=== PATIENT | male | born 1945 | race Two or more races ===

== ENCOUNTER 2017-09-23 10:15 | Inpatient (IN) | payer MEDICAID ==
[~2017-09-23] VITALS: Ht 162.6 cm; Wt 64.6 kg
[2017-09-23] VITALS (9 sets, daily range): BP systolic 147–176; BP diastolic 75–105
[~2017-09-23 10:15] MED LIST: ATORVASTATIN CA10 MG ORAL; JANUVIA25 MG ORAL
[2017-09-23] MEDS: Sodium Chloride 500ML 550 ML IV SCH ×3 (10:33→21:32)
[2017-09-23 10:37] LABS: BASOPHILS % (AUTO) 1.4 % (0.0-2.0); EOSINOPHILS % (AUTO) 1.2 % (0.0-3.0); HEMATOCRIT 50.4 % (42.0-52.0); HEMOGLOBIN 16.8 G/DL (14.2-18.0); LYMPHOCYTES % (AUTO) 43.7 % (20.0-45.0); MEAN CORPUSCULAR VOLUME 91 FL (80-99); MONOCYTES % (AUTO) 13.1 % (1.0-10.0); NEUTROPHILS % (AUTO) 40.5 % (45.0-75.0); PLATELET COUNT 272 K/UL (150-450); RED BLOOD COUNT 5.55 M/UL (4.70-6.10); RED CELL DISTRIBUTION WIDTH 11.5 % (11.6-14.8); WHITE BLOOD COUNT 4.8 K/UL (4.8-10.8)
[2017-09-23 10:42] LABS: APPEARANCE,URINE CLEAR; BILIRUBIN, URINE NEGATIVE (NEGATIVE); COLOR,URINE PALE YELLOW; GLUCOSE, URINE (UA) NEGATIVE (NEGATIVE); KETONES,URINE NEGATIVE (NEGATIVE); LEUKOCYTE ESTERASE ,URINE NEGATIVE (NEGATIVE); NITRITE,URINE NEGATIVE (NEGATIVE); PH,URINE 8 (4.5-8.0); PROTEIN,URINE NEGATIVE (NEGATIVE); UROBILINOGEN,URINE NORMAL MG/DL (0.0-1.0)
[2017-09-23 10:50] LABS: INR 1.1 (0.9-1.1)
[2017-09-23 10:53] LABS: ANION GAP 7 mmol/L (5-15); BLOOD UREA NITROGEN 10 mg/dL (7-18); CALCIUM 9.3 MG/DL (8.5-10.1); CARBON DIOXIDE 28 MMOL/L (21-32); CHLORIDE 103 MMOL/L (98-107); CREATININE 0.9 MG/DL (0.55-1.30); POTASSIUM 3.9 MMOL/L (3.5-5.1); SODIUM 138 MMOL/L (136-145)
--- NOTE | 2017-09-23 10:57 | Diagnostic Imaging Report ---
Indication: Dizziness and headache Technique: spiral acquisitions obtained through the brain. Angled axial and coronal 5 x 5 mm slices were reconstructed. No IV contrast utilized. Radiation dose was minimized using automated exposure control Total dose length product 1460.32 mGycm. CTDIvol(s) 70.38 mGy Comparison: none FINDINGS: There is a 6 mm focus of slightly increased attenuation in the central greta. No evidence of acute hemorrhage or edema otherwise. No mass effect or midline shift. There is age-related enlargement of the ventricles and extra axial CSF spaces. There is periventricular deep white matter ischemic change. Normal block-white differentiation. Visualized orbits are unremarkable. There is minimal ethmoid sinus disease. The mastoids are clear. Intact calvarium. IMPRESSION: 6 mm focus of slightly increased attenuation in the central greta, of uncertain significance. Could represent a small focus of subacute hemorrhage, small vascular malformation, small mass lesion, or could be artifactual. Contrast MRI is recommended for further evaluation No evidence of acute intracranial bleed or mass effect otherwise Chronic and age-related changes, as described Findings discussed by phone with Dr. Osei in the emergency room at the time of interpretation The CT scanner at [facility] is accredited by the [employer] and the scans are performed using protocols designed to limit radiation exposure to as low as reasonably achievable to attain images of sufficient resolution adequate for diagnostic evaluation
[2017-09-23] MEDS ORDERED: Gadavist 7.5mMol/7.5ml vial IV PRN (11:00)
[2017-09-23 11:05] LABS: ALANINE AMINOTRANSFERASE 36 U/L (12-78); ALBUMIN 3.8 G/DL (3.4-5.0); ALBUMIN/GLOBULIN RATIO 0.9 (1.0-2.7); ALKALINE PHOSPHATASE 73 U/L (46-116); ASPARTATE AMINO TRANSFERASE 29 U/L (15-37); BILIRUBIN,TOTAL 0.8 MG/DL (0.2-1.0); CREATINE KINASE 46 U/L (26-308)
--- NOTE | 2017-09-23 11:19 | Diagnostic Imaging Report ---
Indication: Chest pain Technique: One view of the chest Comparison: none Findings: Minimal scarring is seen in both lung apices. There is some central bronchial wall thickening. Lungs and pleural spaces are otherwise clear. Heart size is normal. Impression: No acute process
--- NOTE | 2017-09-23 11:44 | Emergency Room Report ---
History of Present Illness General Chief Complaint: Dizziness Source: Patient, EMS Present Illness HPI Patient was transported to the hospital by BLS. They claim that the patient complained of dizziness. The patient to me complains of headache that severe 10 /10 and blindness. He says that the blindness has worsened over the last week to 2 weeks. Used to have some vision in one of his eyes but that this is now gone completely. He says the headache is 10/10 pounding throughout the head. He denies any fevers or recent trauma. Apparently paramedics were called by this patient's social organization professor. Another woman involved in his care claims that the blindness has been present for over 2 months. He recently saw specialist but she's not sure what type is specialist. The social organization professor called EMS because the patient stated he was suicidal. He stated he has nothing to live for. He is homeless. His plan was to cut himself with a knife that he has. Person who watches over him was unable to find this knife. No chest pain, NVD, dysuria, extremity pain. Allergies: Coded Allergies: No Known Allergies (Unverified , 09/23/17) Patient History Past Medical History: see triage record Social History: Denies: alcohol use, drug use Social History Narrative homeless Reviewed Nursing Documentation: PMH: Agreed; PSxH: Agreed Nursing Documentation-PMH Past Medical History: No Stated History Hx Cardiac Problems: Yes Hx Hypertension: Yes Hx Pacemaker: No Hx Asthma: No Hx COPD: No Hx Diabetes: Yes Hx Cancer: No Hx Gastrointestinal Problems: No Hx Dialysis: No Hx Neurological Problems: No Hx Cerebrovascular Accident: No Hx Seizures: No Review of Systems All Other Systems: negative except mentioned in HPI Physical Exam Vital Signs Date Time Temp Pulse Resp B/P (MAP) Pulse Ox O2 Delivery O2 Flow Rate FiO2 09/23/17 09:53 97.9 60 18 169/100 98 Room Air 97.9 Sp02 EP Interpretation: reviewed, normal General Appearance: well appearing, no apparent distress, GCS 15 Head: normocephalic Eyes: bilateral eye other - Cannot see examiner - dense cataracts bilat ENT: moist mucus membranes Neck: supple Respiratory: lungs clear, normal breath sounds Cardiovascular #1: regular rate, rhythm Cardiovascular #2: 2+ radial (R) Gastrointestinal: normal inspection, normal bowel sounds, non tender, no mass, non-distended Musculoskeletal: back normal, gait/station normal, normal range of motion Neurologic: alert, oriented x3, motor strength/tone normal, DTRs symmetric, sensory intact, cerebellar normal, normal gait, other - Cannot follow finger with extraocular motions. There is some random eye movements. Psychiatric: depressed affect Suicide Risk Assessment: Suicidal Ideation: Yes Had intent to initiate attempt: Yes Pt's plan for suicide attempt: Yes Has means to complete attempt: Yes Skin: normal inspection, warm/dry Medical Decision Making Diagnostic Impression: Primary Impression: Blindness Additional Impressions: Headache Qualified Codes: R51 - Headache Suicidal ideation Cataracts, bilateral Qualified Codes: H26.9 - Unspecified cataract ER Course Patient presents with a blindness with worsening recently. Differential includes stroke, bleed, mass amongst others. With a headache this is quite disconcerting. Evaluation will be with CT the head, chest x-ray EKG and labs including sedimentation rate. Treatment will be with analgesia. Regarding the c/o suicidality this needs to be investigated also. We are attempting to contact our social workers. EKG without injury. CT with possible pontine lesion - recommended MRI. Labs with normal CBC, CMP. ESR slightly elevated, but doubt vasculitis (Temporal arteritis, etc). UA clear. Discussion with person who called paramedics - she claims he stated he wanted to take his life with knife. She looked for one and could not find one. She states seen by Opthalmologist who is trying to schedule cataract surgery. managed services sales consultant consult requested. Not available. Patient still states suicidal. Plan = cut self with knife. Admit med with sitter. Headache better. Admit Dr. Montgomery with consultation Dr. Marvin. Laboratory Tests Test 09/23/17 10:20 White Blood Count 4.8 K/UL (4.8-10.8) Red Blood Count 5.55 M/UL (4.70-6.10) Hemoglobin 16.8 G/DL (14.2-18.0) Hematocrit 50.4 % (42.0-52.0) Mean Corpuscular Volume 91 FL (80-99) Mean Corpuscular Hemoglobin 30.3 PG (27.0-31.0) Mean Corpuscular Hemoglobin Concent 33.4 G/DL (32.0-36.0) Red Cell Distribution Width 11.5 % (11.6-14.8) L Platelet Count 272 K/UL (150-450) Mean Platelet Volume 7.4 FL (6.5-10.1) Neutrophils (%) (Auto) 40.5 % (45.0-75.0) L Lymphocytes (%) (Auto) 43.7 % (20.0-45.0) Monocytes (%) (Auto) 13.1 % (1.0-10.0) H Eosinophils (%) (Auto) 1.2 % (0.0-3.0) Basophils (%) (Auto) 1.4 % (0.0-2.0) Erythrocyte Sedimentation Rate 35 MM/HR (0-20) H Prothrombin Time 11.5 SEC (9.30-11.50) Prothrombin Time INR 1.1 (0.9-1.1) PTT 30 SEC (23-33) Urine Color Pale yellow Urine Appearance Clear Urine pH 8 (4.5-8.0) Urine Specific [place] 1.010 (1.005-1.035) Urine Protein Negative (NEGATIVE) Urine Glucose (UA) Negative (NEGATIVE) Urine Ketones Negative (NEGATIVE) Urine Occult Blood Negative (NEGATIVE) Urine Nitrite Negative (NEGATIVE) Urine Bilirubin Negative (NEGATIVE) Urine Urobilinogen Normal MG/DL (0.0-1.0) Urine Leukocyte Esterase Negative (NEGATIVE) Sodium Level 138 MMOL/L (136-145) Potassium Level 3.9 MMOL/L (3.5-5.1) Chloride Level 103 MMOL/L (98-107) Carbon Dioxide Level 28 MMOL/L (21-32) Anion Gap 7 mmol/L (5-15) Blood Urea Nitrogen 10 mg/dL (7-18) Creatinine 0.9 MG/DL (0.55-1.30) Estimate Glomerular Filtration Rate mL/min (>60) Glucose Level 94 MG/DL (74-106) Calcium Level 9.3 MG/DL (8.5-10.1) Total Bilirubin 0.8 MG/DL (0.2-1.0) Aspartate Amino Transferase (AST) 29 U/L (15-37) Alanine Aminotransferase (ALT) 36 U/L (12-78) Alkaline Phosphatase 73 U/L (46-116) Total Creatine Kinase 46 U/L (26-308) Troponin I 0.000 ng/mL (0.000-0.056) Pro-B-Type Natriuretic Peptide 85 pg/mL (0-125) Total Protein 8.1 G/DL (6.4-8.2) Albumin 3.8 G/DL (3.4-5.0) Globulin 4.3 g/dL Albumin/Globulin Ratio 0.9 (1.0-2.7) L Thyroid Stimulating Hormone (TSH) 1.165 uiU/mL (0.358-3.740) EKG Diagnostic Results Rate: bradycardiac Rhythm: NSR ST Segments: no acute changes Rhythm Strip Diag. Results EP Interpretation: yes Rhythm: no PVC's, no ectopy, other - Bradycardia Chest X-Ray Diagnostic Results Chest X-Ray Diagnostic Results : Chest X-Ray Ordered: Yes # of Views/Limited/Complete: 1 View Indication: Other EP Interpretation: Yes Interpretation: no consolidation, no effusion, no pneumothorax, other - COPD Impression: Other Electronically Signed by: Electronically signed by Sean Osei MD CT/MRI/US Diagnostic Results CT/MRI/US Diagnostic Results #1: Imaging Test Ordered: CT head Impression 6 mm focus of slightly increased attenuation in the central greta. MRI recommended CT/MRI/US Diagnostic Results #2: Imaging Test Ordered: MRI with contrast brain Last Vital Signs Date Time Temp Pulse Resp B/P (MAP) Pulse Ox O2 Delivery O2 Flow Rate FiO2 09/23/17 19:40 97.8 60 15 150/97 99 Room Air 97.8 Status: improved Disposition: ADMITTED INPATIENT Condition: Serious Referrals: NON PHYSICIAN (PCP) Sean Osei M.D. Sep 23, 2017 11:44
--- NOTE | 2017-09-23 12:22 | Diagnostic Imaging Report ---
Indication: Blindness times one week. Headache. Evaluation of abnormality demonstrated on recent CT scan Technique: sagittal T1 fast spin echo, axial T1 and T2 FLAIR PROPELLER, axial T2 FS PROPELLER, T2* GRE, axial diffusion weighted images, post contrast axial and coronal T1 FLAIR PROPELLER images. ADC and exponential ADC maps generated Comparison: Brain CT performed one hour earlier Findings: Tiny lacunar infarcts are seen in the bilateral cerebral peduncles, but these do not correlate to the abnormality demonstrated on recent CT scan. A tiny hyperintense focus is seen to the right of the midline in the greta on the T2 FLAIR and T2-weighted images, but there is not seen on any other images, an is more lateral smaller than the CT abnormality. No abnormal areas of restricted diffusion to suggest acute infarction. No acute hemorrhage or edema. No mass effect nor midline shift. No abnormal contrast enhancement. There is age-related enlargement of the ventricles and extra axial CSF spaces. There is periventricular and deep white matter hyperintensity consistent with chronic ischemic change. The vascular flow voids are preserved. Visualized orbits and sinuses are unremarkable. . Impression: No findings are demonstrated that would correlate with the pontine abnormality reported on recent brain CT scan. That finding is therefore most likely artifactual Negative for acute intracranial bleed, mass effect, infarct, or contrast enhancing lesion Chronic and age-related changes, as described
[2017-09-23] MEDS ORDERED: NKM (12:31)
[2017-09-23] MEDS ORDERED: Albuterol/Ipratropium 3ml neb HHN PRN (18:00)
[2017-09-23] MEDS ORDERED: Morphine Sulfate 2mg/ml Inj(IV/IM USE ONLY) IVP PRN (18:00)
[2017-09-23] MEDS ORDERED: Miralax 17gm pkt ORAL PRN (18:00)
[2017-09-23] MEDS ORDERED: Nitroglycerin Subl 0.4mg tab SL PRN (18:00)
[2017-09-23] MEDS ORDERED: LORazepam Inj 2mg/ml 1ml IV PRN (18:00)
[2017-09-23] MEDS ORDERED: Mylanta II UD 30ml ORAL PRN (18:00)
[2017-09-23] MEDS: NovoLOG Insulin Flexpen SUBQ SCH (21:00)
--- NOTE | 2017-09-23 21:15 | History and Physical Report ---
DATE OF ADMISSION: 09/23/2017 CONSULTANTS: 1. Jesus Pichardo M.D. 2. Cynthia Marvin M.D. CHIEF COMPLIANT: Suicidal ideation, headache, blindness, and hypercholesterol. HISTORY: The patient is a 72-year-old male, who presents to [facility] with history of headache, has to kill himself. The patient in the ER, diagnosed with the above, being admitted to medical floor for further treatment. Currently, calm, lethargic in bed, O2 NC, refusing to answer questions. PAST MEDICAL HISTORY: As mentioned, headache, blindness, and hypercholesterol. PAST SURGICAL HISTORY: Unknown. MEDICATIONS: Gadavist and IV fluids. ALLERGIES: Denies. SOCIAL HISTORY: Unable to obtain secondary to the patient's condition. REVIEW OF SYSTEMS: Unavailable. PHYSICAL EXAMINATION: GENERAL: Lethargic in bed, refusing to answer questions. VITAL SIGNS: Temperature is 97 degrees, pulse 55, respirations 17, and blood pressure 173/87. CARDIOVASCULAR: No murmur. LUNGS: Distant and clear. ABDOMEN: Bowel sounds positive. Nontender. Nondistended. EXTREMITIES: No cyanosis, clubbing, or edema. NEUROLOGIC: The patient moves all extremities, does not want to follow commands. LABORATORY AND DIAGNOSTIC DATA: CBC is normal. BMP is normal. INR is 1.1 and PTT is 30. Urinalysis is negative. ASSESSMENT: 1. Headache. 2. Blindness. 3. Suicidal. 4. Hypercholesterol. 5. Hypertension. PLAN: 1. Continue previous medications. 2. Psychiatric treatment. 3. Dietary followup. 4. Check labs in the morning. 5. OT, PT, dietary evaluation. 6. CBC and BMP in the morning. 7. Dr. Pichardo, Dr. Marvin, and Dr. Yanez to evaluation. 8. We will continue to follow this patient. Juan Montgomery D.O. DR: JAIME JOB#: [id number] CC:
[2017-09-23] MEDS: Heparin 5000 units/ml inj SUBQ SCH (21:33)
--- NOTE | 2017-09-23 23:14 | Diagnostic Imaging Report ---
APPROVED REPORT CPT Code: 28074 Vascular Symptoms Comments: SYNCOPE. Doppler Spectral Velocity Analysis RightLeft BILATERAL: CCA/BULB - Imaging reveals irregular, minimal plaque in both carotid bulbs. arteries. The Doppler spectral flow analysis is within normal limits throughout the internal and external carotid arteries. VERTEBRALS - Imaging reveals both vertebral arteries to be patent, without evidence of stenosis or steal.
[2017-09-24] VITALS (7 sets, daily range): BP systolic 120–147; BP diastolic 57–93
[2017-09-24] MEDS: Sodium Chloride 500ML 550 ML IV SCH (04:49)
[2017-09-24] MEDS: NovoLOG Insulin Flexpen SUBQ SCH ×4 (06:14→21:00)
[2017-09-24 07:04] LABS: BASOPHILS % (AUTO) 1.4 % (0.0-2.0); EOSINOPHILS % (AUTO) 2.3 % (0.0-3.0); HEMATOCRIT 44.1 % (42.0-52.0); HEMOGLOBIN 15.5 G/DL (14.2-18.0); LYMPHOCYTES % (AUTO) 48.6 % (20.0-45.0); MEAN CORPUSCULAR VOLUME 90 FL (80-99); MONOCYTES % (AUTO) 14.6 % (1.0-10.0); PLATELET COUNT 222 K/UL (150-450); RED CELL DISTRIBUTION WIDTH 11.1 % (11.6-14.8); WHITE BLOOD COUNT 3.7 K/UL (4.8-10.8)
[2017-09-24 07:16] LABS: INR 1.1 (0.9-1.1)
[2017-09-24 07:39] LABS: ALANINE AMINOTRANSFERASE 30 U/L (12-78); ALBUMIN 3.2 G/DL (3.4-5.0); ALBUMIN/GLOBULIN RATIO 0.9 (1.0-2.7); ALKALINE PHOSPHATASE 63 U/L (46-116); ANION GAP 9 mmol/L (5-15); ASPARTATE AMINO TRANSFERASE 26 U/L (15-37); BILIRUBIN,TOTAL 0.9 MG/DL (0.2-1.0); BLOOD UREA NITROGEN 9 mg/dL (7-18); CARBON DIOXIDE 25 MMOL/L (21-32); CHLORIDE 105 MMOL/L (98-107); CHOLESTEROL 167 MG/DL (< 200); CREATININE 0.8 MG/DL (0.55-1.30); HDL CHOLESTEROL 49 MG/DL (40-60); POTASSIUM 3.8 MMOL/L (3.5-5.1); SODIUM 139 MMOL/L (136-145); TRIGLYCERIDES 69 MG/DL (30-150)
[2017-09-24] MEDS: sitaGLIPtin 25mg tab ORAL SCH (09:20)
[2017-09-24] MEDS: Heparin 5000 units/ml inj SUBQ SCH ×2 (09:22→22:14)
--- NOTE | 2017-09-24 12:05 | General Progress Note ---
Assessment/Plan Problem List: (1) Dizziness ICD Codes: R42 - Dizziness and giddiness SNOMED: 841857459, 548857569 (2) Suicidal ideation ICD Codes: R45.851 - Suicidal ideations SNOMED: 1029174 (3) Cataracts, bilateral ICD Codes: H26.9 - Unspecified cataract SNOMED: 43766664 Qualifiers: Qualified Codes: H26.9 - Unspecified cataract (4) Blindness ICD Codes: H54.7 - Unspecified visual loss SNOMED: 076959362 (5) Headache ICD Codes: R51 - Headache SNOMED: 01742519 Qualifiers: Qualified Codes: R51 - Headache Status: unchanged Assessment/Plan ot pt diet pain control neuro psyc f/u cbc bmp am dc plan Subjective Constitutional: Reports: weakness Allergies: Coded Allergies: No Known Allergies (Unverified , 09/23/17) All Systems: reviewed and negative except above Subjective calm in bed Objective Last 24 Hour Vital Signs Date Time Temp Pulse Resp B/P (MAP) Pulse Ox O2 Delivery O2 Flow Rate FiO2 09/24/17 09:00 Room Air 09/24/17 08:00 97.7 64 16 147/89 (108) 95 97.7 09/24/17 04:00 98.3 68 18 120/57 (78) 95 98.3 09/24/17 00:22 Room Air 09/24/17 00:00 97.9 66 20 146/93 (110) 98 97.9 09/23/17 20:00 97.7 60 20 147/89 (108) 100 97.7 09/23/17 19:40 97.8 60 15 150/97 99 Room Air 97.8 09/23/17 19:40 97.8 60 15 150/97 99 Room Air 208.0 09/23/17 17:30 97.8 55 19 169/93 99 Room Air 97.8 09/23/17 16:30 51 17 154/105 99 Room Air 09/23/17 15:30 57 16 155/84 99 Room Air 09/23/17 14:30 56 18 159/75 100 Room Air 09/23/17 13:30 97.8 55 17 173/87 100 Room Air 97.8 09/23/17 12:30 97.5 57 14 176/89 100 Room Air 97.5 Intake and Output 09/23/17 09/24/17 19:00 07:00 Intake Total 300 ml 550 ml Output Total 400 ml Balance 300 ml 150 ml Intake IV Total 300 ml 550 ml Output Urine Total 400 ml # Voids 1 3 Laboratory Tests 09/24/17 06:10: White Blood Count 3.7L, Red Blood Count 4.90, Hemoglobin 15.5, Hematocrit 44.1, Mean Corpuscular Volume 90, Mean Corpuscular Hemoglobin 31.6H, Mean Corpuscular Hemoglobin Concent 35.1, Red Cell Distribution Width 11.1L, Platelet Count 222, Mean Platelet Volume 8.1, Neutrophils (%) (Auto) 33.0L, Lymphocytes (%) (Auto) 48.6H, Monocytes (%) (Auto) 14.6H, Eosinophils (%) (Auto) 2.3, Basophils (%) ( Auto) 1.4, Prothrombin Time 11.2, Prothromb Time International Ratio 1.1, Activated Partial Thromboplast Time 29, Sodium Level 139, Potassium Level 3.8, Chloride Level 105, Carbon Dioxide Level 25, Anion Gap 9, Blood Urea Nitrogen 9 , Creatinine 0.8, Estimat Glomerular Filtration Rate , Glucose Level 84, Calcium Level 9.0, Total Bilirubin 0.9, Aspartate Amino Transf (AST/SGOT) 26, Alanine Aminotransferase (ALT/SGPT) 30, Alkaline Phosphatase 63, Total Protein 6.9, Albumin 3.2L, Globulin 3.7, Albumin/Globulin Ratio 0.9L, Triglycerides Level 69, Cholesterol Level 167, LDL Cholesterol 118H, HDL Cholesterol 49, Cholesterol/HDL Ratio 3.4, Thyroid Stimulating Hormone (TSH) 1.214 Height (Feet): 5 Height (Inches): 4.00 Weight (Pounds): 145 General Appearance: lethargic EENT: normal ENT inspection Neck: normal alignment Cardiovascular: normal peripheral pulses, normal rate, regular rhythm Respiratory/Chest: chest wall non-tender, lungs clear, normal breath sounds Abdomen: normal bowel sounds, non tender, soft Extremities: normal inspection Edema: no edema noted Arm (L), no edema noted Arm (R), no edema noted Leg (L), no edema noted Leg (R), no edema noted Pedal (L), no edema noted Pedal (R), no edema noted Generalized Neurologic: motor weakness Skin: normal pigmentation, warm/dry MontgomeryJuang DO Sep 24, 2017 12:05
--- NOTE | 2017-09-24 12:05 | Consultation ---
History of Present Illness General Date patient seen: Sep 24, 2017 Chief Complaint: Dizziness Present Illness HPI 72-year-old male, who presents to [facility] with history of headache the pt stated that he was suicidal in er. During my evaluation he stated that he is depressed about his eye and not suicidal. the pt denied depressive sxs no nj or psychosis Allergies: Coded Allergies: No Known Allergies (Unverified , 09/23/17) Medication History Scheduled Atorvastatin Calcium* (Lipitor*), 10 MG ORAL BEDTIME, (Reported) No Known Medications* (NKM - No Known Medications*), 0 ., (Reported) Sitagliptin* (Januvia*), 25 MG ORAL DAILY, (Reported) Patient History Limited by: medical condition History Provided By: Patient, Medical Record, PMD Healthcare decision maker Resuscitation status Full Code Advanced Directive on File No Past Medical/Surgical History Past Medical/Surgical History: (1) Suicidal ideation (2) Cataracts, bilateral (3) Dizziness (4) Blindness (5) Headache (6) Diabetes mellitus (7) unable to care for himself Review of Systems Psychiatric: Reports: prior hx, anxiety, depressed feelings, emotional problems Physical Exam General Appearance: no apparent distress, alert Neurologic: oriented x 3, responsive, depressed affect Last 24 Hour Vital Signs Date Time Temp Pulse Resp B/P (MAP) Pulse Ox O2 Delivery O2 Flow Rate FiO2 09/24/17 09:00 Room Air 09/24/17 08:00 97.7 64 16 147/89 (108) 95 97.7 09/24/17 04:00 98.3 68 18 120/57 (78) 95 98.3 09/24/17 00:22 Room Air 09/24/17 00:00 97.9 66 20 146/93 (110) 98 97.9 09/23/17 20:00 97.7 60 20 147/89 (108) 100 97.7 09/23/17 19:40 97.8 60 15 150/97 99 Room Air 97.8 09/23/17 19:40 97.8 60 15 150/97 99 Room Air 208.0 09/23/17 17:30 97.8 55 19 169/93 99 Room Air 97.8 09/23/17 16:30 51 17 154/105 99 Room Air 09/23/17 15:30 57 16 155/84 99 Room Air 09/23/17 14:30 56 18 159/75 100 Room Air 09/23/17 13:30 97.8 55 17 173/87 100 Room Air 97.8 09/23/17 12:30 97.5 57 14 176/89 100 Room Air 97.5 Intake and Output 09/23/17 09/24/17 19:00 07:00 Intake Total 300 ml 550 ml Output Total 400 ml Balance 300 ml 150 ml Intake IV Total 300 ml 550 ml Output Urine Total 400 ml # Voids 1 3 Laboratory Tests Test 09/24/17 06:10 White Blood Count 3.7 K/UL (4.8-10.8) L Red Blood Count 4.90 M/UL (4.70-6.10) Hemoglobin 15.5 G/DL (14.2-18.0) Hematocrit 44.1 % (42.0-52.0) Mean Corpuscular Volume 90 FL (80-99) Mean Corpuscular Hemoglobin 31.6 PG (27.0-31.0) H Mean Corpuscular Hemoglobin Concent 35.1 G/DL (32.0-36.0) Red Cell Distribution Width 11.1 % (11.6-14.8) L Platelet Count 222 K/UL (150-450) Mean Platelet Volume 8.1 FL (6.5-10.1) Neutrophils (%) (Auto) 33.0 % (45.0-75.0) L Lymphocytes (%) (Auto) 48.6 % (20.0-45.0) H Monocytes (%) (Auto) 14.6 % (1.0-10.0) H Eosinophils (%) (Auto) 2.3 % (0.0-3.0) Basophils (%) (Auto) 1.4 % (0.0-2.0) Prothrombin Time 11.2 SEC (9.30-11.50) Prothromb Time International Ratio 1.1 (0.9-1.1) Activated Partial Thromboplast Time 29 SEC (23-33) Sodium Level 139 MMOL/L (136-145) Potassium Level 3.8 MMOL/L (3.5-5.1) Chloride Level 105 MMOL/L (98-107) Carbon Dioxide Level 25 MMOL/L (21-32) Anion Gap 9 mmol/L (5-15) Blood Urea Nitrogen 9 mg/dL (7-18) Creatinine 0.8 MG/DL (0.55-1.30) Estimat Glomerular Filtration Rate mL/min (>60) Glucose Level 84 MG/DL (74-106) Calcium Level 9.0 MG/DL (8.5-10.1) Total Bilirubin 0.9 MG/DL (0.2-1.0) Aspartate Amino Transf (AST/SGOT) 26 U/L (15-37) Alanine Aminotransferase (ALT/SGPT) 30 U/L (12-78) Alkaline Phosphatase 63 U/L (46-116) Total Protein 6.9 G/DL (6.4-8.2) Albumin 3.2 G/DL (3.4-5.0) L Globulin 3.7 g/dL Albumin/Globulin Ratio 0.9 (1.0-2.7) L Triglycerides Level 69 MG/DL (30-150) Cholesterol Level 167 MG/DL (< 200) LDL Cholesterol 118 mg/dL (<100) H HDL Cholesterol 49 MG/DL (40-60) Cholesterol/HDL Ratio 3.4 (3.3-4.4) Thyroid Stimulating Hormone (TSH) 1.214 uiU/mL (0.358-3.740) Microbiology Date/Time Source Procedure Growth Status 09/23/17 20:55 Rectum Received Height (Feet): 5 Height (Inches): 4.00 Weight (Pounds): 145 Medications Current Medications Medications (Trade) Dose Ordered Sig/Cornelius Route PRN Reason Start Time Stop Time Status Last Admin Dose Admin Acetaminophen (Tylenol) 650 mg Q4H PRN ORAL fever (temp>100.5F) 09/23/17 18:00 10/23/17 17:59 Al Hydroxide/Mg Hydroxide (Mylanta II) 30 ml Q6H PRN ORAL dyspepsia 09/23/17 18:00 10/23/17 17:59 Albuterol/ Ipratropium (Albuterol/ Ipratropium) 3 ml Q4H PRN HHN Shortness of Breath 09/23/17 18:00 09/28/17 17:59 Atorvastatin Calcium (Lipitor) 10 mg BEDTIME ORAL 09/23/17 21:00 10/23/17 20:59 09/23/17 21:32 Clonidine HCl (Catapres Tab) 0.1 mg Q4H PRN ORAL For High Blood Pressure 09/23/17 18:00 10/23/17 17:59 Dextrose (Dextrose 50%) 25 ml STAT PRN IV Hypoglycemia 09/23/17 18:00 10/23/17 17:59 Dextrose (Dextrose 50%) 50 ml STAT PRN IV Hypoglycemia 09/23/17 18:00 10/23/17 17:59 Gadobutrol (Gadavist) 7.5 mmol NOW PRN IV Radiology Procedure 09/23/17 11:00 09/27/17 10:52 Heparin Sodium (Porcine) (Heparin 5000 units/ml) 5,000 units EVERY 12 HOURS SUBQ 09/23/17 21:00 10/23/17 20:59 09/24/17 09:22 Insulin Aspart (NovoLOG) BEFORE MEALS AND HS SUBQ 09/23/17 21:00 10/23/17 20:59 Lorazepam (Ativan 2mg/ml 1ml) 0.5 mg Q4H PRN IV For Anxiety 09/23/17 18:00 09/30/17 17:59 Morphine Sulfate (Morphine Sulfate) 1 mg Q4H PRN IVP For Pain 7-09/23/17 18:00 09/30/17 17:59 Nitroglycerin (Ntg) 0.4 mg Q5M X 3 DOSES PRN SL Prn Chest Pain 09/23/17 18:00 10/23/17 17:59 Ondansetron HCl (Zofran) 4 mg Q6H PRN IVP Nausea & Vomiting 09/23/17 18:00 10/23/17 17:59 Polyethylene Glycol (Miralax) 17 gm HSPRN PRN ORAL Constipation 09/23/17 18:00 10/23/17 17:59 Sitagliptin Phosphate (Januvia) 25 mg DAILY ORAL 09/24/17 09:00 10/24/17 08:59 09/24/17 09:20 Temazepam (Restoril) 15 mg HSPRN PRN ORAL Insomnia 09/23/17 18:00 09/30/17 17:59 Assessment/Plan Status: stable Assessment/Plan Adjustment Disorder Anxiety -ativan prn -the pt is not hold-able and not at imminent dts/dto Cynthia Marvin MD Sep 24, 2017 12:05
--- NOTE | 2017-09-24 12:31 | Consultation ---
History of Present Illness General Date patient seen: Sep 24, 2017 Chief Complaint: Dizziness Present Illness HPI 72 year old male with hx of DM, HtN, with recent blindness, Used to have some vision in one of his eyes but that this is now gone completely. Apparently paramedics were called by this patient's older adult social work specialist. Because he was not able to take care of himself. there was a concern that he might be suicidal. Allergies: Coded Allergies: No Known Allergies (Unverified , 09/23/17) Medication History Scheduled Atorvastatin Calcium* (Lipitor*), 10 MG ORAL BEDTIME, (Reported) No Known Medications* (NKM - No Known Medications*), 0 ., (Reported) Sitagliptin* (Januvia*), 25 MG ORAL DAILY, (Reported) Patient History Healthcare decision maker Resuscitation status Full Code Advanced Directive on File No Past Medical/Surgical History Past Medical/Surgical History: (1) Diabetes mellitus Review of Systems All Other Systems: negative except mentioned in HPI Physical Exam General Appearance: WD/WN Lines, tubes and drains: peripheral, central line HEENT: normocephalic, atraumatic Neck: non-tender, normal alignment Respiratory/Chest: chest wall non-tender, lungs clear Breasts: no masses Cardiovascular/Chest: normal peripheral pulses Abdomen: normal bowel sounds Genitourinary/Rectal: normal genital exam, normal prostate exam Extremities: normal range of motion Last 24 Hour Vital Signs Date Time Temp Pulse Resp B/P (MAP) Pulse Ox O2 Delivery O2 Flow Rate FiO2 09/24/17 12:00 96.3 63 16 141/80 (100) 98 96.3 09/24/17 09:00 Room Air 09/24/17 08:00 97.7 64 16 147/89 (108) 95 97.7 09/24/17 04:00 98.3 68 18 120/57 (78) 95 98.3 09/24/17 00:22 Room Air 09/24/17 00:00 97.9 66 20 146/93 (110) 98 97.9 09/23/17 20:00 97.7 60 20 147/89 (108) 100 97.7 09/23/17 19:40 97.8 60 15 150/97 99 Room Air 97.8 09/23/17 19:40 97.8 60 15 150/97 99 Room Air 208.0 09/23/17 17:30 97.8 55 19 169/93 99 Room Air 97.8 09/23/17 16:30 51 17 154/105 99 Room Air 09/23/17 15:30 57 16 155/84 99 Room Air 09/23/17 14:30 56 18 159/75 100 Room Air 09/23/17 13:30 97.8 55 17 173/87 100 Room Air 97.8 09/23/17 12:30 97.5 57 14 176/89 100 Room Air 97.5 Intake and Output 09/23/17 09/24/17 19:00 07:00 Intake Total 300 ml 550 ml Output Total 400 ml Balance 300 ml 150 ml Intake IV Total 300 ml 550 ml Output Urine Total 400 ml # Voids 1 3 Laboratory Tests Test 09/24/17 06:10 White Blood Count 3.7 K/UL (4.8-10.8) L Red Blood Count 4.90 M/UL (4.70-6.10) Hemoglobin 15.5 G/DL (14.2-18.0) Hematocrit 44.1 % (42.0-52.0) Mean Corpuscular Volume 90 FL (80-99) Mean Corpuscular Hemoglobin 31.6 PG (27.0-31.0) H Mean Corpuscular Hemoglobin Concent 35.1 G/DL (32.0-36.0) Red Cell Distribution Width 11.1 % (11.6-14.8) L Platelet Count 222 K/UL (150-450) Mean Platelet Volume 8.1 FL (6.5-10.1) Neutrophils (%) (Auto) 33.0 % (45.0-75.0) L Lymphocytes (%) (Auto) 48.6 % (20.0-45.0) H Monocytes (%) (Auto) 14.6 % (1.0-10.0) H Eosinophils (%) (Auto) 2.3 % (0.0-3.0) Basophils (%) (Auto) 1.4 % (0.0-2.0) Prothrombin Time 11.2 SEC (9.30-11.50) Prothromb Time International Ratio 1.1 (0.9-1.1) Activated Partial Thromboplast Time 29 SEC (23-33) Sodium Level 139 MMOL/L (136-145) Potassium Level 3.8 MMOL/L (3.5-5.1) Chloride Level 105 MMOL/L (98-107) Carbon Dioxide Level 25 MMOL/L (21-32) Anion Gap 9 mmol/L (5-15) Blood Urea Nitrogen 9 mg/dL (7-18) Creatinine 0.8 MG/DL (0.55-1.30) Estimat Glomerular Filtration Rate mL/min (>60) Glucose Level 84 MG/DL (74-106) Calcium Level 9.0 MG/DL (8.5-10.1) Total Bilirubin 0.9 MG/DL (0.2-1.0) Aspartate Amino Transf (AST/SGOT) 26 U/L (15-37) Alanine Aminotransferase (ALT/SGPT) 30 U/L (12-78) Alkaline Phosphatase 63 U/L (46-116) Total Protein 6.9 G/DL (6.4-8.2) Albumin 3.2 G/DL (3.4-5.0) L Globulin 3.7 g/dL Albumin/Globulin Ratio 0.9 (1.0-2.7) L Triglycerides Level 69 MG/DL (30-150) Cholesterol Level 167 MG/DL (< 200) LDL Cholesterol 118 mg/dL (<100) H HDL Cholesterol 49 MG/DL (40-60) Cholesterol/HDL Ratio 3.4 (3.3-4.4) Thyroid Stimulating Hormone (TSH) 1.214 uiU/mL (0.358-3.740) Microbiology Date/Time Source Procedure Growth Status 09/23/17 20:55 Rectum Received Height (Feet): 5 Height (Inches): 4.00 Weight (Pounds): 145 Medications Current Medications Medications (Trade) Dose Ordered Sig/Cornelius Route PRN Reason Start Time Stop Time Status Last Admin Dose Admin Acetaminophen (Tylenol) 650 mg Q4H PRN ORAL fever (temp>100.5F) 09/23/17 18:00 10/23/17 17:59 Al Hydroxide/Mg Hydroxide (Mylanta II) 30 ml Q6H PRN ORAL dyspepsia 09/23/17 18:00 10/23/17 17:59 Albuterol/ Ipratropium (Albuterol/ Ipratropium) 3 ml Q4H PRN HHN Shortness of Breath 09/23/17 18:00 09/28/17 17:59 Atorvastatin Calcium (Lipitor) 10 mg BEDTIME ORAL 09/23/17 21:00 10/23/17 20:59 09/23/17 21:32 Clonidine HCl (Catapres Tab) 0.1 mg Q4H PRN ORAL For High Blood Pressure 09/23/17 18:00 10/23/17 17:59 Dextrose (Dextrose 50%) 25 ml STAT PRN IV Hypoglycemia 09/23/17 18:00 10/23/17 17:59 Dextrose (Dextrose 50%) 50 ml STAT PRN IV Hypoglycemia 09/23/17 18:00 10/23/17 17:59 Gadobutrol (Gadavist) 7.5 mmol NOW PRN IV Radiology Procedure 09/23/17 11:00 09/27/17 10:52 Heparin Sodium (Porcine) (Heparin 5000 units/ml) 5,000 units EVERY 12 HOURS SUBQ 09/23/17 21:00 10/23/17 20:59 09/24/17 09:22 Insulin Aspart (NovoLOG) BEFORE MEALS AND HS SUBQ 09/23/17 21:00 10/23/17 20:59 Lorazepam (Ativan 2mg/ml 1ml) 0.5 mg Q4H PRN IV For Anxiety 09/23/17 18:00 09/30/17 17:59 Morphine Sulfate (Morphine Sulfate) 1 mg Q4H PRN IVP For Pain 7-09/23/17 18:00 09/30/17 17:59 Nitroglycerin (Ntg) 0.4 mg Q5M X 3 DOSES PRN SL Prn Chest Pain 09/23/17 18:00 10/23/17 17:59 Ondansetron HCl (Zofran) 4 mg Q6H PRN IVP Nausea & Vomiting 09/23/17 18:00 10/23/17 17:59 Polyethylene Glycol (Miralax) 17 gm HSPRN PRN ORAL Constipation 09/23/17 18:00 10/23/17 17:59 Sitagliptin Phosphate (Januvia) 25 mg DAILY ORAL 09/24/17 09:00 10/24/17 08:59 09/24/17 09:20 Temazepam (Restoril) 15 mg HSPRN PRN ORAL Insomnia 09/23/17 18:00 09/30/17 17:59 Assessment/Plan Problem List: (1) unable to care for himself (2) Cataracts, bilateral ICD Codes: H26.9 - Unspecified cataract SNOMED: 52962280 Qualifiers: Qualified Codes: H26.9 - Unspecified cataract (3) Diabetes mellitus ICD Codes: E11.9 - Type 2 diabetes mellitus without complications SNOMED: 71497219 Assessment/Plan social service sliding scale diabetic diet dc planning Jesus Pichardo MD Sep 24, 2017 12:31
--- NOTE | 2017-09-24 15:53 | Cardiology Report ---
APPROVED REPORT EXAM: Two-dimensional and M-mode echocardiogram with Doppler and color Doppler. INDICATION LV function M-Mode DIMENSIONS IVSd1.2 (0.7-1.1cm)Left Atrium (MM)3.8 (1.6-4.0cm) LVDd4.7 (3.5-5.6cm)Aortic Root3.5 (2.0-3.7cm) PWd1.0 (0.7-1.1cm)Aortic Cusp Exc.1.6 (1.5-2.0cm) LVDs3.5 (2.5-4.0cm) PWs1.0 cm Other Information Technically limited study due to pt's breathing. Normal left ventricular chamber size, systolic function and wall motion to extent visualized. Left ventricular ejection fraction estimated to be 60 %. Borderline mild left ventricular hypertrophy. No evidence of pericardial effusion. All other cardiac chamber sizes are within normal limits. Focal aortic valve sclerosis with adequate cusp excursion. Thickened mitral valve leaflets with normal excursion. Mitral annulus and aortic root calcification. Pulmonic valve not well visualized. Normal tricuspid valve structure. IVC at normal size with physiologic collapse. A color flow and spectral Doppler study was performed and revealed: Mild mitral regurgitation. Mitral diastolic velocities suggest reduced left ventricular relaxation c/w mild LV diastolic dysfunction (Grade I ). Trace tricuspid regurgitation. Tricuspid systolic velocities suggests peak right ventricular systolic pressure of 15 mmHg.
--- NOTE | 2017-09-24 16:57 | Cardiology Report ---
APPROVED REPORT EKG Measurement Heart [id number] Sinus bradycardia Otherwise normal ECG
[2017-09-24] MEDS ORDERED: NS 500ML ONE (17:14)
--- NOTE | 2017-09-24 19:56 | Cardiology Progress Note ---
Assessment/Plan Assessment/Plan The patient is seen and examined, full consult note will be dictated. Objective Last 24 Hour Vital Signs Date Time Temp Pulse Resp B/P (MAP) Pulse Ox O2 Delivery O2 Flow Rate FiO2 09/24/17 17:51 98.5 69 20 129/72 (91) 97 98.5 09/24/17 16:00 98.5 69 20 129/72 (91) 97 98.5 09/24/17 12:00 96.3 63 16 141/80 (100) 98 96.3 09/24/17 09:00 Room Air 09/24/17 08:00 97.7 64 16 147/89 (108) 95 97.7 09/24/17 04:00 98.3 68 18 120/57 (78) 95 98.3 09/24/17 00:22 Room Air 09/24/17 00:00 97.9 66 20 146/93 (110) 98 97.9 09/23/17 20:00 97.7 60 20 147/89 (108) 100 97.7 Intake and Output 09/23/17 09/24/17 19:00 07:00 Intake Total 300 ml 550 ml Output Total 400 ml Balance 300 ml 150 ml IV Total 300 ml 550 ml Output Urine Total 400 ml # Voids 1 3 Laboratory Tests Test 09/24/17 06:10 White Blood Count 3.7 K/UL (4.8-10.8) L Red Blood Count 4.90 M/UL (4.70-6.10) Hemoglobin 15.5 G/DL (14.2-18.0) Hematocrit 44.1 % (42.0-52.0) Mean Corpuscular Volume 90 FL (80-99) Mean Corpuscular Hemoglobin 31.6 PG (27.0-31.0) H Mean Corpuscular Hemoglobin Concent 35.1 G/DL (32.0-36.0) Red Cell Distribution Width 11.1 % (11.6-14.8) L Platelet Count 222 K/UL (150-450) Mean Platelet Volume 8.1 FL (6.5-10.1) Neutrophils (%) (Auto) 33.0 % (45.0-75.0) L Lymphocytes (%) (Auto) 48.6 % (20.0-45.0) H Monocytes (%) (Auto) 14.6 % (1.0-10.0) H Eosinophils (%) (Auto) 2.3 % (0.0-3.0) Basophils (%) (Auto) 1.4 % (0.0-2.0) Prothrombin Time 11.2 SEC (9.30-11.50) Prothromb Time International Ratio 1.1 (0.9-1.1) Activated Partial Thromboplast Time 29 SEC (23-33) Sodium Level 139 MMOL/L (136-145) Potassium Level 3.8 MMOL/L (3.5-5.1) Chloride Level 105 MMOL/L (98-107) Carbon Dioxide Level 25 MMOL/L (21-32) Anion Gap 9 mmol/L (5-15) Blood Urea Nitrogen 9 mg/dL (7-18) Creatinine 0.8 MG/DL (0.55-1.30) Estimat Glomerular Filtration Rate mL/min (>60) Glucose Level 84 MG/DL (74-106) Calcium Level 9.0 MG/DL (8.5-10.1) Total Bilirubin 0.9 MG/DL (0.2-1.0) Aspartate Amino Transf (AST/SGOT) 26 U/L (15-37) Alanine Aminotransferase (ALT/SGPT) 30 U/L (12-78) Alkaline Phosphatase 63 U/L (46-116) Total Protein 6.9 G/DL (6.4-8.2) Albumin 3.2 G/DL (3.4-5.0) L Globulin 3.7 g/dL Albumin/Globulin Ratio 0.9 (1.0-2.7) L Triglycerides Level 69 MG/DL (30-150) Cholesterol Level 167 MG/DL (< 200) LDL Cholesterol 118 mg/dL (<100) H HDL Cholesterol 49 MG/DL (40-60) Cholesterol/HDL Ratio 3.4 (3.3-4.4) Thyroid Stimulating Hormone (TSH) 1.214 uiU/mL (0.358-3.740) Microbiology Date/Time Source Procedure Growth Status 09/23/17 20:55 Rectum Received Flavio Yanez MD Sep 24, 2017 19:56
[2017-09-25] VITALS: BP 137/96
--- NOTE | 2017-09-25 01:45 | Consultation ---
DATE OF CONSULTATION: 09/24/2017 CARDIOLOGY CONSULTATION CONSULTING PHYSICIAN: Flavio Yanez M.D. REFERRING PHYSICIAN: Juan Montgomery D.O. REASON FOR CONSULTATION: Management of accelerated hypertension. HISTORY OF PRESENT ILLNESS: The patient is a very unfortunate 72-year-old gentleman, who was transferred to this hospital by the S with the patient complaining about dizziness and headaches as well as progressive worsening of blindness which has been going on for some time. The patient apparently had some underlying psychiatric issue and was reported to be homeless, suicidal, and was planning to cut himself with a knife. At the time of arrival to the hospital, the initial blood pressure was 169/100, respirations were 18, pulse was 60, O2 saturation 98% on room air, and temperature 97.9 degrees Fahrenheit. Initial 12-lead electrocardiogram was significant for sinus bradycardia with LVH, but no ST and T-wave abnormalities, QT interval was 420 milliseconds. PAST MEDICAL HISTORY: Including hypertension, history of diabetes mellitus, history of blindness, history of cardiac disease. SOCIAL HISTORY: Denies any tobacco, alcohol, illicit drug use. The patient is homeless. ALLERGIES: No known drug allergies. REVIEW OF SYSTEMS: A 12-system review done, essentially negative except what was mentioned in history of present illness. FAMILY HISTORY: No premature coronary artery disease or arrhythmogenic in first-degree relatives. SURGERIES: None. MEDICATIONS: List of medications in the outpatient, atorvastatin 10 mg p.o. nightly, Januvia 25 mg p.o. daily, and some other unknown medications. PHYSICAL EXAMINATION: VITAL SIGNS: Blood pressure at the time of arrival to the emergency department was 169/100, respirations 18, pulse of 60, temperature 97.9 degrees Fahrenheit, and O2 saturation 98% on room air. GENERAL: This is a very unfortunate 72-year-old gentleman, in no apparent respiratory distress. HEENT: Atraumatic and normocephalic. Anicteric. Dense bilateral cataracts. NECK: JVP less than 5 cm. No carotid bruit. Carotid upstrokes 2+ bilaterally. CARDIOVASCULAR: Normal S1, S2. Regular rate and rhythm. No murmurs, gallops, or rubs. PMI is at fourth intercostal space in midclavicular line. LUNGS: Clear to auscultation bilaterally. ABDOMEN: Soft, nontender, and nondistended. No hepatosplenomegaly. Positive bowel sounds. EXTREMITIES: No evidence of edema, clubbing, or cyanosis. IMAGING: Chest x-ray showed no acute cardiopulmonary disease. CT of head showed 6-mm focus of slightly increased attenuation in the central greta could represent a small focus of subacute hemorrhage, small vascular malformation, small mass lesion or could be artifactual. Contrast MRI is recommended. No evidence of intracranial bleed or mass effect. Chronic and age-related changes. A 2D echocardiography was done and showed normal LV systolic function with LVEF of over 60%, borderline LVH, mild mitral regurgitation, grade 1 LV diastolic dysfunction, and RVSP of 15 mmHg. LABORATORY FINDINGS: WBC 4.8, hemoglobin 16.8, hematocrit of 50.4, and platelet count of 272,000. Sodium was 138, potassium 3.9, chloride 103, bicarbonate 28, BUN 10, creatinine 0.9, glucose 94, calcium is 9.3. Troponin I was 0.0. ProBNP is 85. Total cholesterol was 167, triglycerides 69, LDL was 118, HDL of 49. INR was 1.1. ASSESSMENT AND PLAN: The patient is a very unfortunate 72-year-old gentleman, who is seen in Cardiology consultation at the request of Dr. Montgomery. 1. Accelerated hypertension. I would like to start the patient on low-dose calcium-channel shin and if necessary, we will add JYOTI inhibitor. We will continue to follow blood pressure in this admission. A 2D echocardiography had shown normal LV systolic function with LVEF of about 60%. 2. Sinus bradycardia, asymptomatic. No treatment is required. 3. History of diabetes mellitus. The patient will benefit from combination of aspirin and Plavix. 4. Blindness. 5. Dyslipidemia with elevated LDL. I would consider increasing atorvastatin to 40 mg p.o. nightly. I would like to thank Dr. Montgomery for the courtesy of this consultation. Flavio Yanez M.D. DR: So JOB#: [id number] CC:
[2017-09-25 04:00] VITALS: BP 125/71
[2017-09-25 06:30] LABS: BASOPHILS % (AUTO) 1.4 % (0.0-2.0); EOSINOPHILS % (AUTO) 2.6 % (0.0-3.0); HEMATOCRIT 44.5 % (42.0-52.0); HEMOGLOBIN 15.5 G/DL (14.2-18.0); LYMPHOCYTES % (AUTO) 43.9 % (20.0-45.0); MEAN CORPUSCULAR VOLUME 90 FL (80-99); MONOCYTES % (AUTO) 14.2 % (1.0-10.0); PLATELET COUNT 225 K/UL (150-450); RED BLOOD COUNT 4.93 M/UL (4.70-6.10); RED CELL DISTRIBUTION WIDTH 11.1 % (11.6-14.8); WHITE BLOOD COUNT 4.2 K/UL (4.8-10.8)
[2017-09-25] MEDS: NovoLOG Insulin Flexpen SUBQ SCH ×4 (06:30→20:38)
[2017-09-25 06:38] LABS: ANION GAP 9 mmol/L (5-15); BLOOD UREA NITROGEN 13 mg/dL (7-18); CALCIUM 8.9 MG/DL (8.5-10.1); CARBON DIOXIDE 26 MMOL/L (21-32); CHLORIDE 104 MMOL/L (98-107); CREATININE 0.9 MG/DL (0.55-1.30); POTASSIUM 3.7 MMOL/L (3.5-5.1); SODIUM 138 MMOL/L (136-145)
--- NOTE | 2017-09-25 07:01 | General Progress Note ---
Assessment/Plan Problem List: (1) Dizziness ICD Codes: R42 - Dizziness and giddiness SNOMED: 251774946, 921035655 (2) Suicidal ideation ICD Codes: R45.851 - Suicidal ideations SNOMED: 0155715 (3) Cataracts, bilateral ICD Codes: H26.9 - Unspecified cataract SNOMED: 73541024 Qualifiers: Qualified Codes: H26.9 - Unspecified cataract (4) Blindness ICD Codes: H54.7 - Unspecified visual loss SNOMED: 115783428 (5) Headache ICD Codes: R51 - Headache SNOMED: 92397170 Qualifiers: Qualified Codes: R51 - Headache Status: stable, progressing Assessment/Plan ot pt diet pain control neuro psyc f/u cbc bmp am dc plan snf Subjective Constitutional: Reports: weakness Allergies: Coded Allergies: No Known Allergies (Unverified , 09/23/17) All Systems: reviewed and negative except above Subjective calm in bed Objective Last 24 Hour Vital Signs Date Time Temp Pulse Resp B/P (MAP) Pulse Ox O2 Delivery O2 Flow Rate FiO2 09/25/17 04:00 97.1 56 19 125/71 (89) 97 97.1 09/25/17 00:00 97.5 54 19 137/96 (110) 98 97.5 09/25/17 00:00 97.5 54 19 137/96 (110) 98 97.5 09/24/17 22:12 68 139/86 09/24/17 22:11 60 18 Room Air 21 09/24/17 20:25 Room Air 09/24/17 20:00 98.2 65 19 139/68 (91) 99 98.2 09/24/17 17:51 98.5 69 20 129/72 (91) 97 98.5 09/24/17 16:00 98.5 69 20 129/72 (91) 97 98.5 09/24/17 12:00 96.3 63 16 141/80 (100) 98 96.3 09/24/17 09:00 Room Air 09/24/17 08:00 97.7 64 16 147/89 (108) 95 97.7 Intake and Output 09/24/17 09/25/17 19:00 07:00 Intake Total 140 ml 850 ml Output Total 100 ml 650 ml Balance 40 ml 200 ml Intake Oral 140 ml 850 ml Output Urine Total 100 ml 650 ml # Bowel Movements 1 Laboratory Tests 09/25/17 05:47: White Blood Count 4.2L, Red Blood Count 4.93, Hemoglobin 15.5, Hematocrit 44.5, Mean Corpuscular Volume 90, Mean Corpuscular Hemoglobin 31.4H, Mean Corpuscular Hemoglobin Concent 34.8, Red Cell Distribution Width 11.1L, Platelet Count 225, Mean Platelet Volume 7.8, Neutrophils (%) (Auto) 38.0L, Lymphocytes (%) (Auto) 43.9, Monocytes (%) (Auto) 14.2H, Eosinophils (%) (Auto) 2.6, Basophils (%) ( Auto) 1.4, Sodium Level 138, Potassium Level 3.7, Chloride Level 104, Carbon Dioxide Level 26, Anion Gap 9, Blood Urea Nitrogen 13, Creatinine 0.9, Estimat Glomerular Filtration Rate , Glucose Level 91, Calcium Level 8.9 Height (Feet): 5 Height (Inches): 4.00 Weight (Pounds): 145 General Appearance: lethargic EENT: normal ENT inspection Neck: normal alignment Cardiovascular: normal peripheral pulses, normal rate, regular rhythm Respiratory/Chest: chest wall non-tender, lungs clear, normal breath sounds Abdomen: normal bowel sounds, non tender, soft Extremities: normal inspection Edema: no edema noted Arm (L), no edema noted Arm (R), no edema noted Leg (L), no edema noted Leg (R), no edema noted Pedal (L), no edema noted Pedal (R), no edema noted Generalized Neurologic: motor weakness Skin: normal pigmentation, warm/dry Juan Montgomery DO Sep 25, 2017 07:01
[2017-09-25 08:00] VITALS: BP 110/66
[2017-09-25] MEDS: sitaGLIPtin 25mg tab ORAL SCH (08:47)
[2017-09-25] MEDS: Heparin 5000 units/ml inj SUBQ SCH ×2 (08:47→20:39)
[2017-09-25 12:00] VITALS: BP 129/90
[2017-09-25] MEDS ORDERED: Haloperidol 5mg/ml Inj IM PRN ×2 (17:30→17:47)
--- NOTE | 2017-09-25 18:22 | Pulmonology Progress Note ---
Assessment/Plan Problems: (1) unable to care for himself (2) Cataracts, bilateral (3) Diabetes mellitus Assessment/Plan doing better all noted sliding sclae pt/ot evaluation Subjective ROS Limited/Unobtainable: No Constitutional: Reports: no symptoms Respiratory: Reports: no symptoms Allergies: Coded Allergies: No Known Allergies (Unverified , 09/23/17) Objective Last 24 Hour Vital Signs Date Time Temp Pulse Resp B/P (MAP) Pulse Ox O2 Delivery O2 Flow Rate FiO2 09/25/17 12:00 97.0 59 20 129/90 (103) 98 97.0 09/25/17 09:00 Room Air 09/25/17 08:48 63 16 Room Air 21 09/25/17 08:47 63 110/66 09/25/17 08:00 97.0 63 16 110/66 (81) 94 97.0 09/25/17 04:00 97.1 56 19 125/71 (89) 97 97.1 09/25/17 00:00 97.5 54 19 137/96 (110) 98 97.5 09/25/17 00:00 97.5 54 19 137/96 (110) 98 97.5 09/24/17 22:12 68 139/86 09/24/17 22:11 60 18 Room Air 21 09/24/17 20:25 Room Air 09/24/17 20:00 98.2 65 19 139/68 (91) 99 98.2 Intake and Output 09/24/17 09/25/17 19:00 07:00 Intake Total 140 ml 850 ml Output Total 100 ml 650 ml Balance 40 ml 200 ml Intake Oral 140 ml 850 ml Output Urine Total 100 ml 650 ml # Bowel Movements 1 Objective General Appearance: WD/WN Lines, tubes and drains: peripheral, central line HEENT: normocephalic, atraumatic Neck: non-tender, normal alignment Respiratory/Chest: chest wall non-tender, lungs clear Breasts: no masses Cardiovascular/Chest: normal peripheral pulses Abdomen: normal bowel sounds Genitourinary/Rectal: normal genital exam, normal prostate exam Extremities: normal range of motion Microbiology Date/Time Source Procedure Growth Status 09/23/17 20:55 Rectum Received 09/23/17 19:25 Rectum VRE Culture - Final NO VANCOMYCIN RESISTANT ENTEROCOCCUS ... Complete Laboratory Tests 09/25/17 05:47: White Blood Count 4.2L, Red Blood Count 4.93, Hemoglobin 15.5, Hematocrit 44.5, Mean Corpuscular Volume 90, Mean Corpuscular Hemoglobin 31.4H, Mean Corpuscular Hemoglobin Concent 34.8, Red Cell Distribution Width 11.1L, Platelet Count 225, Mean Platelet Volume 7.8, Neutrophils (%) (Auto) 38.0L, Lymphocytes (%) (Auto) 43.9, Monocytes (%) (Auto) 14.2H, Eosinophils (%) (Auto) 2.6, Basophils (%) ( Auto) 1.4, Sodium Level 138, Potassium Level 3.7, Chloride Level 104, Carbon Dioxide Level 26, Anion Gap 9, Blood Urea Nitrogen 13, Creatinine 0.9, Estimat Glomerular Filtration Rate , Glucose Level 91, Calcium Level 8.9 Current Medications Medications (Trade) Dose Ordered Sig/Cornelius Route PRN Reason Start Time Stop Time Status Last Admin Dose Admin Acetaminophen (Tylenol) 650 mg Q4H PRN ORAL fever (temp>100.5F) 09/23/17 18:00 10/23/17 17:59 Al Hydroxide/Mg Hydroxide (Mylanta II) 30 ml Q6H PRN ORAL dyspepsia 09/23/17 18:00 10/23/17 17:59 Albuterol/ Ipratropium (Albuterol/ Ipratropium) 3 ml Q4H PRN HHN Shortness of Breath 09/23/17 18:00 09/28/17 17:59 Amlodipine Besylate (Norvasc) 2.5 mg DAILY ORAL 09/24/17 21:00 10/24/17 20:59 09/24/17 22:12 Atorvastatin Calcium (Lipitor) 40 mg BEDTIME ORAL 09/24/17 21:00 10/24/17 20:59 09/24/17 22:13 Clonidine HCl (Catapres Tab) 0.1 mg Q4H PRN ORAL For High Blood Pressure 09/23/17 18:00 10/23/17 17:59 Dextrose (Dextrose 50%) 25 ml STAT PRN IV Hypoglycemia 09/23/17 18:00 10/23/17 17:59 Dextrose (Dextrose 50%) 50 ml STAT PRN IV Hypoglycemia 09/23/17 18:00 10/23/17 17:59 Gadobutrol (Gadavist) 7.5 mmol NOW PRN IV Radiology Procedure 09/23/17 11:00 09/27/17 10:52 Haloperidol Lactate (Haldol) 5 mg Q4H PRN IM Agitation 09/25/17 17:47 10/25/17 17:29 Heparin Sodium (Porcine) (Heparin 5000 units/ml) 5,000 units EVERY 12 HOURS SUBQ 09/23/17 21:00 10/23/17 20:59 09/25/17 08:47 Insulin Aspart (NovoLOG) BEFORE MEALS AND HS SUBQ 09/23/17 21:00 10/23/17 20:59 09/24/17 16:55 Lorazepam (Ativan 2mg/ml 1ml) 0.5 mg Q4H PRN IV For Anxiety 09/23/17 18:00 09/30/17 17:59 Morphine Sulfate (Morphine Sulfate) 1 mg Q4H PRN IVP For Pain 7-09/23/17 18:00 09/30/17 17:59 Nitroglycerin (Ntg) 0.4 mg Q5M X 3 DOSES PRN SL Prn Chest Pain 09/23/17 18:00 10/23/17 17:59 Ondansetron HCl (Zofran) 4 mg Q6H PRN IVP Nausea & Vomiting 09/23/17 18:00 10/23/17 17:59 Polyethylene Glycol (Miralax) 17 gm HSPRN PRN ORAL Constipation 09/23/17 18:00 10/23/17 17:59 Quetiapine Fumarate (SEROquel) 25 mg Q4H PRN ORAL Agitation 09/25/17 17:30 10/25/17 17:29 Sitagliptin Phosphate (Januvia) 25 mg DAILY ORAL 09/24/17 09:00 10/24/17 08:59 09/25/17 08:47 Temazepam (Restoril) 15 mg HSPRN PRN ORAL Insomnia 09/23/17 18:00 09/30/17 17:59 Jesus Pichardo MD Sep 25, 2017 18:21
--- NOTE | 2017-09-25 18:27 | Cardiology Progress Note ---
Assessment/Plan Assessment/Plan 1. Accelerated hypertension. BP well controlled with amlodipine 2.5 daily. 2D echocardiography had shown normal LV systolic function with LVEF of about 60%. 2. Sinus bradycardia, asymptomatic. No treatment is required. 3. History of diabetes mellitus. Start ASA 81 daily. 4. Blindness. 5. Dyslipidemia with elevated LDL, continue atorvastatin. Subjective Subjective No cardiac events. Denies chest pain or SOB. Objective Last 24 Hour Vital Signs Date Time Temp Pulse Resp B/P (MAP) Pulse Ox O2 Delivery O2 Flow Rate FiO2 09/25/17 12:00 97.0 59 20 129/90 (103) 98 97.0 09/25/17 09:00 Room Air 09/25/17 08:48 63 16 Room Air 21 09/25/17 08:47 63 110/66 09/25/17 08:00 97.0 63 16 110/66 (81) 94 97.0 09/25/17 04:00 97.1 56 19 125/71 (89) 97 97.1 09/25/17 00:00 97.5 54 19 137/96 (110) 98 97.5 09/25/17 00:00 97.5 54 19 137/96 (110) 98 97.5 09/24/17 22:12 68 139/86 09/24/17 22:11 60 18 Room Air 21 09/24/17 20:25 Room Air 09/24/17 20:00 98.2 65 19 139/68 (91) 99 98.2 Intake and Output 09/24/17 09/25/17 19:00 07:00 Intake Total 140 ml 850 ml Output Total 100 ml 650 ml Balance 40 ml 200 ml Intake Oral 140 ml 850 ml Output Urine Total 100 ml 650 ml # Bowel Movements 1 2D Echo: EF 60%, Mild MR, Grade I LVDD, RVSP 15 mmHg Laboratory Tests Test 09/25/17 05:47 White Blood Count 4.2 K/UL (4.8-10.8) L Red Blood Count 4.93 M/UL (4.70-6.10) Hemoglobin 15.5 G/DL (14.2-18.0) Hematocrit 44.5 % (42.0-52.0) Mean Corpuscular Volume 90 FL (80-99) Mean Corpuscular Hemoglobin 31.4 PG (27.0-31.0) H Mean Corpuscular Hemoglobin Concent 34.8 G/DL (32.0-36.0) Red Cell Distribution Width 11.1 % (11.6-14.8) L Platelet Count 225 K/UL (150-450) Mean Platelet Volume 7.8 FL (6.5-10.1) Neutrophils (%) (Auto) 38.0 % (45.0-75.0) L Lymphocytes (%) (Auto) 43.9 % (20.0-45.0) Monocytes (%) (Auto) 14.2 % (1.0-10.0) H Eosinophils (%) (Auto) 2.6 % (0.0-3.0) Basophils (%) (Auto) 1.4 % (0.0-2.0) Sodium Level 138 MMOL/L (136-145) Potassium Level 3.7 MMOL/L (3.5-5.1) Chloride Level 104 MMOL/L (98-107) Carbon Dioxide Level 26 MMOL/L (21-32) Anion Gap 9 mmol/L (5-15) Blood Urea Nitrogen 13 mg/dL (7-18) Creatinine 0.9 MG/DL (0.55-1.30) Estimat Glomerular Filtration Rate mL/min (>60) Glucose Level 91 MG/DL (74-106) Calcium Level 8.9 MG/DL (8.5-10.1) Microbiology Date/Time Source Procedure Growth Status 09/23/17 20:55 Rectum Received 09/23/17 19:25 Rectum VRE Culture - Final NO VANCOMYCIN RESISTANT ENTEROCOCCUS ... Complete Objective HEENT: Atraumatic and normocephalic. Anicteric. Dense bilateral cataracts. NECK: JVP less than 5 cm. No carotid bruit. Carotid upstrokes 2+ bilaterally. CARDIOVASCULAR: Normal S1, S2. Regular rate and rhythm. No murmurs, gallops, or rubs. PMI is at fourth intercostal space in midclavicular line. LUNGS: Clear to auscultation bilaterally. ABDOMEN: Soft, nontender, and nondistended. No hepatosplenomegaly. Positive bowel sounds. EXTREMITIES: No evidence of edema, clubbing, or cyanosis. Flavio Yanez MD Sep 25, 2017 18:27
[2017-09-25 20:00] VITALS: BP 142/93
[2017-09-26 04:00] VITALS: BP 136/78
[2017-09-26] MEDS: NovoLOG Insulin Flexpen SUBQ SCH ×4 (06:23→20:27)
--- NOTE | 2017-09-26 06:33 | General Progress Note ---
Assessment/Plan Problem List: (1) Dizziness ICD Codes: R42 - Dizziness and giddiness SNOMED: 984983888, 205650270 (2) Suicidal ideation ICD Codes: R45.851 - Suicidal ideations SNOMED: 2032781 (3) Cataracts, bilateral ICD Codes: H26.9 - Unspecified cataract SNOMED: 25556796 Qualifiers: Qualified Codes: H26.9 - Unspecified cataract (4) Blindness ICD Codes: H54.7 - Unspecified visual loss SNOMED: 646604966 (5) Headache ICD Codes: R51 - Headache SNOMED: 38634580 Qualifiers: Qualified Codes: R51 - Headache Status: stable, progressing Assessment/Plan ot pt diet pain control neuro psyc f/u cbc bmp am dc plan snf Subjective Constitutional: Reports: weakness Allergies: Coded Allergies: No Known Allergies (Unverified , 09/23/17) All Systems: reviewed and negative except above Subjective calm in bed sleepy Objective Last 24 Hour Vital Signs Date Time Temp Pulse Resp B/P (MAP) Pulse Ox O2 Delivery O2 Flow Rate FiO2 09/26/17 04:00 97.6 72 20 136/78 (97) 97 97.6 09/25/17 21:00 Room Air 09/25/17 20:00 97.5 65 20 142/93 (109) 97 97.5 09/25/17 19:01 61 18 Room Air 21 09/25/17 12:00 97.0 59 20 129/90 (103) 98 97.0 09/25/17 09:00 Room Air 09/25/17 08:48 63 16 Room Air 21 09/25/17 08:47 63 110/66 09/25/17 08:00 97.0 63 16 110/66 (81) 94 97.0 Intake and Output 09/25/17 09/26/17 19:00 07:00 Intake Total 480 ml 120 ml Output Total 800 ml 750 ml Balance -320 ml -630 ml Intake Oral 480 ml 120 ml Output Urine Total 800 ml 750 ml # Voids 2 Height (Feet): 5 Height (Inches): 4.00 Weight (Pounds): 145 General Appearance: lethargic EENT: normal ENT inspection Neck: normal alignment Cardiovascular: normal peripheral pulses, normal rate, regular rhythm Respiratory/Chest: chest wall non-tender, lungs clear, normal breath sounds Abdomen: normal bowel sounds, non tender, soft Extremities: normal inspection Edema: no edema noted Arm (L), no edema noted Arm (R), no edema noted Leg (L), no edema noted Leg (R), no edema noted Pedal (L), no edema noted Pedal (R), no edema noted Generalized Neurologic: motor weakness Skin: normal pigmentation, warm/dry Juan Montgomery DO Sep 26, 2017 06:32
[2017-09-26] MEDS: Aspirin EC 81mg tab ORAL SCH (08:48)
[2017-09-26] MEDS: sitaGLIPtin 25mg tab ORAL SCH (08:49)
[2017-09-26] MEDS: Heparin 5000 units/ml inj SUBQ SCH ×2 (08:49→20:26)
--- NOTE | 2017-09-26 12:23 | Pulmonology Progress Note ---
Assessment/Plan Problems: (1) unable to care for himself (2) Cataracts, bilateral (3) Diabetes mellitus Assessment/Plan doing better all noted sliding sclae pt/ot evaluation dvt propylaxis Subjective ROS Limited/Unobtainable: No Allergies: Coded Allergies: No Known Allergies (Unverified , 09/23/17) Objective Last 24 Hour Vital Signs Date Time Temp Pulse Resp B/P (MAP) Pulse Ox O2 Delivery O2 Flow Rate FiO2 09/26/17 09:00 Room Air 09/26/17 04:00 97.6 72 20 136/78 (97) 97 97.6 09/25/17 21:00 Room Air 09/25/17 20:00 97.5 65 20 142/93 (109) 97 97.5 09/25/17 19:01 61 18 Room Air 21 Intake and Output 09/25/17 09/26/17 19:00 07:00 Intake Total 480 ml 120 ml Output Total 800 ml 750 ml Balance -320 ml -630 ml Intake Oral 480 ml 120 ml Output Urine Total 800 ml 750 ml # Voids 2 Objective General Appearance: WD/WN Lines, tubes and drains: peripheral, central line HEENT: normocephalic, atraumatic Neck: non-tender, normal alignment Respiratory/Chest: chest wall non-tender, lungs clear Breasts: no masses Cardiovascular/Chest: normal peripheral pulses Abdomen: normal bowel sounds Genitourinary/Rectal: normal genital exam, normal prostate exam Extremities: normal range of motion Microbiology Date/Time Source Procedure Growth Status 09/23/17 20:55 Nasal Nares MRSA Culture - Final NO METHICILLIN RESISTANT STAPH AUREUS... Complete 09/23/17 20:55 Rectum - Final NO CARBAPENEM-RESISTANT ENTEROBACTERI... Complete 09/23/17 19:25 Rectum VRE Culture - Final NO VANCOMYCIN RESISTANT ENTEROCOCCUS ... Complete Current Medications Medications (Trade) Dose Ordered Sig/Cornelius Route PRN Reason Start Time Stop Time Status Last Admin Dose Admin Acetaminophen (Tylenol) 650 mg Q4H PRN ORAL fever (temp>100.5F) 09/23/17 18:00 10/23/17 17:59 Al Hydroxide/Mg Hydroxide (Mylanta II) 30 ml Q6H PRN ORAL dyspepsia 09/23/17 18:00 10/23/17 17:59 Albuterol/ Ipratropium (Albuterol/ Ipratropium) 3 ml Q4H PRN HHN Shortness of Breath 09/23/17 18:00 09/28/17 17:59 Amlodipine Besylate (Norvasc) 2.5 mg DAILY ORAL 09/24/17 21:00 10/24/17 20:59 09/24/17 22:12 Aspirin (Ecotrin) 81 mg DAILY ORAL 09/26/17 09:00 10/26/17 08:59 Atorvastatin Calcium (Lipitor) 40 mg BEDTIME ORAL 09/24/17 21:00 10/24/17 20:59 09/25/17 20:37 Clonidine HCl (Catapres Tab) 0.1 mg Q4H PRN ORAL For High Blood Pressure 09/23/17 18:00 10/23/17 17:59 Dextrose (Dextrose 50%) 25 ml STAT PRN IV Hypoglycemia 09/23/17 18:00 10/23/17 17:59 Dextrose (Dextrose 50%) 50 ml STAT PRN IV Hypoglycemia 09/23/17 18:00 10/23/17 17:59 Gadobutrol (Gadavist) 7.5 mmol NOW PRN IV Radiology Procedure 09/23/17 11:00 09/27/17 10:52 Haloperidol Lactate (Haldol) 5 mg Q4H PRN IM Agitation 09/25/17 17:47 10/25/17 17:29 Heparin Sodium (Porcine) (Heparin 5000 units/ml) 5,000 units EVERY 12 HOURS SUBQ 09/23/17 21:00 10/23/17 20:59 09/25/17 20:39 Insulin Aspart (NovoLOG) BEFORE MEALS AND HS SUBQ 09/23/17 21:00 10/23/17 20:59 09/25/17 20:38 Lorazepam (Ativan 2mg/ml 1ml) 0.5 mg Q4H PRN IV For Anxiety 09/23/17 18:00 09/30/17 17:59 Morphine Sulfate (Morphine Sulfate) 1 mg Q4H PRN IVP For Pain 7-09/23/17 18:00 09/30/17 17:59 Nitroglycerin (Ntg) 0.4 mg Q5M X 3 DOSES PRN SL Prn Chest Pain 09/23/17 18:00 10/23/17 17:59 Ondansetron HCl (Zofran) 4 mg Q6H PRN IVP Nausea & Vomiting 09/23/17 18:00 10/23/17 17:59 Polyethylene Glycol (Miralax) 17 gm HSPRN PRN ORAL Constipation 09/23/17 18:00 10/23/17 17:59 Quetiapine Fumarate (SEROquel) 25 mg Q4H PRN ORAL Agitation 09/25/17 17:30 10/25/17 17:29 Sitagliptin Phosphate (Januvia) 25 mg DAILY ORAL 09/24/17 09:00 10/24/17 08:59 09/25/17 08:47 Temazepam (Restoril) 15 mg HSPRN PRN ORAL Insomnia 09/23/17 18:00 09/30/17 17:59 Jesus Pichardo MD Sep 26, 2017 12:23
[2017-09-26 17:10] VITALS: BP 170/118
[2017-09-26 20:00] VITALS: BP 115/66
--- NOTE | 2017-09-26 23:35 | Cardiology Progress Note ---
Assessment/Plan Assessment/Plan 1. Accelerated hypertension, increase amlodipine to 5mg daily. 2D echocardiography had shown normal LV systolic function with LVEF of about 60%. 2. Sinus bradycardia, asymptomatic. No treatment is required. 3. History of diabetes mellitu, continue ASA 81 daily. 4. Blindness. 5. Dyslipidemia with elevated LDL, continue atorvastatin. Subjective Subjective No cardiac events. Denies chest pain or SOB. Objective Last 24 Hour Vital Signs Date Time Temp Pulse Resp B/P (MAP) Pulse Ox O2 Delivery O2 Flow Rate FiO2 09/26/17 21:00 Room Air 09/26/17 20:00 97.6 72 19 115/66 (82) 97 97.6 09/26/17 19:55 73 18 Room Air 21 09/26/17 19:20 170/118 09/26/17 17:10 98.7 75 18 170/118 (135) 98 98.7 09/26/17 09:00 Room Air 09/26/17 04:00 97.6 72 20 136/78 (97) 97 97.6 Intake and Output 09/25/17 09/26/17 19:00 07:00 Intake Total 480 ml 120 ml Output Total 800 ml 750 ml Balance -320 ml -630 ml Intake Oral 480 ml 120 ml Output Urine Total 800 ml 750 ml # Voids 2 2D Echo: EF 60%, Mild MR, Grade I LVDD, RVSP 15 mmHg Objective HEENT: Atraumatic and normocephalic. Anicteric. Dense bilateral cataracts. NECK: JVP less than 5 cm. No carotid bruit. Carotid upstrokes 2+ bilaterally. CARDIOVASCULAR: Normal S1, S2. Regular rate and rhythm. No murmurs, gallops, or rubs. PMI is at fourth intercostal space in midclavicular line. LUNGS: Clear to auscultation bilaterally. ABDOMEN: Soft, nontender, and nondistended. No hepatosplenomegaly. Positive bowel sounds. EXTREMITIES: No evidence of edema, clubbing, or cyanosis. Flavio Yanez MD Sep 26, 2017 23:35
[2017-09-27] VITALS (7 sets, daily range): BP systolic 102–131; BP diastolic 66–81
[2017-09-27] MEDS: NovoLOG Insulin Flexpen SUBQ SCH ×4 (06:10→20:14)
[2017-09-27 08:08] LABS: BASOPHILS % (AUTO) 1.3 % (0.0-2.0); EOSINOPHILS % (AUTO) 2.2 % (0.0-3.0); HEMOGLOBIN 16.3 G/DL (14.2-18.0); LYMPHOCYTES % (AUTO) 40.2 % (20.0-45.0); MEAN CORPUSCULAR VOLUME 91 FL (80-99); MONOCYTES % (AUTO) 13.5 % (1.0-10.0); NEUTROPHILS % (AUTO) 42.8 % (45.0-75.0); PLATELET COUNT 244 K/UL (150-450); RED BLOOD COUNT 5.28 M/UL (4.70-6.10); RED CELL DISTRIBUTION WIDTH 11.5 % (11.6-14.8); WHITE BLOOD COUNT 5.1 K/UL (4.8-10.8)
[2017-09-27 08:57] LABS: ANION GAP 8 mmol/L (5-15); BLOOD UREA NITROGEN 13 mg/dL (7-18); CALCIUM 9.3 MG/DL (8.5-10.1); CARBON DIOXIDE 28 MMOL/L (21-32); CHLORIDE 101 MMOL/L (98-107); CREATININE 0.9 MG/DL (0.55-1.30); SODIUM 137 MMOL/L (136-145)
[2017-09-27] MEDS: Aspirin EC 81mg tab ORAL SCH (09:04)
[2017-09-27] MEDS: sitaGLIPtin 25mg tab ORAL SCH (09:04)
[2017-09-27] MEDS: Heparin 5000 units/ml inj SUBQ SCH ×2 (09:05→20:10)
--- NOTE | 2017-09-27 09:21 | Consultation ---
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 He was able to see forms out of his right eye in the past but now the only thing he sees is light. ON EXAM: Oriented to self and September 2017. M- 3/3-0, 2/3-1 & 3 Trump and Obama only. Math and VSF poor. Pupils R= 3 constricts to 2.5 with light. L=3 does not react to light. G 5/5 power Globally diminished DTRs IMPRESSION: Loss of vision in the right eye 10 days [employer]. Can still see light in that eye. 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 MRI of brain done on 09/22/17 revealed tiny lacunar infarcts in the bilateral cerebral peduncles. A tiny hyperintense focus was seen to the right of the midline in the greta. No abnormal areas of restricted diffusion to suggest acute infarction. No acute hemorrhage or edema. There was periventricular and deep white matter hyperintensity consistent with chronic ischemic changes. REC: BP/BS/LIPID control. Ophthalmologic evaluation. Keep physically active. Edi Cleaning M.D., M.S.P.H. EDI CLE[employer] Sep 27, 2017 09:21
--- NOTE | 2017-09-27 13:39 | Pulmonology Progress Note ---
Assessment/Plan Problems: (1) unable to care for himself (2) Cataracts, bilateral (3) Diabetes mellitus Assessment/Plan doing better all noted sliding sclae pt/ot evaluation dvt propylaxis dc planning Subjective ROS Limited/Unobtainable: No Constitutional: Reports: no symptoms Respiratory: Reports: no symptoms Allergies: Coded Allergies: No Known Allergies (Unverified , 09/23/17) Objective Last 24 Hour Vital Signs Date Time Temp Pulse Resp B/P (MAP) Pulse Ox O2 Delivery O2 Flow Rate FiO2 09/27/17 11:47 97.8 67 17 113/73 (86) 98 97.8 09/27/17 09:04 67 131/81 09/27/17 09:00 Room Air 09/27/17 08:00 97.8 67 17 131/81 (98) 98 97.8 09/27/17 04:00 97.3 76 19 112/66 (81) 99 97.3 09/27/17 00:00 97.2 68 19 128/76 (93) 98 97.2 09/26/17 21:00 Room Air 09/26/17 20:00 97.6 72 19 115/66 (82) 97 97.6 09/26/17 19:55 73 18 Room Air 21 09/26/17 19:20 170/118 09/26/17 17:10 98.7 75 18 170/118 (135) 98 98.7 Intake and Output 09/26/17 09/27/17 19:00 07:00 Intake Total 400 ml Output Total 700 ml Balance 400 ml -700 ml Other 400 ml Output Urine Total 700 ml # Voids 3 Objective General Appearance: WD/WN Lines, tubes and drains: peripheral, central line HEENT: normocephalic, atraumatic Neck: non-tender, normal alignment Respiratory/Chest: chest wall non-tender, lungs clear Breasts: no masses Cardiovascular/Chest: normal peripheral pulses Abdomen: normal bowel sounds Genitourinary/Rectal: normal genital exam, normal prostate exam Extremities: normal range of motion Laboratory Tests 09/27/17 07:00: White Blood Count 5.1, Red Blood Count 5.28, Hemoglobin 16.3, Hematocrit 48.0, Mean Corpuscular Volume 91, Mean Corpuscular Hemoglobin 30.8, Mean Corpuscular Hemoglobin Concent 33.9, Red Cell Distribution Width 11.5L, Platelet Count 244, Mean Platelet Volume 8.4, Neutrophils (%) (Auto) 42.8L, Lymphocytes (%) (Auto) 40.2, Monocytes (%) (Auto) 13.5H, Eosinophils (%) (Auto) 2.2, Basophils (%) ( Auto) 1.3, Sodium Level 137, Potassium Level 4.0, Chloride Level 101, Carbon Dioxide Level 28, Anion Gap 8, Blood Urea Nitrogen 13, Creatinine 0.9, Estimat Glomerular Filtration Rate , Glucose Level 79, Calcium Level 9.3 Current Medications Medications (Trade) Dose Ordered Sig/Cornelius Route PRN Reason Start Time Stop Time Status Last Admin Dose Admin Acetaminophen (Tylenol) 650 mg Q4H PRN ORAL fever (temp>100.5F) 09/23/17 18:00 10/23/17 17:59 Al Hydroxide/Mg Hydroxide (Mylanta II) 30 ml Q6H PRN ORAL dyspepsia 09/23/17 18:00 10/23/17 17:59 Albuterol/ Ipratropium (Albuterol/ Ipratropium) 3 ml Q4H PRN HHN Shortness of Breath 09/23/17 18:00 09/28/17 17:59 Amlodipine Besylate (Norvasc) 2.5 mg BID ORAL 09/27/17 09:00 10/27/17 08:59 09/27/17 09:04 Aspirin (Ecotrin) 81 mg DAILY ORAL 09/26/17 09:00 10/26/17 08:59 09/27/17 09:04 Atorvastatin Calcium (Lipitor) 40 mg BEDTIME ORAL 09/24/17 21:00 10/24/17 20:59 09/26/17 20:24 Clonidine HCl (Catapres Tab) 0.1 mg Q4H PRN ORAL For High Blood Pressure 09/23/17 18:00 10/23/17 17:59 09/26/17 19:20 Dextrose (Dextrose 50%) 25 ml STAT PRN IV Hypoglycemia 09/23/17 18:00 10/23/17 17:59 Dextrose (Dextrose 50%) 50 ml STAT PRN IV Hypoglycemia 09/23/17 18:00 10/23/17 17:59 Haloperidol Lactate (Haldol) 5 mg Q4H PRN IM Agitation 09/25/17 17:47 10/25/17 17:29 Heparin Sodium (Porcine) (Heparin 5000 units/ml) 5,000 units EVERY 12 HOURS SUBQ 09/23/17 21:00 10/23/17 20:59 09/27/17 09:05 Insulin Aspart (NovoLOG) BEFORE MEALS AND HS SUBQ 09/23/17 21:00 10/23/17 20:59 09/26/17 20:27 Lorazepam (Ativan 2mg/ml 1ml) 0.5 mg Q4H PRN IV For Anxiety 09/23/17 18:00 09/30/17 17:59 Morphine Sulfate (Morphine Sulfate) 1 mg Q4H PRN IVP For Pain 7-09/23/17 18:00 09/30/17 17:59 Nitroglycerin (Ntg) 0.4 mg Q5M X 3 DOSES PRN SL Prn Chest Pain 09/23/17 18:00 10/23/17 17:59 Ondansetron HCl (Zofran) 4 mg Q6H PRN IVP Nausea & Vomiting 09/23/17 18:00 10/23/17 17:59 Polyethylene Glycol (Miralax) 17 gm HSPRN PRN ORAL Constipation 09/23/17 18:00 10/23/17 17:59 Quetiapine Fumarate (SEROquel) 25 mg Q4H PRN ORAL Agitation 09/25/17 17:30 10/25/17 17:29 Sitagliptin Phosphate (Januvia) 25 mg DAILY ORAL 09/24/17 09:00 10/24/17 08:59 09/27/17 09:04 Temazepam (Restoril) 15 mg HSPRN PRN ORAL Insomnia 09/26/17 23:45 10/03/17 23:44 Jesus Pichardo MD Sep 27, 2017 13:39
--- NOTE | 2017-09-27 13:46 | General Progress Note ---
Assessment/Plan Problem List: (1) Dizziness ICD Codes: R42 - Dizziness and giddiness SNOMED: 481387201, 725635649 (2) Suicidal ideation ICD Codes: R45.851 - Suicidal ideations SNOMED: 6713120 (3) Cataracts, bilateral ICD Codes: H26.9 - Unspecified cataract SNOMED: 05048430 Qualifiers: Qualified Codes: H26.9 - Unspecified cataract (4) Blindness ICD Codes: H54.7 - Unspecified visual loss SNOMED: 500414808 (5) Headache ICD Codes: R51 - Headache SNOMED: 97835756 Qualifiers: Qualified Codes: R51 - Headache Status: unchanged Assessment/Plan ot pt diet pain control neuro psyc f/u cbc bmp am dc plan snf vs psyc transfer Subjective Allergies: Coded Allergies: No Known Allergies (Unverified , 09/23/17) All Systems: reviewed and negative except above Subjective calm in bed sleepy Objective Last 24 Hour Vital Signs Date Time Temp Pulse Resp B/P (MAP) Pulse Ox O2 Delivery O2 Flow Rate FiO2 09/27/17 11:47 97.8 67 17 113/73 (86) 98 97.8 09/27/17 09:04 67 131/81 09/27/17 09:00 Room Air 09/27/17 08:00 97.8 67 17 131/81 (98) 98 97.8 09/27/17 04:00 97.3 76 19 112/66 (81) 99 97.3 09/27/17 00:00 97.2 68 19 128/76 (93) 98 97.2 09/26/17 21:00 Room Air 09/26/17 20:00 97.6 72 19 115/66 (82) 97 97.6 09/26/17 19:55 73 18 Room Air 21 09/26/17 19:20 170/118 09/26/17 17:10 98.7 75 18 170/118 (135) 98 98.7 Intake and Output 09/26/17 09/27/17 19:00 07:00 Intake Total 400 ml Output Total 700 ml Balance 400 ml -700 ml Other 400 ml Output Urine Total 700 ml # Voids 3 Laboratory Tests 09/27/17 07:00: White Blood Count 5.1, Red Blood Count 5.28, Hemoglobin 16.3, Hematocrit 48.0, Mean Corpuscular Volume 91, Mean Corpuscular Hemoglobin 30.8, Mean Corpuscular Hemoglobin Concent 33.9, Red Cell Distribution Width 11.5L, Platelet Count 244, Mean Platelet Volume 8.4, Neutrophils (%) (Auto) 42.8L, Lymphocytes (%) (Auto) 40.2, Monocytes (%) (Auto) 13.5H, Eosinophils (%) (Auto) 2.2, Basophils (%) ( Auto) 1.3, Sodium Level 137, Potassium Level 4.0, Chloride Level 101, Carbon Dioxide Level 28, Anion Gap 8, Blood Urea Nitrogen 13, Creatinine 0.9, Estimat Glomerular Filtration Rate , Glucose Level 79, Calcium Level 9.3 Height (Feet): 5 Height (Inches): 4.00 Weight (Pounds): 145 General Appearance: lethargic EENT: normal ENT inspection Neck: normal alignment Cardiovascular: normal peripheral pulses, normal rate, regular rhythm Respiratory/Chest: chest wall non-tender, lungs clear, normal breath sounds Abdomen: normal bowel sounds, non tender, soft Extremities: normal inspection Edema: no edema noted Arm (L), no edema noted Arm (R), no edema noted Leg (L), no edema noted Leg (R), no edema noted Pedal (L), no edema noted Pedal (R), no edema noted Generalized Neurologic: motor weakness Skin: normal pigmentation, warm/dry Juan Montgomery DO Sep 27, 2017 13:46
--- NOTE | 2017-09-27 16:00 | Consultation ---
DATE OF CONSULTATION: 09/27/2017 NEUROLOGY CONSULTATION CONSULTING PHYSICIAN: Shawn Cleaning M.D. REQUESTING PHYSICIAN: Juan Montgomery D.O. HISTORY: Mr. Vamsi Galeano is a 72-year-old, right-handed, gentleman, who does have a past history of hypertension, diabetes mellitus, dyslipidemia, loss of vision in the left eye numerous years ago due to reasons that are unknown to him and poor vision in the right eye for a long time, who approximately 10 days prior to admission lost his vision in the right eye. He states that he was able to see shadows out of his right eye in the past, but approximately 10 days ago he stopped seeing the shadows and now the only thing he sees out of that eye is light. He denies any associated weakness on one side or the other, numbness on one side or the other, problems with speech, problems with language, problems with vision, problems with swallowing, problems with chewing or other neurological symptoms. When he was admitted he was complaining of being depressed and as a result of that, was admitted. This consultation was requested to evaluate the patient for his visual problem. PAST MEDICAL HISTORY: Significant for high blood pressure, diabetes mellitus, dyslipidemia, and poor vision for numerous years. FAMILY HISTORY: Nothing significant as per the patient. PERSONAL HISTORY: Home: [place] the streets. 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 Habits: He denies use of alcohol, tobacco, or illicit drugs at this point in time. PRESENT MEDICATIONS: Include amlodipine, temazepam, aspirin, Haldol, Seroquel, atorvastatin, Januvia, heparin for DVT prophylaxis, insulin, DuoNeb inhaler, Tylenol p.r.n., morphine p.r.n., MiraLAX p.r.n., Zofran p.r.n., Ativan p.r.n., Mylanta p.r.n., nitroglycerin p.r.n., and clonidine p.r.n. PHYSICAL EXAMINATION: GENERAL: He is a well-developed, well-nourished, pleasant gentleman, lying in bed, in no acute distress. VITAL SIGNS: Pulse 67/minute, blood pressure 131/81 mmHg, respirations 17/minute, and temperature 97.8 degrees Fahrenheit. HEAD: Normocephalic and atraumatic. EENT: Examination, benign NECK: No neck rigidity was observed. NEUROLOGIC EXAMINATION: MENTAL STATUS EXAMINATION: He was awake and alert. He was oriented to self and hospital. He did not know the name of the hospital. He knew it was September 2017, but did not know the date. He was able to recall 3/3 words immediately, but could only remember 2/3 words in 1 minute and 3 minutes. He was able to remember presidents, Trump and Obama, but could not remember presidents prior to that. His mathematical skills were impaired. His visuospatial function was also impaired. SPEECH: He had no dysarthria. LANGUAGE: Could not be tested adequately because of his poor educational level. CRANIAL NERVE EXAMINATION: II: He was able to discern light in the right eye, but not in the left eye. III, IV, AND : The right pupil was 3 mm and constricted to 2.5 mm with light. The left pupil was 3 mm and did not react to light. The external ocular movements were full when the patient was told to move his eyes to either side, up and down. V: He had normal facial sensations and the temporales, masseters, and pterygoids functioned normally. VII: He had normal facial expressions, and no facial asymmetry. VIII: He was able to hear well and had no nystagmus, IX: The palate moved symmetrically on phonation. X: He had no hoarseness of voice. XI: The sternocleidomastoids and trapezii functioned normally. XII: The tongue was in the midline without any fasciculations or atrophy. MOTOR SYSTEM: The tone was normal in all four extremities. Examination of muscle mass revealed no focal wasting. Examination of power revealed G 5/5 power and all muscle groups tested. SENSORY EXAMINATION: He had intact sensations to pinprick, light touch, and graphesthesia. COORDINATION: He performed well on [id number] and tbvz-td-hote testing. REFLEXES: Trace+ and bilaterally symmetrical at the biceps, triceps, brachioradialis, and knees. 0 at both ankles. The plantar responses were flexor bilaterally. STANCE & GAIT: Could not be tested because he did not want to get up. DIAGNOSTIC IMPRESSION: 1. Mr. 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 2. On neurological examination, at this time, he is disoriented to the name of the hospital and the exact date. He does have problems with recent and remote memory, visuospatial function, and higher cognitive function. The right pupil constricts to light whereas the left does not. In addition, all he is able to see is light in his right eye. His motor power is good. His sensory function is preserved. His deep tendon reflexes are globally diminished. 3. His latest laboratory data revealed a relatively normal CBC, relatively normal chemistry panel, normal TSH, and normal urinalysis. 4. The MRI scan of the brain performed on 09/22/2017 revealed tiny lacunar infarcts in the bilateral cerebral peduncles, a tiny infarct in the greta right of the midline and in addition, periventricular deep white matter changes consistent with chronic ischemic disease. However, no acute pathology was seen. 5. 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 RECOMMENDATIONS: 1. Agree with management thus far. 2. Would continue treating the patient's high blood pressure, diabetes mellitus, and dyslipidemia. 3. An ophthalmological evaluation should be obtained as soon as possible to see if the patient has a treatable visual loss. 4. The patient should be encouraged to stay physically active. Thank you for entrusting me with the care of Mr. Galeano. Please do let me know if I can be of any further help. Shawn Cleaning M.D., M.S.P.H. : GABRIELLE JOB#: [id number]
--- NOTE | 2017-09-27 16:04 | General Progress Note ---
Assessment/Plan Status: stable, progressing Status Narrative Adjustment Disorder Anxiety -ativan prn -the pt is not hold-able and not at imminent dts/dto -dc home vs sniff Subjective Date patient seen: Sep 27, 2017 Neurologic/Psychiatric: Reports: anxiety, depressed, emotional problems Allergies: Coded Allergies: No Known Allergies (Unverified , 09/23/17) Objective Last 24 Hour Vital Signs Date Time Temp Pulse Resp B/P (MAP) Pulse Ox O2 Delivery O2 Flow Rate FiO2 09/27/17 15:57 98.4 68 18 112/74 (87) 100 98.4 09/27/17 11:47 97.8 67 17 113/73 (86) 98 97.8 09/27/17 09:04 67 131/81 09/27/17 09:00 Room Air 09/27/17 08:00 97.8 67 17 131/81 (98) 98 97.8 09/27/17 04:00 97.3 76 19 112/66 (81) 99 97.3 09/27/17 00:00 97.2 68 19 128/76 (93) 98 97.2 09/26/17 21:00 Room Air 09/26/17 20:00 97.6 72 19 115/66 (82) 97 97.6 09/26/17 19:55 73 18 Room Air 21 09/26/17 19:20 170/118 09/26/17 17:10 98.7 75 18 170/118 (135) 98 98.7 Intake and Output 09/26/17 09/27/17 19:00 07:00 Intake Total 400 ml Output Total 700 ml Balance 400 ml -700 ml Other 400 ml Output Urine Total 700 ml # Voids 3 Laboratory Tests 09/27/17 07:00: White Blood Count 5.1, Red Blood Count 5.28, Hemoglobin 16.3, Hematocrit 48.0, Mean Corpuscular Volume 91, Mean Corpuscular Hemoglobin 30.8, Mean Corpuscular Hemoglobin Concent 33.9, Red Cell Distribution Width 11.5L, Platelet Count 244, Mean Platelet Volume 8.4, Neutrophils (%) (Auto) 42.8L, Lymphocytes (%) (Auto) 40.2, Monocytes (%) (Auto) 13.5H, Eosinophils (%) (Auto) 2.2, Basophils (%) ( Auto) 1.3, Sodium Level 137, Potassium Level 4.0, Chloride Level 101, Carbon Dioxide Level 28, Anion Gap 8, Blood Urea Nitrogen 13, Creatinine 0.9, Estimat Glomerular Filtration Rate , Glucose Level 79, Calcium Level 9.3 Height (Feet): 5 Height (Inches): 4.00 Weight (Pounds): 145 General Appearance: no apparent distress, alert Neurologic: oriented x 3, depressed affect Cynthia Marvin MD Sep 27, 2017 16:04
[2017-09-27] MEDS: Atorvastatin 20mg tab ORAL SCH (20:11)
[2017-09-28 04:00] VITALS: BP 108/65
[2017-09-28] MEDS: NovoLOG Insulin Flexpen SUBQ SCH ×4 (06:24→21:00)
[2017-09-28 06:33] LABS: BASOPHILS % (AUTO) 0.9 % (0.0-2.0); EOSINOPHILS % (AUTO) 1.6 % (0.0-3.0); HEMATOCRIT 45.6 % (42.0-52.0); HEMOGLOBIN 15.7 G/DL (14.2-18.0); LYMPHOCYTES % (AUTO) 26.9 % (20.0-45.0); MEAN CORPUSCULAR VOLUME 90 FL (80-99); MONOCYTES % (AUTO) 12.7 % (1.0-10.0); PLATELET COUNT 235 K/UL (150-450); RED BLOOD COUNT 5.05 M/UL (4.70-6.10); RED CELL DISTRIBUTION WIDTH 11.2 % (11.6-14.8); WHITE BLOOD COUNT 7.4 K/UL (4.8-10.8)
[2017-09-28 07:48] LABS: ANION GAP 8 mmol/L (5-15); BLOOD UREA NITROGEN 16 mg/dL (7-18); CALCIUM 9.5 MG/DL (8.5-10.1); CARBON DIOXIDE 28 MMOL/L (21-32); CHLORIDE 104 MMOL/L (98-107); CREATININE 0.9 MG/DL (0.55-1.30); POTASSIUM 3.9 MMOL/L (3.5-5.1); SODIUM 140 MMOL/L (136-145)
[2017-09-28 08:00] VITALS: BP 124/73
[2017-09-28] MEDS: Heparin 5000 units/ml inj SUBQ SCH ×2 (09:24→20:52)
[2017-09-28] MEDS: Aspirin EC 81mg tab ORAL SCH (09:24)
[2017-09-28] MEDS: sitaGLIPtin 25mg tab ORAL SCH (09:25)
--- NOTE | 2017-09-28 11:45 | Pulmonology Progress Note ---
Assessment/Plan Problems: (1) unable to care for himself (2) Cataracts, bilateral (3) Diabetes mellitus Assessment/Plan doing better all noted sliding sclae pt/ot evaluation dvt propylaxis dc planning Subjective ROS Limited/Unobtainable: No Constitutional: Reports: no symptoms HEENT: Repors: no symptoms Respiratory: Reports: no symptoms Allergies: Coded Allergies: No Known Allergies (Unverified , 09/23/17) Objective Last 24 Hour Vital Signs Date Time Temp Pulse Resp B/P (MAP) Pulse Ox O2 Delivery O2 Flow Rate FiO2 09/28/17 09:25 64 124/73 09/28/17 09:00 Room Air 09/28/17 08:00 97.0 64 124/73 (90) 97.0 09/28/17 04:00 97.5 69 19 108/65 (79) 98 97.5 09/27/17 22:30 66 18 115/72 (86) 96 09/27/17 20:24 Room Air 09/27/17 20:00 97.1 73 20 102/71 (81) 97 97.1 09/27/17 18:21 87 129/70 09/27/17 17:48 80 20 Room Air 21 09/27/17 15:57 98.4 68 18 112/74 (87) 100 98.4 09/27/17 11:47 97.8 67 17 113/73 (86) 98 97.8 Intake and Output 09/27/17 09/28/17 19:00 07:00 Intake Total 900 ml 100 ml Output Total 1200 ml 800 ml Balance -300 ml -700 ml Intake Oral 100 ml Other 900 ml Output Urine Total 1200 ml 800 ml # Bowel Movements 1 Objective General Appearance: WD/WN Lines, tubes and drains: peripheral, central line HEENT: normocephalic, atraumatic Neck: non-tender, normal alignment Respiratory/Chest: chest wall non-tender, lungs clear Breasts: no masses Cardiovascular/Chest: normal peripheral pulses Abdomen: normal bowel sounds Genitourinary/Rectal: normal genital exam, normal prostate exam Extremities: normal range of motion Laboratory Tests 09/28/17 05:05: White Blood Count 7.4, Red Blood Count 5.05, Hemoglobin 15.7, Hematocrit 45.6, Mean Corpuscular Volume 90, Mean Corpuscular Hemoglobin 31.1H, Mean Corpuscular Hemoglobin Concent 34.5, Red Cell Distribution Width 11.2L, Platelet Count 235, Mean Platelet Volume 8.2, Neutrophils (%) (Auto) 58.0, Lymphocytes (%) (Auto) 26.9, Monocytes (%) (Auto) 12.7H, Eosinophils (%) (Auto) 1.6, Basophils (%) ( Auto) 0.9, Sodium Level 140, Potassium Level 3.9, Chloride Level 104, Carbon Dioxide Level 28, Anion Gap 8, Blood Urea Nitrogen 16, Creatinine 0.9, Estimat Glomerular Filtration Rate , Glucose Level 83, Calcium Level 9.5 Current Medications Medications (Trade) Dose Ordered Sig/Cornelius Route PRN Reason Start Time Stop Time Status Last Admin Dose Admin Acetaminophen (Tylenol) 650 mg Q4H PRN ORAL fever (temp>100.5F) 09/23/17 18:00 10/23/17 17:59 Al Hydroxide/Mg Hydroxide (Mylanta II) 30 ml Q6H PRN ORAL dyspepsia 09/23/17 18:00 10/23/17 17:59 Albuterol/ Ipratropium (Albuterol/ Ipratropium) 3 ml Q4H PRN HHN Shortness of Breath 09/23/17 18:00 09/28/17 17:59 Amlodipine Besylate (Norvasc) 2.5 mg BID ORAL 09/27/17 09:00 10/27/17 08:59 09/28/17 09:25 Aspirin (Ecotrin) 81 mg DAILY ORAL 09/26/17 09:00 10/26/17 08:59 09/28/17 09:24 Atorvastatin Calcium (Lipitor) 40 mg BEDTIME ORAL 09/27/17 21:00 10/24/17 20:59 09/27/17 20:11 Clonidine HCl (Catapres Tab) 0.1 mg Q4H PRN ORAL For High Blood Pressure 09/23/17 18:00 10/23/17 17:59 09/26/17 19:20 Dextrose (Dextrose 50%) 25 ml STAT PRN IV Hypoglycemia 09/23/17 18:00 10/23/17 17:59 Dextrose (Dextrose 50%) 50 ml STAT PRN IV Hypoglycemia 09/23/17 18:00 10/23/17 17:59 Fluoxetine HCl (PROzac) 20 mg DAILY ORAL 09/28/17 09:00 10/28/17 08:59 09/28/17 09:25 Haloperidol Lactate (Haldol) 5 mg Q4H PRN IM Agitation 09/25/17 17:47 10/25/17 17:29 09/27/17 21:51 Heparin Sodium (Porcine) (Heparin 5000 units/ml) 5,000 units EVERY 12 HOURS SUBQ 09/23/17 21:00 10/23/17 20:59 09/28/17 09:24 Insulin Aspart (NovoLOG) BEFORE MEALS AND HS SUBQ 09/23/17 21:00 10/23/17 20:59 09/26/17 20:27 Lorazepam (Ativan 2mg/ml 1ml) 0.5 mg Q4H PRN IV For Anxiety 09/23/17 18:00 09/30/17 17:59 Morphine Sulfate (Morphine Sulfate) 1 mg Q4H PRN IVP For Pain 7-09/23/17 18:00 09/30/17 17:59 Nitroglycerin (Ntg) 0.4 mg Q5M X 3 DOSES PRN SL Prn Chest Pain 09/23/17 18:00 10/23/17 17:59 Ondansetron HCl (Zofran) 4 mg Q6H PRN IVP Nausea & Vomiting 09/23/17 18:00 10/23/17 17:59 Polyethylene Glycol (Miralax) 17 gm HSPRN PRN ORAL Constipation 09/23/17 18:00 10/23/17 17:59 Quetiapine Fumarate (SEROquel) 25 mg Q4H PRN ORAL Agitation 09/25/17 17:30 10/25/17 17:29 Sitagliptin Phosphate (Januvia) 25 mg DAILY ORAL 09/24/17 09:00 10/24/17 08:59 09/28/17 09:25 Temazepam (Restoril) 15 mg HSPRN PRN ORAL Insomnia 09/26/17 23:45 10/03/17 23:44 Jesus Pichardo MD Sep 28, 2017 11:45
[2017-09-28 12:00] VITALS: BP 101/71
--- NOTE | 2017-09-28 15:29 | General Progress Note ---
Assessment/Plan Problem List: (1) Dizziness ICD Codes: R42 - Dizziness and giddiness SNOMED: 187832274, 196064900 (2) Suicidal ideation ICD Codes: R45.851 - Suicidal ideations SNOMED: 6678435 (3) Cataracts, bilateral ICD Codes: H26.9 - Unspecified cataract SNOMED: 04449941 Qualifiers: Qualified Codes: H26.9 - Unspecified cataract (4) Blindness ICD Codes: H54.7 - Unspecified visual loss SNOMED: 416735219 (5) Headache ICD Codes: R51 - Headache SNOMED: 36931217 Qualifiers: Qualified Codes: R51 - Headache Status: stable, progressing Assessment/Plan ot pt diet pain control neuro psyc f/u dc plan snf Subjective Constitutional: Reports: weakness Allergies: Coded Allergies: No Known Allergies (Unverified , 09/23/17) All Systems: reviewed and negative except above Subjective calm in bed sleepy Objective Last 24 Hour Vital Signs Date Time Temp Pulse Resp B/P (MAP) Pulse Ox O2 Delivery O2 Flow Rate FiO2 09/28/17 12:00 97.5 75 19 101/71 (81) 99 97.5 09/28/17 09:25 64 124/73 09/28/17 09:00 Room Air 09/28/17 08:00 97.0 64 124/73 (90) 97.0 09/28/17 04:00 97.5 69 19 108/65 (79) 98 97.5 09/27/17 22:30 66 18 115/72 (86) 96 09/27/17 20:24 Room Air 09/27/17 20:00 97.1 73 20 102/71 (81) 97 97.1 09/27/17 18:21 87 129/70 09/27/17 17:48 80 20 Room Air 21 09/27/17 15:57 98.4 68 18 112/74 (87) 100 98.4 Intake and Output 09/27/17 09/28/17 19:00 07:00 Intake Total 900 ml 100 ml Output Total 1200 ml 800 ml Balance -300 ml -700 ml Intake Oral 100 ml Other 900 ml Output Urine Total 1200 ml 800 ml # Bowel Movements 1 Laboratory Tests 09/28/17 05:05: White Blood Count 7.4, Red Blood Count 5.05, Hemoglobin 15.7, Hematocrit 45.6, Mean Corpuscular Volume 90, Mean Corpuscular Hemoglobin 31.1H, Mean Corpuscular Hemoglobin Concent 34.5, Red Cell Distribution Width 11.2L, Platelet Count 235, Mean Platelet Volume 8.2, Neutrophils (%) (Auto) 58.0, Lymphocytes (%) (Auto) 26.9, Monocytes (%) (Auto) 12.7H, Eosinophils (%) (Auto) 1.6, Basophils (%) ( Auto) 0.9, Sodium Level 140, Potassium Level 3.9, Chloride Level 104, Carbon Dioxide Level 28, Anion Gap 8, Blood Urea Nitrogen 16, Creatinine 0.9, Estimat Glomerular Filtration Rate , Glucose Level 83, Calcium Level 9.5 Height (Feet): 5 Height (Inches): 4.00 Weight (Pounds): 145 General Appearance: lethargic EENT: normal ENT inspection Neck: normal alignment Cardiovascular: normal peripheral pulses, normal rate, regular rhythm Respiratory/Chest: chest wall non-tender, lungs clear, normal breath sounds Abdomen: normal bowel sounds, non tender, soft Extremities: normal inspection Edema: no edema noted Arm (L), no edema noted Arm (R), no edema noted Leg (L), no edema noted Leg (R), no edema noted Pedal (L), no edema noted Pedal (R), no edema noted Generalized Neurologic: motor weakness Skin: normal pigmentation, warm/dry Juan Montgomery DO Sep 28, 2017 15:29
[2017-09-28 16:00] VITALS: BP 124/68
--- NOTE | 2017-09-28 16:03 | General Progress Note ---
Assessment/Plan Status: stable, progressing Assessment/Plan Adjustment Disorder Anxiety -ativan prn -the pt is not hold-able and not at imminent dts/dto -dc home vs sniff Subjective Date patient seen: Sep 28, 2017 Neurologic/Psychiatric: Reports: anxiety, depressed, emotional problems Allergies: Coded Allergies: No Known Allergies (Unverified , 09/23/17) Objective Last 24 Hour Vital Signs Date Time Temp Pulse Resp B/P (MAP) Pulse Ox O2 Delivery O2 Flow Rate FiO2 09/28/17 12:00 97.5 75 19 101/71 (81) 99 97.5 09/28/17 09:25 64 124/73 09/28/17 09:00 Room Air 09/28/17 08:00 97.0 64 124/73 (90) 97.0 09/28/17 04:00 97.5 69 19 108/65 (79) 98 97.5 09/27/17 22:30 66 18 115/72 (86) 96 09/27/17 20:24 Room Air 09/27/17 20:00 97.1 73 20 102/71 (81) 97 97.1 09/27/17 18:21 87 129/70 09/27/17 17:48 80 20 Room Air 21 Intake and Output 09/27/17 09/28/17 19:00 07:00 Intake Total 900 ml 100 ml Output Total 1200 ml 800 ml Balance -300 ml -700 ml Intake Oral 100 ml Other 900 ml Output Urine Total 1200 ml 800 ml # Bowel Movements 1 Laboratory Tests 09/28/17 05:05: White Blood Count 7.4, Red Blood Count 5.05, Hemoglobin 15.7, Hematocrit 45.6, Mean Corpuscular Volume 90, Mean Corpuscular Hemoglobin 31.1H, Mean Corpuscular Hemoglobin Concent 34.5, Red Cell Distribution Width 11.2L, Platelet Count 235, Mean Platelet Volume 8.2, Neutrophils (%) (Auto) 58.0, Lymphocytes (%) (Auto) 26.9, Monocytes (%) (Auto) 12.7H, Eosinophils (%) (Auto) 1.6, Basophils (%) ( Auto) 0.9, Sodium Level 140, Potassium Level 3.9, Chloride Level 104, Carbon Dioxide Level 28, Anion Gap 8, Blood Urea Nitrogen 16, Creatinine 0.9, Estimat Glomerular Filtration Rate , Glucose Level 83, Calcium Level 9.5 Height (Feet): 5 Height (Inches): 4.00 Weight (Pounds): 145 General Appearance: no apparent distress, alert Neurologic: oriented x 3, responsive, depressed affect Cynthia Marvin MD Sep 28, 2017 16:03
--- NOTE | 2017-09-28 16:55 | Neurology Progress Note ---
Interim History Interim History Interim History Mr. Galeano feels about the same as yesterday. His vision is still poor. He is unable to see anything other than bright light in his right eye. He denies any new neurologic symptoms. He has not been seen by an Super[facility] yet. Review of Systems Neuro Review of Systems Benign. Objective Physical Exam Last Vital Signs Date Time Temp Pulse Resp B/P (MAP) Pulse Ox O2 Delivery O2 Flow Rate FiO2 09/28/17 16:00 97.3 69 18 124/68 (86) 98 97.3 09/28/17 09:00 Room Air 09/27/17 17:48 21 Laboratory Tests Test 09/28/17 05:05 White Blood Count 7.4 K/UL (4.8-10.8) Red Blood Count 5.05 M/UL (4.70-6.10) Hemoglobin 15.7 G/DL (14.2-18.0) Hematocrit 45.6 % (42.0-52.0) Mean Corpuscular Volume 90 FL (80-99) Mean Corpuscular Hemoglobin 31.1 PG (27.0-31.0) H Mean Corpuscular Hemoglobin Concent 34.5 G/DL (32.0-36.0) Red Cell Distribution Width 11.2 % (11.6-14.8) L Platelet Count 235 K/UL (150-450) Mean Platelet Volume 8.2 FL (6.5-10.1) Neutrophils (%) (Auto) 58.0 % (45.0-75.0) Lymphocytes (%) (Auto) 26.9 % (20.0-45.0) Monocytes (%) (Auto) 12.7 % (1.0-10.0) H Eosinophils (%) (Auto) 1.6 % (0.0-3.0) Basophils (%) (Auto) 0.9 % (0.0-2.0) Sodium Level 140 MMOL/L (136-145) Potassium Level 3.9 MMOL/L (3.5-5.1) Chloride Level 104 MMOL/L (98-107) Carbon Dioxide Level 28 MMOL/L (21-32) Anion Gap 8 mmol/L (5-15) Blood Urea Nitrogen 16 mg/dL (7-18) Creatinine 0.9 MG/DL (0.55-1.30) Estimat Glomerular Filtration Rate mL/min (>60) Glucose Level 83 MG/DL (74-106) Calcium Level 9.5 MG/DL (8.5-10.1) Neurologic Exam Objective PHYSICAL EXAMINATION: GENERAL: He is a well-developed, well-nourished, pleasant gentleman, lying in bed, in no acute distress. HEAD: Normocephalic and atraumatic. EENT: Examination, benign NECK: No neck rigidity was observed. NEUROLOGIC EXAMINATION: MENTAL STATUS EXAMINATION: He was awake and alert. He was oriented to self, [facility] and September 2017, but did not know the date. He was able to recall 3/3 words immediately, but could only remember 2/3 words in 1 minute and 3 minutes. He was able to remember presidents, Trump and Obama, but could not remember presidents prior to that. His mathematical skills were impaired. His visuospatial function was also impaired. SPEECH: He had no dysarthria. LANGUAGE: Could not be tested adequately because of his poor educational level. CRANIAL NERVE EXAMINATION: II: He was able to discern light in the right eye, but not in the left eye. III, IV & : The right pupil was 3 mm and constricted to 2.5 mm with light. The left pupil was 3 mm and did not react to light. The external ocular movements were full when the patient was told to move his eyes to either side, up and down. V: He had normal facial sensations and the temporales, masseters, and pterygoids functioned normally. VII: He had normal facial expressions, and no facial asymmetry. VIII: He was able to hear well and had no nystagmus, IX: The palate moved symmetrically on phonation. X: He had no hoarseness of voice. XI: The sternocleidomastoids and trapezii functioned normally. XII: The tongue was in the midline without any fasciculations or atrophy. MOTOR SYSTEM: The tone was normal in all four extremities. Examination of muscle mass revealed no focal wasting. Examination of power revealed G 5/5 power and all muscle groups tested. SENSORY EXAMINATION: He had intact sensations to pinprick, light touch, and graphesthesia. COORDINATION: He performed well on [id number] and [id number]-ro-[id number] testing. REFLEXES: Trace+ and bilaterally symmetrical at the biceps, triceps, brachioradialis, and knees. 0 at both ankles. The plantar responses were flexor bilaterally. STANCE & GAIT: Could not be tested because he did not want to get up. Impression/Recommendations Diagnostic Impression 1. Mr. 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 2. He feels about the same as yesterday. His vision is still poor. He is unable to see anything other than bright light in his right eye. He denies any new neurologic symptoms. He has not been seen by an Super[facility] yet. 3. On neurological examination, at this time, he is disoriented to the name of the hospital and the exact date. He does have problems with recent and remote memory, visuospatial function, and higher cognitive function. The right pupil constricts to light whereas the left does not. In addition, all he is able to see is light in his right eye. His motor power is good. His sensory function is preserved. His deep tendon reflexes are globally diminished. 4. His latest laboratory data revealed a relatively normal CBC, relatively normal chemistry panel, normal TSH, and normal urinalysis. 5. The MRI scan of the brain performed on 09/22/2017 revealed tiny lacunar infarcts in the bilateral cerebral peduncles, a tiny infarct in the greta right of the midline and in addition, periventricular deep white matter changes consistent with chronic ischemic disease. However, no acute pathology was seen. 6. 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 Recommendations 1. Continue present management. 2. Continue treating the patient's high blood pressure, diabetes mellitus, and dyslipidemia. 3. An ophthalmological evaluation should be obtained as soon as possible to see if the patient has a treatable visual loss. 4. The patient should be encouraged to stay physically active. Edi Cleaning M.D., M.S.P.H. [employer] Sep 28, 2017 16:55
--- NOTE | 2017-09-28 19:43 | Cardiology Progress Note ---
Assessment/Plan Assessment/Plan 1. Accelerated hypertension, well controlled, continue amlodipine. 2D echocardiography had shown normal LV systolic function with LVEF of about 60%. 2. Sinus bradycardia, asymptomatic. No treatment is required. 3. History of diabetes mellitus, continue ASA 81 daily. 4. Blindness. 5. Dyslipidemia with elevated LDL, continue atorvastatin. Subjective Subjective No cardiac events. Objective Last 24 Hour Vital Signs Date Time Temp Pulse Resp B/P (MAP) Pulse Ox O2 Delivery O2 Flow Rate FiO2 09/28/17 17:06 66 121/70 09/28/17 16:00 97.3 69 18 124/68 (86) 98 97.3 09/28/17 12:00 97.5 75 19 101/71 (81) 99 97.5 09/28/17 09:25 64 124/73 09/28/17 09:00 Room Air 09/28/17 08:00 97.0 64 124/73 (90) 97.0 09/28/17 04:00 97.5 69 19 108/65 (79) 98 97.5 09/27/17 22:30 66 18 115/72 (86) 96 09/27/17 20:24 Room Air 09/27/17 20:00 97.1 73 20 102/71 (81) 97 97.1 Intake and Output 09/27/17 09/28/17 19:00 07:00 Intake Total 900 ml 100 ml Output Total 1200 ml 800 ml Balance -300 ml -700 ml Intake Oral 100 ml Other 900 ml Output Urine Total 1200 ml 800 ml # Bowel Movements 1 2D Echo: EF 60%, Mild MR, Grade I LVDD, RVSP 15 mmHg Laboratory Tests Test 09/28/17 05:05 White Blood Count 7.4 K/UL (4.8-10.8) Red Blood Count 5.05 M/UL (4.70-6.10) Hemoglobin 15.7 G/DL (14.2-18.0) Hematocrit 45.6 % (42.0-52.0) Mean Corpuscular Volume 90 FL (80-99) Mean Corpuscular Hemoglobin 31.1 PG (27.0-31.0) H Mean Corpuscular Hemoglobin Concent 34.5 G/DL (32.0-36.0) Red Cell Distribution Width 11.2 % (11.6-14.8) L Platelet Count 235 K/UL (150-450) Mean Platelet Volume 8.2 FL (6.5-10.1) Neutrophils (%) (Auto) 58.0 % (45.0-75.0) Lymphocytes (%) (Auto) 26.9 % (20.0-45.0) Monocytes (%) (Auto) 12.7 % (1.0-10.0) H Eosinophils (%) (Auto) 1.6 % (0.0-3.0) Basophils (%) (Auto) 0.9 % (0.0-2.0) Sodium Level 140 MMOL/L (136-145) Potassium Level 3.9 MMOL/L (3.5-5.1) Chloride Level 104 MMOL/L (98-107) Carbon Dioxide Level 28 MMOL/L (21-32) Anion Gap 8 mmol/L (5-15) Blood Urea Nitrogen 16 mg/dL (7-18) Creatinine 0.9 MG/DL (0.55-1.30) Estimat Glomerular Filtration Rate mL/min (>60) Glucose Level 83 MG/DL (74-106) Calcium Level 9.5 MG/DL (8.5-10.1) Objective HEENT: Atraumatic and normocephalic. Anicteric. Dense bilateral cataracts. NECK: JVP less than 5 cm. No carotid bruit. Carotid upstrokes 2+ bilaterally. CARDIOVASCULAR: Normal S1, S2. Regular rate and rhythm. No murmurs, gallops, or rubs. PMI is at fourth intercostal space in midclavicular line. LUNGS: Clear to auscultation bilaterally. ABDOMEN: Soft, nontender, and nondistended. No hepatosplenomegaly. Positive bowel sounds. EXTREMITIES: No evidence of edema, clubbing, or cyanosis. Flavio Yanez MD Sep 28, 2017 19:43
[2017-09-28 20:00] VITALS: BP 117/64
[2017-09-28] MEDS: Atorvastatin 20mg tab ORAL SCH (20:48)
[2017-09-29] VITALS: BP 114/73
[2017-09-29 04:00] VITALS: BP 112/71
[2017-09-29] MEDS: NovoLOG Insulin Flexpen SUBQ SCH ×4 (06:30→21:00)
[2017-09-29] MEDS: Aspirin EC 81mg tab ORAL SCH (09:00)
[2017-09-29] MEDS: sitaGLIPtin 25mg tab ORAL SCH (09:00)
[2017-09-29] MEDS: Heparin 5000 units/ml inj SUBQ SCH ×2 (09:00→21:00)
[2017-09-29 12:00] VITALS: BP 120/79
--- NOTE | 2017-09-29 13:08 | Pulmonology Progress Note ---
Assessment/Plan Problems: (1) unable to care for himself (2) Cataracts, bilateral (3) Diabetes mellitus Assessment/Plan doing better all noted sliding sclae pt/ot evaluation dvt propylaxis dc planning Subjective ROS Limited/Unobtainable: No Constitutional: Reports: no symptoms HEENT: Repors: no symptoms Respiratory: Reports: no symptoms Allergies: Coded Allergies: No Known Allergies (Unverified , 09/23/17) Objective Last 24 Hour Vital Signs Date Time Temp Pulse Resp B/P (MAP) Pulse Ox O2 Delivery O2 Flow Rate FiO2 09/29/17 12:00 97.2 66 22 120/79 (93) 99 97.2 09/29/17 09:00 Room Air 09/29/17 04:00 97.2 61 20 112/71 (85) 98 97.2 09/29/17 00:00 97.5 62 20 114/73 (87) 96 97.5 09/28/17 21:00 Room Air 09/28/17 20:00 98.1 60 19 117/64 (81) 97 98.1 09/28/17 17:06 66 121/70 09/28/17 16:00 97.3 69 18 124/68 (86) 98 97.3 Intake and Output 09/28/17 09/29/17 19:00 07:00 Intake Total 840 ml Output Total 800 ml Balance 840 ml -800 ml Intake Oral 840 ml Output Urine Total 800 ml # Voids 6 Objective General Appearance: WD/WN Lines, tubes and drains: peripheral, central line HEENT: normocephalic, atraumatic Neck: non-tender, normal alignment Respiratory/Chest: chest wall non-tender, lungs clear Breasts: no masses Cardiovascular/Chest: normal peripheral pulses Abdomen: normal bowel sounds Genitourinary/Rectal: normal genital exam, normal prostate exam Extremities: normal range of motion Current Medications Medications (Trade) Dose Ordered Sig/Cornelius Route PRN Reason Start Time Stop Time Status Last Admin Dose Admin Acetaminophen (Tylenol) 650 mg Q4H PRN ORAL fever (temp>100.5F) 09/23/17 18:00 10/23/17 17:59 Al Hydroxide/Mg Hydroxide (Mylanta II) 30 ml Q6H PRN ORAL dyspepsia 09/23/17 18:00 10/23/17 17:59 Amlodipine Besylate (Norvasc) 2.5 mg BID ORAL 09/27/17 09:00 10/27/17 08:59 09/28/17 17:06 Aspirin (Ecotrin) 81 mg DAILY ORAL 09/26/17 09:00 10/26/17 08:59 09/28/17 09:24 Atorvastatin Calcium (Lipitor) 40 mg BEDTIME ORAL 09/27/17 21:00 10/24/17 20:59 09/28/17 20:48 Clonidine HCl (Catapres Tab) 0.1 mg Q4H PRN ORAL For High Blood Pressure 09/23/17 18:00 10/23/17 17:59 09/26/17 19:20 Dextrose (Dextrose 50%) 25 ml STAT PRN IV Hypoglycemia 09/23/17 18:00 10/23/17 17:59 Dextrose (Dextrose 50%) 50 ml STAT PRN IV Hypoglycemia 09/23/17 18:00 10/23/17 17:59 Fluoxetine HCl (PROzac) 20 mg DAILY ORAL 09/28/17 09:00 10/28/17 08:59 09/28/17 09:25 Haloperidol Lactate (Haldol) 5 mg Q4H PRN IM Agitation 09/25/17 17:47 10/25/17 17:29 09/27/17 21:51 Heparin Sodium (Porcine) (Heparin 5000 units/ml) 5,000 units EVERY 12 HOURS SUBQ 09/23/17 21:00 10/23/17 20:59 09/28/17 20:52 Insulin Aspart (NovoLOG) BEFORE MEALS AND HS SUBQ 09/23/17 21:00 10/23/17 20:59 09/29/17 11:56 Lorazepam (Ativan 2mg/ml 1ml) 0.5 mg Q4H PRN IV For Anxiety 09/23/17 18:00 09/30/17 17:59 Morphine Sulfate (Morphine Sulfate) 1 mg Q4H PRN IVP For Pain 7-10 09/23/17 18:00 09/30/17 17:59 Nitroglycerin (Ntg) 0.4 mg Q5M X 3 DOSES PRN SL Prn Chest Pain 09/23/17 18:00 10/23/17 17:59 Ondansetron HCl (Zofran) 4 mg Q6H PRN IVP Nausea & Vomiting 09/23/17 18:00 10/23/17 17:59 Polyethylene Glycol (Miralax) 17 gm HSPRN PRN ORAL Constipation 09/23/17 18:00 10/23/17 17:59 Quetiapine Fumarate (SEROquel) 25 mg Q4H PRN ORAL Agitation 09/25/17 17:30 10/25/17 17:29 Sitagliptin Phosphate (Januvia) 25 mg DAILY ORAL 09/24/17 09:00 10/24/17 08:59 09/28/17 09:25 Temazepam (Restoril) 15 mg HSPRN PRN ORAL Insomnia 09/26/17 23:45 10/03/17 23:44 Jesus Pichardo MD Sep 29, 2017 13:08
--- NOTE | 2017-09-29 13:56 | General Progress Note ---
Assessment/Plan Problem List: (1) Dizziness ICD Codes: R42 - Dizziness and giddiness SNOMED: 245036361, 452328070 (2) Suicidal ideation ICD Codes: R45.851 - Suicidal ideations SNOMED: 6286069 (3) Cataracts, bilateral ICD Codes: H26.9 - Unspecified cataract SNOMED: 54463323 Qualifiers: Qualified Codes: H26.9 - Unspecified cataract (4) Blindness ICD Codes: H54.7 - Unspecified visual loss SNOMED: 473806097 (5) Headache ICD Codes: R51 - Headache SNOMED: 68505636 Qualifiers: Qualified Codes: R51 - Headache Status: stable, progressing Assessment/Plan ot pt diet pain control neuro psyc f/u dc to snf if clear Subjective Constitutional: Reports: weakness Allergies: Coded Allergies: No Known Allergies (Unverified , 09/23/17) All Systems: reviewed and negative except above Subjective calm in bed sleepy Objective Last 24 Hour Vital Signs Date Time Temp Pulse Resp B/P (MAP) Pulse Ox O2 Delivery O2 Flow Rate FiO2 09/29/17 12:00 97.2 66 22 120/79 (93) 99 97.2 09/29/17 09:00 Room Air 09/29/17 04:00 97.2 61 20 112/71 (85) 98 97.2 09/29/17 00:00 97.5 62 20 114/73 (87) 96 97.5 09/28/17 21:00 Room Air 09/28/17 20:00 98.1 60 19 117/64 (81) 97 98.1 09/28/17 17:06 66 121/70 09/28/17 16:00 97.3 69 18 124/68 (86) 98 97.3 Intake and Output 09/28/17 09/29/17 19:00 07:00 Intake Total 840 ml Output Total 800 ml Balance 840 ml -800 ml Intake Oral 840 ml Output Urine Total 800 ml # Voids 6 Height (Feet): 5 Height (Inches): 4.00 Weight (Pounds): 145 General Appearance: lethargic EENT: normal ENT inspection Neck: normal alignment Cardiovascular: normal peripheral pulses, normal rate, regular rhythm Respiratory/Chest: chest wall non-tender, lungs clear, normal breath sounds Abdomen: normal bowel sounds, non tender, soft Extremities: normal inspection Edema: no edema noted Arm (L), no edema noted Arm (R), no edema noted Leg (L), no edema noted Leg (R), no edema noted Pedal (L), no edema noted Pedal (R), no edema noted Generalized Neurologic: motor weakness Skin: normal pigmentation, warm/dry Juan Montgomery DO Sep 29, 2017 13:56
--- NOTE | 2017-09-29 15:11 | General Progress Note ---
Assessment/Plan Status: stable, progressing Assessment/Plan Adjustment Disorder Anxiety -ativan prn -the pt is not hold-able and not at imminent dts/dto -dc home vs sniff Subjective Date patient seen: Sep 29, 2017 Neurologic/Psychiatric: Reports: anxiety, depressed, emotional problems Allergies: Coded Allergies: No Known Allergies (Unverified , 09/23/17) Objective Last 24 Hour Vital Signs Date Time Temp Pulse Resp B/P (MAP) Pulse Ox O2 Delivery O2 Flow Rate FiO2 09/29/17 12:00 97.2 66 22 120/79 (93) 99 97.2 09/29/17 09:00 Room Air 09/29/17 04:00 97.2 61 20 112/71 (85) 98 97.2 09/29/17 00:00 97.5 62 20 114/73 (87) 96 97.5 09/28/17 21:00 Room Air 09/28/17 20:00 98.1 60 19 117/64 (81) 97 98.1 09/28/17 17:06 66 121/70 09/28/17 16:00 97.3 69 18 124/68 (86) 98 97.3 Intake and Output 09/28/17 09/29/17 19:00 07:00 Intake Total 840 ml Output Total 800 ml Balance 840 ml -800 ml Intake Oral 840 ml Output Urine Total 800 ml # Voids 6 Height (Feet): 5 Height (Inches): 4.00 Weight (Pounds): 145 General Appearance: alert Neurologic: oriented x 3, responsive, depressed affect Cynthia Marvin MD Sep 29, 2017 15:11
[2017-09-29 16:00] VITALS: BP 101/74
--- NOTE | 2017-09-29 16:59 | Neurology Progress Note ---
Interim History Interim History Interim History Mr. Galaeno feels better. He is sitting up in a chair now. His vision is still poor. He is unable to see anything other than bright light in his right eye. He denies any new neurologic symptoms. He has not been seen by an Dry Cleaning Supervisor yet. Review of Systems Neuro Review of Systems Benign. Objective Physical Exam Last Vital Signs Date Time Temp Pulse Resp B/P (MAP) Pulse Ox O2 Delivery O2 Flow Rate FiO2 09/29/17 16:00 98.1 62 21 101/74 (83) 95 98.1 09/29/17 09:00 Room Air 09/27/17 17:48 21 Neurologic Exam Objective PHYSICAL EXAMINATION: GENERAL: He is a well-developed, well-nourished, pleasant gentleman, lying in bed, in no acute distress. HEAD: Normocephalic and atraumatic. EENT: Examination, benign NECK: No neck rigidity was observed. NEUROLOGIC EXAMINATION: MENTAL STATUS EXAMINATION: He was awake and alert. He was oriented to self, [facility] and September 2017, but did not know the date. He was able to recall 3/3 words immediately, but could only remember 2/3 words in 1 minute and 3 minutes. He was able to remember presidents, Trump and Obama, but could not remember presidents prior to that. His mathematical skills were impaired. His visuospatial function was also impaired. SPEECH: He had no dysarthria. LANGUAGE: Could not be tested adequately because of his poor educational level. CRANIAL NERVE EXAMINATION: II: He was able to discern light in the right eye, but not in the left eye. III, IV & : The right pupil was 3 mm and constricted to 2.5 mm with light. The left pupil was 3 mm and did not react to light. The external ocular movements were full when the patient was told to move his eyes to either side, up and down. V: He had normal facial sensations and the temporales, masseters, and pterygoids functioned normally. VII: He had normal facial expressions, and no facial asymmetry. VIII: He was able to hear well and had no nystagmus, IX: The palate moved symmetrically on phonation. X: He had no hoarseness of voice. XI: The sternocleidomastoids and trapezii functioned normally. XII: The tongue was in the midline without any fasciculations or atrophy. MOTOR SYSTEM: The tone was normal in all four extremities. Examination of muscle mass revealed no focal wasting. Examination of power revealed G 5/5 power and all muscle groups tested. SENSORY EXAMINATION: He had intact sensations to pinprick, light touch, and graphesthesia. COORDINATION: He performed well on [id number]-gr-wlcpcp and vuxy-sb-yfga testing. REFLEXES: Trace+ and bilaterally symmetrical at the biceps, triceps, brachioradialis, and knees. 0 at both ankles. The plantar responses were flexor bilaterally. STANCE & GAIT: He was able to stand and take a few steps with support. Impression/Recommendations Diagnostic Impression 1. Mr. 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 2. He feels better. He is sitting up in a chair now. His vision is still poor. He is unable to see anything other than bright light in his right eye. He denies any new neurologic symptoms. He has not been seen by an Dry Cleaning Supervisor yet. 3. On neurological examination, at this time, he is disoriented to the name of the hospital and the exact date. He does have problems with recent and remote memory, visuospatial function, and higher cognitive function. The right pupil constricts to light whereas the left does not. In addition, all he is able to see is light in his right eye. His motor power is good. His sensory function is preserved. His deep tendon reflexes are globally diminished. He is able to stand and walk with support. 4. His latest laboratory data revealed a relatively normal CBC, relatively normal chemistry panel, normal TSH, and normal urinalysis. 5. The MRI scan of the brain performed on 09/22/2017 revealed tiny lacunar infarcts in the bilateral cerebral peduncles, a tiny infarct in the greta right of the midline and in addition, periventricular deep white matter changes consistent with chronic ischemic disease. However, no acute pathology was seen. 6. 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 The loss of vision in the left eye is also most probably due to ocular pathology. Recommendations 1. Continue present management. 2. Continue treating the patient's high blood pressure, diabetes mellitus, and dyslipidemia. 3. An ophthalmological evaluation should be obtained as soon as possible to see if the patient has a treatable visual loss. 4. The patient should be encouraged to stay physically active. Edi Cleaning M.D., M.S.P.H. [employer] Sep 29, 2017 16:58
[2017-09-29 20:00] VITALS: BP 118/74
[2017-09-29] MEDS: Atorvastatin 20mg tab ORAL SCH (21:00)
[2017-09-30 04:00] VITALS: BP 112/61
[2017-09-30] MEDS: NovoLOG Insulin Flexpen SUBQ SCH ×4 (06:30→20:44)
[2017-09-30 08:00] VITALS: BP 133/69
[2017-09-30] MEDS: sitaGLIPtin 25mg tab ORAL SCH (08:47)
[2017-09-30] MEDS: Aspirin EC 81mg tab ORAL SCH (08:47)
[2017-09-30] MEDS: Heparin 5000 units/ml inj SUBQ SCH ×2 (08:49→20:40)
[2017-09-30 12:00] VITALS: BP 116/75
--- NOTE | 2017-09-30 13:32 | General Progress Note ---
Assessment/Plan Problem List: (1) Dizziness ICD Codes: R42 - Dizziness and giddiness SNOMED: 832328985, 058733480 (2) Suicidal ideation ICD Codes: R45.851 - Suicidal ideations SNOMED: 4538142 (3) Cataracts, bilateral ICD Codes: H26.9 - Unspecified cataract SNOMED: 29437954 Qualifiers: Qualified Codes: H26.9 - Unspecified cataract (4) Blindness ICD Codes: H54.7 - Unspecified visual loss SNOMED: 049242620 (5) Headache ICD Codes: R51 - Headache SNOMED: 17156086 Qualifiers: Qualified Codes: R51 - Headache Status: stable, progressing Assessment/Plan ot pt diet pain control neuro psyc f/u dc to snf if clear Subjective Constitutional: Reports: weakness Allergies: Coded Allergies: No Known Allergies (Unverified , 09/23/17) All Systems: reviewed and negative except above Subjective calm in bed sleepy Objective Last 24 Hour Vital Signs Date Time Temp Pulse Resp B/P (MAP) Pulse Ox O2 Delivery O2 Flow Rate FiO2 09/30/17 12:00 97.7 60 20 116/75 (89) 98 97.7 09/30/17 08:47 62 133/69 09/30/17 08:00 Room Air 09/30/17 08:00 97.7 62 20 133/69 (90) 98 97.7 09/30/17 04:00 97.7 60 20 112/61 (78) 96 97.7 09/29/17 21:00 Room Air 09/29/17 20:00 98.2 60 20 118/74 (89) 99 98.2 09/29/17 17:55 62 101/74 09/29/17 16:00 98.1 62 21 101/74 (83) 95 98.1 Intake and Output 09/29/17 09/30/17 19:00 07:00 Intake Total 1200 ml 480 ml Output Total 400 ml 1650 ml Balance 800 ml -1170 ml Intake Oral 1200 ml 480 ml Output Urine Total 400 ml 1650 ml # Voids 1 7 Height (Feet): 5 Height (Inches): 4.00 Weight (Pounds): 142 General Appearance: lethargic EENT: normal ENT inspection Neck: normal alignment Cardiovascular: normal peripheral pulses, normal rate, regular rhythm Respiratory/Chest: chest wall non-tender, lungs clear, normal breath sounds Abdomen: normal bowel sounds, non tender, soft Extremities: normal inspection Edema: no edema noted Arm (L), no edema noted Arm (R), no edema noted Leg (L), no edema noted Leg (R), no edema noted Pedal (L), no edema noted Pedal (R), no edema noted Generalized Neurologic: motor weakness Skin: normal pigmentation, warm/dry Juan Montgomery DO Sep 30, 2017 13:32
--- NOTE | 2017-09-30 13:49 | Pulmonology Progress Note ---
Assessment/Plan Problems: (1) unable to care for himself (2) Cataracts, bilateral (3) Diabetes mellitus Assessment/Plan doing better all noted sliding sclae pt/ot evaluation dvt propylaxis dc planning Subjective ROS Limited/Unobtainable: No Constitutional: Reports: no symptoms HEENT: Repors: no symptoms Respiratory: Reports: no symptoms Allergies: Coded Allergies: No Known Allergies (Unverified , 09/23/17) Objective Last 24 Hour Vital Signs Date Time Temp Pulse Resp B/P (MAP) Pulse Ox O2 Delivery O2 Flow Rate FiO2 09/30/17 12:00 97.7 60 20 116/75 (89) 98 97.7 09/30/17 08:47 62 133/69 09/30/17 08:00 Room Air 09/30/17 08:00 97.7 62 20 133/69 (90) 98 97.7 09/30/17 04:00 97.7 60 20 112/61 (78) 96 97.7 09/29/17 21:00 Room Air 09/29/17 20:00 98.2 60 20 118/74 (89) 99 98.2 09/29/17 17:55 62 101/74 09/29/17 16:00 98.1 62 21 101/74 (83) 95 98.1 Intake and Output 09/29/17 09/30/17 19:00 07:00 Intake Total 1200 ml 480 ml Output Total 400 ml 1650 ml Balance 800 ml -1170 ml Intake Oral 1200 ml 480 ml Output Urine Total 400 ml 1650 ml # Voids 1 7 Objective General Appearance: WD/WN Lines, tubes and drains: peripheral, central line HEENT: normocephalic, atraumatic Neck: non-tender, normal alignment Respiratory/Chest: chest wall non-tender, lungs clear Breasts: no masses Cardiovascular/Chest: normal peripheral pulses Abdomen: normal bowel sounds Genitourinary/Rectal: normal genital exam, normal prostate exam Extremities: normal range of motion Current Medications Medications (Trade) Dose Ordered Sig/Cornelius Route PRN Reason Start Time Stop Time Status Last Admin Dose Admin Acetaminophen (Tylenol) 650 mg Q4H PRN ORAL fever (temp>100.5F) 09/23/17 18:00 10/23/17 17:59 Al Hydroxide/Mg Hydroxide (Mylanta II) 30 ml Q6H PRN ORAL dyspepsia 09/23/17 18:00 10/23/17 17:59 Amlodipine Besylate (Norvasc) 2.5 mg BID ORAL 09/27/17 09:00 10/27/17 08:59 09/30/17 08:47 Aspirin (Ecotrin) 81 mg DAILY ORAL 09/26/17 09:00 10/26/17 08:59 09/30/17 08:47 Atorvastatin Calcium (Lipitor) 40 mg BEDTIME ORAL 09/27/17 21:00 10/24/17 20:59 09/28/17 20:48 Clonidine HCl (Catapres Tab) 0.1 mg Q4H PRN ORAL For High Blood Pressure 09/23/17 18:00 10/23/17 17:59 09/26/17 19:20 Dextrose (Dextrose 50%) 25 ml STAT PRN IV Hypoglycemia 09/23/17 18:00 10/23/17 17:59 Dextrose (Dextrose 50%) 50 ml STAT PRN IV Hypoglycemia 09/23/17 18:00 10/23/17 17:59 Fluoxetine HCl (PROzac) 20 mg DAILY ORAL 09/28/17 09:00 10/28/17 08:59 09/30/17 08:47 Haloperidol Lactate (Haldol) 5 mg Q4H PRN IM Agitation 09/25/17 17:47 10/25/17 17:29 09/27/17 21:51 Heparin Sodium (Porcine) (Heparin 5000 units/ml) 5,000 units EVERY 12 HOURS SUBQ 09/23/17 21:00 10/23/17 20:59 09/30/17 08:49 Insulin Aspart (NovoLOG) BEFORE MEALS AND HS SUBQ 09/23/17 21:00 10/23/17 20:59 09/29/17 11:56 Lorazepam (Ativan 2mg/ml 1ml) 0.5 mg Q4H PRN IV For Anxiety 09/23/17 18:00 09/30/17 17:59 Morphine Sulfate (Morphine Sulfate) 1 mg Q4H PRN IVP For Pain 7-10 09/23/17 18:00 09/30/17 17:59 Nitroglycerin (Ntg) 0.4 mg Q5M X 3 DOSES PRN SL Prn Chest Pain 09/23/17 18:00 10/23/17 17:59 Ondansetron HCl (Zofran) 4 mg Q6H PRN IVP Nausea & Vomiting 09/23/17 18:00 10/23/17 17:59 Polyethylene Glycol (Miralax) 17 gm HSPRN PRN ORAL Constipation 09/23/17 18:00 10/23/17 17:59 Quetiapine Fumarate (SEROquel) 25 mg Q4H PRN ORAL Agitation 09/25/17 17:30 10/25/17 17:29 Sitagliptin Phosphate (Januvia) 25 mg DAILY ORAL 09/24/17 09:00 10/24/17 08:59 09/30/17 08:47 Temazepam (Restoril) 15 mg HSPRN PRN ORAL Insomnia 09/26/17 23:45 10/03/17 23:44 Jesus Pichardo MD Sep 30, 2017 13:49
--- NOTE | 2017-09-30 13:58 | General Progress Note ---
Assessment/Plan Assessment/Plan Adjustment Disorder Anxiety -ativan prn -the pt is not hold-able and not at imminent dts/dto -dc home vs sniff Subjective Date patient seen: Sep 30, 2017 Neurologic/Psychiatric: Reports: anxiety, depressed Allergies: Coded Allergies: No Known Allergies (Unverified , 09/23/17) Subjective denied si/hi Objective Last 24 Hour Vital Signs Date Time Temp Pulse Resp B/P (MAP) Pulse Ox O2 Delivery O2 Flow Rate FiO2 09/30/17 12:00 97.7 60 20 116/75 (89) 98 97.7 09/30/17 08:47 62 133/69 09/30/17 08:00 Room Air 09/30/17 08:00 97.7 62 20 133/69 (90) 98 97.7 09/30/17 04:00 97.7 60 20 112/61 (78) 96 97.7 09/29/17 21:00 Room Air 09/29/17 20:00 98.2 60 20 118/74 (89) 99 98.2 09/29/17 17:55 62 101/74 09/29/17 16:00 98.1 62 21 101/74 (83) 95 98.1 Intake and Output 09/29/17 09/30/17 19:00 07:00 Intake Total 1200 ml 480 ml Output Total 400 ml 1650 ml Balance 800 ml -1170 ml Intake Oral 1200 ml 480 ml Output Urine Total 400 ml 1650 ml # Voids 1 7 Height (Feet): 5 Height (Inches): 4.00 Weight (Pounds): 142 Cynthia Marvin MD Sep 30, 2017 13:58
[2017-09-30 16:00] VITALS: BP 125/71
--- NOTE | 2017-09-30 17:53 | Neurology Progress Note ---
Interim History Interim History Interim History Mr. Galeano feels better. He is sitting up in bed enjoying his dinner. His vision is still poor. He is unable to see anything other than bright light in his right eye. He denies any new neurologic symptoms. He has not been seen by an Go Cart Mechanic yet. Review of Systems Neuro Review of Systems Benign. Objective Physical Exam Last Vital Signs Date Time Temp Pulse Resp B/P (MAP) Pulse Ox O2 Delivery O2 Flow Rate FiO2 09/30/17 17:34 63 125/71 09/30/17 16:00 97.3 20 95 97.3 09/30/17 08:00 Room Air 09/27/17 17:48 21 Neurologic Exam Objective PHYSICAL EXAMINATION: GENERAL: He is a well-developed, well-nourished, pleasant gentleman, lying in bed, in no acute distress. HEAD: Normocephalic and atraumatic. EENT: Examination, benign NECK: No neck rigidity was observed. NEUROLOGIC EXAMINATION: MENTAL STATUS EXAMINATION: He was awake and alert. He was [place] [facility] [place], but did not know the exact date. He was able to recall 3/3 words immediately, but could only remember 2/3 words in 1 minute and 3 minutes. He was able to remember presidents, Trump and Obama, but could not remember presidents prior to that. His mathematical skills were impaired. His visuospatial function was also impaired. SPEECH: He had no dysarthria. LANGUAGE: Could not be tested adequately because of his poor educational level. CRANIAL NERVE EXAMINATION: II: He was able to discern light in the right eye, but not in the left eye. III, IV & : The right pupil was 3 mm and constricted to 2.5 mm with light. The left pupil was 3 mm and did not react to light. The external ocular movements were full when the patient was told to move his eyes to either side, up and down. V: He had normal facial sensations and the temporales, masseters, and pterygoids functioned normally. VII: He had normal facial expressions, and no facial asymmetry. VIII: He was able to hear well and had no nystagmus, IX: The palate moved symmetrically on phonation. X: He had no hoarseness of voice. XI: The sternocleidomastoids and trapezii functioned normally. XII: The tongue was in the midline without any fasciculations or atrophy. MOTOR SYSTEM: The tone was normal in all four extremities. Examination of muscle mass revealed no focal wasting. Examination of power revealed G 5/5 power and all muscle groups tested. SENSORY EXAMINATION: He had intact sensations to pinprick, light touch, and graphesthesia. COORDINATION: He performed well on [id number]-dx-bwwcxm and pzse-ba-iwvb testing. REFLEXES: Trace+ and bilaterally symmetrical at the biceps, triceps, brachioradialis, and knees. 0 at both ankles. The plantar responses were flexor bilaterally. STANCE & GAIT: He was able to stand and take a few steps with support. Impression/Recommendations Diagnostic Impression 1. Mr. 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 2. He feels better. He is sitting up in bed enjoying his dinner. His vision is still poor. He is unable to see anything other than bright light in his right eye. He denies any new neurologic symptoms. He has not been seen by an Go Cart Mechanic yet. 3. On neurological examination, at this time, he is disoriented to the name of the hospital and the exact date. He does have problems with recent and remote memory, visuospatial function, and higher cognitive function. The right pupil constricts to light whereas the left does not. In addition, all he is able to see is light in his right eye. His motor power is good. His sensory function is preserved. His deep tendon reflexes are globally diminished. He is able to stand and walk with support. 4. His latest laboratory data revealed a relatively normal CBC, relatively normal chemistry panel, normal TSH, and normal urinalysis. 5. The MRI scan of the brain performed on 09/22/2017 revealed tiny lacunar infarcts in the bilateral cerebral peduncles, a tiny infarct in the greta right of the midline and in addition, periventricular deep white matter changes consistent with chronic ischemic disease. However, no acute pathology was seen. 6. 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 The loss of vision in the left eye is also most probably due to ocular pathology. Recommendations 1. Continue present management. 2. Continue treating the patient's high blood pressure, diabetes mellitus, and dyslipidemia. 3. An ophthalmological evaluation should be obtained as soon as possible to see if the patient has a treatable visual loss. 4. The patient should be encouraged to stay physically active. Edi Cleaning M.D., M.S.P.H. [employer] Sep 30, 2017 17:53
[2017-09-30 20:00] VITALS: BP 137/76
[2017-09-30] MEDS: Atorvastatin 20mg tab ORAL SCH (20:39)
--- NOTE | 2017-09-30 23:08 | Cardiology Progress Note ---
Assessment/Plan Assessment/Plan 1. Accelerated hypertension, well controlled, continue amlodipine, normal LVEF at 60%. 2. Sinus bradycardia, asymptomatic. No treatment is required. 3. History of diabetes mellitus, continue ASA 81 daily. 4. Blindness. 5. Dyslipidemia with elevated LDL, continue atorvastatin. Subjective Subjective No cardiac events. Denies chest pain or SOB. Objective Last 24 Hour Vital Signs Date Time Temp Pulse Resp B/P (MAP) Pulse Ox O2 Delivery O2 Flow Rate FiO2 09/30/17 21:00 Room Air 09/30/17 20:00 98.4 59 18 137/76 (96) 96 98.4 09/30/17 17:34 63 125/71 09/30/17 16:00 97.3 63 20 125/71 (89) 95 97.3 09/30/17 12:00 97.7 60 20 116/75 (89) 98 97.7 09/30/17 08:47 62 133/69 09/30/17 08:00 Room Air 09/30/17 08:00 97.7 62 20 133/69 (90) 98 97.7 09/30/17 04:00 97.7 60 20 112/61 (78) 96 97.7 Intake and Output 09/29/17 09/30/17 19:00 07:00 Intake Total 1200 ml 480 ml Output Total 400 ml 1650 ml Balance 800 ml -1170 ml Intake Oral 1200 ml 480 ml Output Urine Total 400 ml 1650 ml # Voids 1 7 2D Echo: EF 60%, Mild MR, Grade I LVDD, RVSP 15 mmHg Objective HEENT: Atraumatic and normocephalic. Anicteric. Dense bilateral cataracts. NECK: JVP less than 5 cm. No carotid bruit. Carotid upstrokes 2+ bilaterally. CARDIOVASCULAR: Normal S1, S2. Regular rate and rhythm. No murmurs, gallops, or rubs. PMI is at fourth intercostal space in midclavicular line. LUNGS: Clear to auscultation bilaterally. ABDOMEN: Soft, nontender, and nondistended. No hepatosplenomegaly. Positive bowel sounds. EXTREMITIES: No evidence of edema, clubbing, or cyanosis. Flavio Yanez MD Sep 30, 2017 23:08
[2017-10-01] VITALS: BP 141/84
[2017-10-01] MEDS: NovoLOG Insulin Flexpen SUBQ SCH ×4 (06:02→21:00)
[2017-10-01 08:00] VITALS: BP 121/70
[2017-10-01] MEDS: Heparin 5000 units/ml inj SUBQ SCH ×2 (08:53→20:39)
[2017-10-01] MEDS: sitaGLIPtin 25mg tab ORAL SCH (08:54)
[2017-10-01] MEDS: Aspirin EC 81mg tab ORAL SCH (08:54)
[2017-10-01 09:10] LABS: BASOPHILS % (AUTO) 1.7 % (0.0-2.0); EOSINOPHILS % (AUTO) 2.7 % (0.0-3.0); HEMATOCRIT 44.4 % (42.0-52.0); HEMOGLOBIN 15.3 G/DL (14.2-18.0); LYMPHOCYTES % (AUTO) 33.5 % (20.0-45.0); MEAN CORPUSCULAR VOLUME 90 FL (80-99); MONOCYTES % (AUTO) 10.7 % (1.0-10.0); NEUTROPHILS % (AUTO) 51.4 % (45.0-75.0); PLATELET COUNT 216 K/UL (150-450); RED BLOOD COUNT 4.93 M/UL (4.70-6.10); RED CELL DISTRIBUTION WIDTH 11.2 % (11.6-14.8); WHITE BLOOD COUNT 4.3 K/UL (4.8-10.8)
[2017-10-01 09:44] LABS: ANION GAP 7 mmol/L (5-15); BLOOD UREA NITROGEN 15 mg/dL (7-18); CALCIUM 9.1 MG/DL (8.5-10.1); CARBON DIOXIDE 28 MMOL/L (21-32); CHLORIDE 101 MMOL/L (98-107); CREATININE 0.9 MG/DL (0.55-1.30); POTASSIUM 3.6 MMOL/L (3.5-5.1); SODIUM 136 MMOL/L (136-145)
--- NOTE | 2017-10-01 10:46 | General Progress Note ---
Assessment/Plan Problem List: (1) Dizziness ICD Codes: R42 - Dizziness and giddiness SNOMED: 601375074, 246620052 (2) Suicidal ideation ICD Codes: R45.851 - Suicidal ideations SNOMED: 6307644 (3) Cataracts, bilateral ICD Codes: H26.9 - Unspecified cataract SNOMED: 75156114 Qualifiers: Qualified Codes: H26.9 - Unspecified cataract (4) Blindness ICD Codes: H54.7 - Unspecified visual loss SNOMED: 486675057 (5) Headache ICD Codes: R51 - Headache SNOMED: 62322002 Qualifiers: Qualified Codes: R51 - Headache Status: unchanged Assessment/Plan ot pt diet pain control neuro psyc f/u dc to snf if clear Subjective Constitutional: Reports: weakness Allergies: Coded Allergies: No Known Allergies (Unverified , 09/23/17) All Systems: reviewed and negative except above Subjective calm in bed sleepy Objective Last 24 Hour Vital Signs Date Time Temp Pulse Resp B/P (MAP) Pulse Ox O2 Delivery O2 Flow Rate FiO2 10/01/17 08:54 64 121/70 10/01/17 08:00 Room Air 10/01/17 08:00 98.1 64 19 121/70 (87) 96 98.1 10/01/17 00:00 98.1 58 18 141/84 (103) 95 98.1 09/30/17 21:00 Room Air 09/30/17 20:00 98.4 59 18 137/76 (96) 96 98.4 09/30/17 17:34 63 125/71 09/30/17 16:00 97.3 63 20 125/71 (89) 95 97.3 09/30/17 12:00 97.7 60 20 116/75 (89) 98 97.7 Intake and Output 09/30/17 10/01/17 19:00 07:00 Intake Total 220 ml Output Total 400 ml 2000 ml Balance -180 ml -2000 ml Intake Oral 220 ml Output Urine Total 400 ml 2000 ml # Voids 4 Laboratory Tests 10/01/17 08:30: White Blood Count 4.3L, Red Blood Count 4.93, Hemoglobin 15.3, Hematocrit 44.4, Mean Corpuscular Volume 90, Mean Corpuscular Hemoglobin 31.0, Mean Corpuscular Hemoglobin Concent 34.5, Red Cell Distribution Width 11.2L, Platelet Count 216, Mean Platelet Volume 9.0, Neutrophils (%) (Auto) 51.4, Lymphocytes (%) (Auto) 33.5, Monocytes (%) (Auto) 10.7H, Eosinophils (%) (Auto) 2.7, Basophils (%) ( Auto) 1.7, Sodium Level 136, Potassium Level 3.6, Chloride Level 101, Carbon Dioxide Level 28, Anion Gap 7, Blood Urea Nitrogen 15, Creatinine 0.9, Estimat Glomerular Filtration Rate , Glucose Level 142H, Calcium Level 9.1 Height (Feet): 5 Height (Inches): 4.00 Weight (Pounds): 142 General Appearance: lethargic EENT: normal ENT inspection Neck: normal alignment Cardiovascular: normal peripheral pulses, normal rate, regular rhythm Respiratory/Chest: chest wall non-tender, lungs clear, normal breath sounds Abdomen: normal bowel sounds, non tender, soft Extremities: normal inspection Edema: no edema noted Arm (L), no edema noted Arm (R), no edema noted Leg (L), no edema noted Leg (R), no edema noted Pedal (L), no edema noted Pedal (R), no edema noted Generalized Neurologic: motor weakness Skin: normal pigmentation, warm/dry Juan Montgomery DO Oct 01, 2017 10:46
[2017-10-01 12:00] VITALS: BP 110/74
--- NOTE | 2017-10-01 13:17 | Pulmonology Progress Note ---
Assessment/Plan Problems: (1) unable to care for himself (2) Cataracts, bilateral (3) Diabetes mellitus Assessment/Plan doing better all noted sliding sclae pt/ot evaluation dvt propylaxis dc planning Subjective ROS Limited/Unobtainable: No Constitutional: Reports: no symptoms HEENT: Repors: no symptoms Respiratory: Reports: no symptoms Allergies: Coded Allergies: No Known Allergies (Unverified , 09/23/17) Objective Last 24 Hour Vital Signs Date Time Temp Pulse Resp B/P (MAP) Pulse Ox O2 Delivery O2 Flow Rate FiO2 10/01/17 12:00 98.2 67 18 110/74 (86) 98 98.2 10/01/17 08:54 64 121/70 10/01/17 08:00 Room Air 10/01/17 08:00 98.1 64 19 121/70 (87) 96 98.1 10/01/17 00:00 98.1 58 18 141/84 (103) 95 98.1 09/30/17 21:00 Room Air 09/30/17 20:00 98.4 59 18 137/76 (96) 96 98.4 09/30/17 17:34 63 125/71 09/30/17 16:00 97.3 63 20 125/71 (89) 95 97.3 Intake and Output 09/30/17 10/01/17 19:00 07:00 Intake Total 220 ml Output Total 400 ml 2000 ml Balance -180 ml -2000 ml Intake Oral 220 ml Output Urine Total 400 ml 2000 ml # Voids 4 Objective General Appearance: WD/WN Lines, tubes and drains: peripheral, central line HEENT: normocephalic, atraumatic Neck: non-tender, normal alignment Respiratory/Chest: chest wall non-tender, lungs clear Breasts: no masses Cardiovascular/Chest: normal peripheral pulses Abdomen: normal bowel sounds Genitourinary/Rectal: normal genital exam, normal prostate exam Extremities: normal range of motion Laboratory Tests 10/01/17 08:30: White Blood Count 4.3L, Red Blood Count 4.93, Hemoglobin 15.3, Hematocrit 44.4, Mean Corpuscular Volume 90, Mean Corpuscular Hemoglobin 31.0, Mean Corpuscular Hemoglobin Concent 34.5, Red Cell Distribution Width 11.2L, Platelet Count 216, Mean Platelet Volume 9.0, Neutrophils (%) (Auto) 51.4, Lymphocytes (%) (Auto) 33.5, Monocytes (%) (Auto) 10.7H, Eosinophils (%) (Auto) 2.7, Basophils (%) ( Auto) 1.7, Sodium Level 136, Potassium Level 3.6, Chloride Level 101, Carbon Dioxide Level 28, Anion Gap 7, Blood Urea Nitrogen 15, Creatinine 0.9, Estimat Glomerular Filtration Rate , Glucose Level 142H, Calcium Level 9.1 Current Medications Medications (Trade) Dose Ordered Sig/Cornelius Route PRN Reason Start Time Stop Time Status Last Admin Dose Admin Acetaminophen (Tylenol) 650 mg Q4H PRN ORAL fever (temp>100.5F) 09/23/17 18:00 10/23/17 17:59 Al Hydroxide/Mg Hydroxide (Mylanta II) 30 ml Q6H PRN ORAL dyspepsia 09/23/17 18:00 10/23/17 17:59 Amlodipine Besylate (Norvasc) 2.5 mg BID ORAL 09/27/17 09:00 10/27/17 08:59 10/01/17 08:54 Aspirin (Ecotrin) 81 mg DAILY ORAL 09/26/17 09:00 10/26/17 08:59 10/01/17 08:54 Atorvastatin Calcium (Lipitor) 40 mg BEDTIME ORAL 09/27/17 21:00 10/24/17 20:59 09/30/17 20:39 Clonidine HCl (Catapres Tab) 0.1 mg Q4H PRN ORAL For High Blood Pressure 09/23/17 18:00 10/23/17 17:59 09/26/17 19:20 Dextrose (Dextrose 50%) 25 ml STAT PRN IV Hypoglycemia 09/23/17 18:00 10/23/17 17:59 Dextrose (Dextrose 50%) 50 ml STAT PRN IV Hypoglycemia 09/23/17 18:00 10/23/17 17:59 Fluoxetine HCl (PROzac) 20 mg DAILY ORAL 09/28/17 09:00 10/28/17 08:59 10/01/17 08:54 Haloperidol Lactate (Haldol) 5 mg Q4H PRN IM Agitation 09/25/17 17:47 10/25/17 17:29 09/27/17 21:51 Heparin Sodium (Porcine) (Heparin 5000 units/ml) 5,000 units EVERY 12 HOURS SUBQ 09/23/17 21:00 10/23/17 20:59 10/01/17 08:53 Insulin Aspart (NovoLOG) BEFORE MEALS AND HS SUBQ 09/23/17 21:00 10/23/17 20:59 09/29/17 11:56 Nitroglycerin (Ntg) 0.4 mg Q5M X 3 DOSES PRN SL Prn Chest Pain 09/23/17 18:00 10/23/17 17:59 Ondansetron HCl (Zofran) 4 mg Q6H PRN IVP Nausea & Vomiting 09/23/17 18:00 10/23/17 17:59 Polyethylene Glycol (Miralax) 17 gm HSPRN PRN ORAL Constipation 09/23/17 18:00 10/23/17 17:59 Quetiapine Fumarate (SEROquel) 25 mg Q4H PRN ORAL Agitation 09/25/17 17:30 10/25/17 17:29 Sitagliptin Phosphate (Januvia) 25 mg DAILY ORAL 09/24/17 09:00 10/24/17 08:59 10/01/17 08:54 Temazepam (Restoril) 15 mg HSPRN PRN ORAL Insomnia 09/26/17 23:45 10/03/17 23:44 Jesus Pichardo MD Oct 01, 2017 13:17
--- NOTE | 2017-10-01 13:20 | General Progress Note ---
Assessment/Plan Assessment/Plan Adjustment Disorder Anxiety -ativan prn -the pt is not hold-able and not at imminent dts/dto -dc home vs sniff Subjective Date patient seen: Oct 01, 2017 Neurologic/Psychiatric: Reports: anxiety, depressed, emotional problems Allergies: Coded Allergies: No Known Allergies (Unverified , 09/23/17) Subjective denied si/hi Objective Last 24 Hour Vital Signs Date Time Temp Pulse Resp B/P (MAP) Pulse Ox O2 Delivery O2 Flow Rate FiO2 10/01/17 12:00 98.2 67 18 110/74 (86) 98 98.2 10/01/17 08:54 64 121/70 10/01/17 08:00 Room Air 10/01/17 08:00 98.1 64 19 121/70 (87) 96 98.1 10/01/17 00:00 98.1 58 18 141/84 (103) 95 98.1 09/30/17 21:00 Room Air 09/30/17 20:00 98.4 59 18 137/76 (96) 96 98.4 09/30/17 17:34 63 125/71 09/30/17 16:00 97.3 63 20 125/71 (89) 95 97.3 Intake and Output 09/30/17 10/01/17 19:00 07:00 Intake Total 220 ml Output Total 400 ml 2000 ml Balance -180 ml -2000 ml Intake Oral 220 ml Output Urine Total 400 ml 2000 ml # Voids 4 Laboratory Tests 10/01/17 08:30: White Blood Count 4.3L, Red Blood Count 4.93, Hemoglobin 15.3, Hematocrit 44.4, Mean Corpuscular Volume 90, Mean Corpuscular Hemoglobin 31.0, Mean Corpuscular Hemoglobin Concent 34.5, Red Cell Distribution Width 11.2L, Platelet Count 216, Mean Platelet Volume 9.0, Neutrophils (%) (Auto) 51.4, Lymphocytes (%) (Auto) 33.5, Monocytes (%) (Auto) 10.7H, Eosinophils (%) (Auto) 2.7, Basophils (%) ( Auto) 1.7, Sodium Level 136, Potassium Level 3.6, Chloride Level 101, Carbon Dioxide Level 28, Anion Gap 7, Blood Urea Nitrogen 15, Creatinine 0.9, Estimat Glomerular Filtration Rate , Glucose Level 142H, Calcium Level 9.1 Height (Feet): 5 Height (Inches): 4.00 Weight (Pounds): 142 Cynthia Marvin MD Oct 01, 2017 13:20
--- NOTE | 2017-10-01 15:13 | Neurology Progress Note ---
Interim History Interim History Interim History Mr. Galeano feels better. He is sitting up in chair enjoying the company of one of his friends who has come to visit him. His vision is still extremely poor. He is unable to see anything other than bright light in his right eye. He denies any new neurologic symptoms. He has not been seen by an Environmental Auditor yet. Review of Systems Neuro Review of Systems Benign. Objective Physical Exam Last Vital Signs Date Time Temp Pulse Resp B/P (MAP) Pulse Ox O2 Delivery O2 Flow Rate FiO2 10/01/17 12:00 98.2 67 18 110/74 (86) 98 98.2 10/01/17 08:00 Room Air 09/27/17 17:48 21 Laboratory Tests Test 10/01/17 08:30 White Blood Count 4.3 K/UL (4.8-10.8) L Red Blood Count 4.93 M/UL (4.70-6.10) Hemoglobin 15.3 G/DL (14.2-18.0) Hematocrit 44.4 % (42.0-52.0) Mean Corpuscular Volume 90 FL (80-99) Mean Corpuscular Hemoglobin 31.0 PG (27.0-31.0) Mean Corpuscular Hemoglobin Concent 34.5 G/DL (32.0-36.0) Red Cell Distribution Width 11.2 % (11.6-14.8) L Platelet Count 216 K/UL (150-450) Mean Platelet Volume 9.0 FL (6.5-10.1) Neutrophils (%) (Auto) 51.4 % (45.0-75.0) Lymphocytes (%) (Auto) 33.5 % (20.0-45.0) Monocytes (%) (Auto) 10.7 % (1.0-10.0) H Eosinophils (%) (Auto) 2.7 % (0.0-3.0) Basophils (%) (Auto) 1.7 % (0.0-2.0) Sodium Level 136 MMOL/L (136-145) Potassium Level 3.6 MMOL/L (3.5-5.1) Chloride Level 101 MMOL/L (98-107) Carbon Dioxide Level 28 MMOL/L (21-32) Anion Gap 7 mmol/L (5-15) Blood Urea Nitrogen 15 mg/dL (7-18) Creatinine 0.9 MG/DL (0.55-1.30) Estimat Glomerular Filtration Rate mL/min (>60) Glucose Level 142 MG/DL (74-106) H Calcium Level 9.1 MG/DL (8.5-10.1) Neurologic Exam Objective PHYSICAL EXAMINATION: GENERAL: He is a well-developed, well-nourished, pleasant gentleman, lying in bed, in no acute distress. HEAD: Normocephalic and atraumatic. EENT: Examination, benign NECK: No neck rigidity was observed. NEUROLOGIC EXAMINATION: MENTAL STATUS EXAMINATION: He was awake and alert. He was oriented to [place] [facility] [place], but did not know the exact date. He was able to recall 3/3 words immediately, but could only remember 2/3 words in 1 minute and 3 minutes. He was able to remember presidents, Trump and Obama, but could not remember presidents prior to that. His mathematical skills were impaired. His visuospatial function was also impaired. SPEECH: He had no dysarthria. LANGUAGE: Could not be tested adequately because of his poor educational level. CRANIAL NERVE EXAMINATION: II: He was able to discern light in the right eye, but not in the left eye. III, IV & : The right pupil was 3 mm and constricted to 2.5 mm with light. The left pupil was 3 mm and did not react to light. The external ocular movements were full when the patient was told to move his eyes to either side, up and down. V: He had normal facial sensations and the temporales, masseters, and pterygoids functioned normally. VII: He had normal facial expressions, and no facial asymmetry. VIII: He was able to hear well and had no nystagmus, IX: The palate moved symmetrically on phonation. X: He had no hoarseness of voice. XI: The sternocleidomastoids and trapezii functioned normally. XII: The tongue was in the midline without any fasciculations or atrophy. MOTOR SYSTEM: The tone was normal in all four extremities. Examination of muscle mass revealed no focal wasting. Examination of power revealed G 5/5 power and all muscle groups tested. SENSORY EXAMINATION: He had intact sensations to pinprick, light touch, and graphesthesia. COORDINATION: He performed well on [id number] and [id number]-dy-[id number] testing. REFLEXES: Trace+ and bilaterally symmetrical at the biceps, triceps, brachioradialis, and knees. 0 at both ankles. The plantar responses were flexor bilaterally. STANCE & GAIT: He was able to stand and take a few steps with support. Impression/Recommendations Diagnostic Impression 1. Mr. 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 2. He feels better. He is sitting up in chair enjoying the company of one of his friends who has come to visit him. His vision is still extremely poor. He is unable to see anything other than bright light in his right eye. He denies any new neurologic symptoms. He has not been seen by an Environmental Auditor yet. 3. On neurological examination, at this time, he is disoriented to the name of the hospital and the exact date. He does have problems with recent and remote memory, visuospatial function, and higher cognitive function. The right pupil constricts to light whereas the left does not. In addition, all he is able to see is light in his right eye. His motor power is good. His sensory function is preserved. His deep tendon reflexes are globally diminished. He is able to stand and walk with support. 4. His latest laboratory data revealed a relatively normal CBC, relatively normal chemistry panel, normal TSH, and normal urinalysis. 5. The MRI scan of the brain performed on 09/22/2017 revealed tiny lacunar infarcts in the bilateral cerebral peduncles, a tiny infarct in the greta right of the midline and in addition, periventricular deep white matter changes consistent with chronic ischemic disease. However, no acute pathology was seen. 6. 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 The loss of vision in the left eye is also most probably due to ocular pathology. Recommendations 1. Continue present management. 2. Continue treating the patient's high blood pressure, diabetes mellitus, and dyslipidemia. 3. An ophthalmological evaluation should be obtained as soon as possible to see if the patient has a treatable visual loss. 4. The patient should be encouraged to stay physically active. Edi Cleaning M.D., M.S.P.[facility] [employer] Oct 01, 2017 15:13
[2017-10-01 16:00] VITALS: BP 121/76
--- NOTE | 2017-10-01 17:24 | Cardiology Progress Note ---
Assessment/Plan Assessment/Plan 1. Accelerated hypertension, on amlodipine, LVEF at 60%. 2. Sinus bradycardia, asymptomatic. No treatment is required. 3. History of diabetes mellitus, continue ASA and atorvastatin. 4. Blindness. 5. Dyslipidemia with elevated LDL, continue atorvastatin. Subjective Subjective No cardiac events. Denies chest pain or SOB. Objective Last 24 Hour Vital Signs Date Time Temp Pulse Resp B/P (MAP) Pulse Ox O2 Delivery O2 Flow Rate FiO2 10/01/17 16:00 97.4 70 20 121/76 (91) 99 97.4 10/01/17 12:00 98.2 67 18 110/74 (86) 98 98.2 10/01/17 08:54 64 121/70 10/01/17 08:00 Room Air 10/01/17 08:00 98.1 64 19 121/70 (87) 96 98.1 10/01/17 00:00 98.1 58 18 141/84 (103) 95 98.1 09/30/17 21:00 Room Air 09/30/17 20:00 98.4 59 18 137/76 (96) 96 98.4 09/30/17 17:34 63 125/71 Intake and Output 09/30/17 10/01/17 19:00 07:00 Intake Total 220 ml Output Total 400 ml 2000 ml Balance -180 ml -2000 ml Intake Oral 220 ml Output Urine Total 400 ml 2000 ml # Voids 4 2D Echo: EF 60%, Mild MR, Grade I LVDD, RVSP 15 mmHg Laboratory Tests Test 10/01/17 08:30 White Blood Count 4.3 K/UL (4.8-10.8) L Red Blood Count 4.93 M/UL (4.70-6.10) Hemoglobin 15.3 G/DL (14.2-18.0) Hematocrit 44.4 % (42.0-52.0) Mean Corpuscular Volume 90 FL (80-99) Mean Corpuscular Hemoglobin 31.0 PG (27.0-31.0) Mean Corpuscular Hemoglobin Concent 34.5 G/DL (32.0-36.0) Red Cell Distribution Width 11.2 % (11.6-14.8) L Platelet Count 216 K/UL (150-450) Mean Platelet Volume 9.0 FL (6.5-10.1) Neutrophils (%) (Auto) 51.4 % (45.0-75.0) Lymphocytes (%) (Auto) 33.5 % (20.0-45.0) Monocytes (%) (Auto) 10.7 % (1.0-10.0) H Eosinophils (%) (Auto) 2.7 % (0.0-3.0) Basophils (%) (Auto) 1.7 % (0.0-2.0) Sodium Level 136 MMOL/L (136-145) Potassium Level 3.6 MMOL/L (3.5-5.1) Chloride Level 101 MMOL/L (98-107) Carbon Dioxide Level 28 MMOL/L (21-32) Anion Gap 7 mmol/L (5-15) Blood Urea Nitrogen 15 mg/dL (7-18) Creatinine 0.9 MG/DL (0.55-1.30) Estimat Glomerular Filtration Rate mL/min (>60) Glucose Level 142 MG/DL (74-106) H Calcium Level 9.1 MG/DL (8.5-10.1) Objective HEENT: Atraumatic and normocephalic. Anicteric. Dense bilateral cataracts. NECK: JVP less than 5 cm. No carotid bruit. Carotid upstrokes 2+ bilaterally. CARDIOVASCULAR: Normal S1, S2. Regular rate and rhythm. No murmurs, gallops, or rubs. PMI is at fourth intercostal space in midclavicular line. LUNGS: Clear to auscultation bilaterally. ABDOMEN: Soft, nontender, and nondistended. No hepatosplenomegaly. Positive bowel sounds. EXTREMITIES: No evidence of edema, clubbing, or cyanosis. Flavio Yanez MD Oct 01, 2017 17:24
[2017-10-01 20:00] VITALS: BP 115/69
[2017-10-01] MEDS: Atorvastatin 20mg tab ORAL SCH (20:38)
[2017-10-02 00:22] VITALS: BP 119/70
[2017-10-02 04:00] VITALS: BP 128/73
[2017-10-02] MEDS: NovoLOG Insulin Flexpen SUBQ SCH ×4 (06:30→21:00)
[2017-10-02 08:00] VITALS: BP 116/71
[2017-10-02] MEDS: Aspirin EC 81mg tab ORAL SCH (08:35)
[2017-10-02] MEDS: sitaGLIPtin 25mg tab ORAL SCH (08:35)
[2017-10-02] MEDS: Heparin 5000 units/ml inj SUBQ SCH ×2 (08:36→20:15)
--- NOTE | 2017-10-02 11:13 | General Progress Note ---
Assessment/Plan Status: stable Assessment/Plan INTERNAL MEDICINE PROGRESS NOTE Covering for Dr. Montgomery # Dizziness --> Neuro f/u # Cataracts bilat # Headache --> Pt on pain control # Blindness --> To be seen by mate fishing vessel Subjective Date patient seen: Oct 02, 2017 ROS Limited/Unobtainable: Yes Allergies: Coded Allergies: No Known Allergies (Unverified , 09/23/17) All Systems: reviewed and negative except above Subjective Pt awake and alert. No acute events. WBC trending downwards. Vitals are stable. Objective Last 24 Hour Vital Signs Date Time Temp Pulse Resp B/P (MAP) Pulse Ox O2 Delivery O2 Flow Rate FiO2 10/02/17 09:00 60 116/71 10/02/17 09:00 Room Air 10/02/17 08:00 98.4 60 18 116/71 (86) 96 98.4 10/02/17 04:00 98.0 58 17 128/73 (91) 97 98.0 10/02/17 00:22 98.1 86 16 119/70 (86) 97 98.1 10/01/17 21:00 Room Air 10/01/17 20:00 98.3 55 17 115/69 (84) 99 98.3 10/01/17 17:23 70 121/76 10/01/17 16:00 97.4 70 20 121/76 (91) 99 97.4 10/01/17 12:00 98.2 67 18 110/74 (86) 98 98.2 Intake and Output 10/01/17 10/02/17 19:00 07:00 Intake Total 1270 ml 600 ml Output Total 800 ml 1100 ml Balance 470 ml -500 ml Intake Oral 1270 ml 600 ml Output Urine Total 800 ml 1100 ml Height (Feet): 5 Height (Inches): 4.00 Weight (Pounds): 142 General Appearance: no apparent distress, alert EENT: PERRL/EOMI Neck: normal alignment Cardiovascular: normal peripheral pulses Respiratory/Chest: no respiratory distress Abdomen: soft Hermes Carranza MD Oct 02, 2017 11:13
[2017-10-02 12:00] VITALS: BP 122/70
--- NOTE | 2017-10-02 15:38 | Neurology Progress Note ---
Interim History Interim History Interim History Mr. Galeano feels well. He is sitting up in a chair. His vision is still extremely poor. He is unable to see anything other than bright light in his right eye. He denies any new neurologic symptoms. He has not been seen by an Fisheries Manager yet. Review of Systems Neuro Review of Systems Benign. Objective Physical Exam Last Vital Signs Date Time Temp Pulse Resp B/P (MAP) Pulse Ox O2 Delivery O2 Flow Rate FiO2 10/02/17 12:00 98.5 59 18 122/70 (87) 97 98.5 10/02/17 09:00 Room Air 09/27/17 17:48 21 Neurologic Exam Objective PHYSICAL EXAMINATION: GENERAL: He is a well-developed, well-nourished, pleasant gentleman, lying in bed, in no acute distress. HEAD: Normocephalic and atraumatic. EENT: Examination, benign NECK: No neck rigidity was observed. NEUROLOGIC EXAMINATION: MENTAL STATUS EXAMINATION: He was awake and alert. He was oriented to self, [facility] and September 2017, but did not know the exact date. He was able to recall 3/3 words immediately, but could only remember 2/3 words in 1 minute and 3 minutes. He was able to remember presidents, Trump and Obama, but could not remember presidents prior to that. His mathematical skills were impaired. His visuospatial function was also impaired. SPEECH: He had no dysarthria. LANGUAGE: Could not be tested adequately because of his poor educational level. CRANIAL NERVE EXAMINATION: II: He was able to discern light in the right eye, but not in the left eye. III, IV & : The right pupil was 3 mm and constricted to 2.5 mm with light. The left pupil was 3 mm and did not react to light. The external ocular movements were full when the patient was told to move his eyes to either side, up and down. V: He had normal facial sensations and the temporales, masseters, and pterygoids functioned normally. VII: He had normal facial expressions, and no facial asymmetry. VIII: He was able to hear well and had no nystagmus, IX: The palate moved symmetrically on phonation. X: He had no hoarseness of voice. XI: The sternocleidomastoids and trapezii functioned normally. XII: The tongue was in the midline without any fasciculations or atrophy. MOTOR SYSTEM: The tone was normal in all four extremities. Examination of muscle mass revealed no focal wasting. Examination of power revealed G 5/5 power and all muscle groups tested. SENSORY EXAMINATION: He had intact sensations to pinprick, light touch, and graphesthesia. COORDINATION: He performed well on [id number] and [id number] testing. REFLEXES: Trace+ and bilaterally symmetrical at the biceps, triceps, brachioradialis, and knees. 0 at both ankles. The plantar responses were flexor bilaterally. STANCE & GAIT: He was able to stand and walk well with support. Impression/Recommendations Diagnostic Impression 1. Mr. 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 2. He feels well. He is sitting up in a chair. His vision is still extremely poor. He is unable to see anything other than bright light in his right eye. He denies any new neurologic symptoms. He has not been seen by an Fisheries Manager yet. 3. On neurological examination, at this time, he is disoriented to the name of the hospital and the exact date. He does have problems with recent and remote memory, visuospatial function, and higher cognitive function. The right pupil constricts to light whereas the left does not. In addition, all he is able to see is light in his right eye. His motor power is good. His sensory function is preserved. His deep tendon reflexes are globally diminished. He is able to stand and walk with support. 4. His latest laboratory data revealed a relatively normal CBC, relatively normal chemistry panel, normal TSH, and normal urinalysis. 5. The MRI scan of the brain performed on 09/22/2017 revealed tiny lacunar infarcts in the bilateral cerebral peduncles, a tiny infarct in the greta right of the midline and in addition, periventricular deep white matter changes consistent with chronic ischemic disease. However, no acute pathology was seen. 6. 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 The loss of vision in the left eye is also most probably due to ocular pathology. Recommendations 1. Continue present management. 2. Continue treating the patient's high blood pressure, diabetes mellitus, and dyslipidemia. 3. An ophthalmological evaluation should be obtained as soon as possible to see if the patient has a treatable visual loss. 4. The patient should be encouraged to stay physically active. Edi Cleaning M.D., M.S.P.H[facility] [employer] Oct 02, 2017 15:38
--- NOTE | 2017-10-02 15:53 | Cardiology Progress Note ---
Assessment/Plan Assessment/Plan 1. Accelerated hypertension, on amlodipine, LVEF at 60%. 2. Sinus bradycardia, asymptomatic. No treatment is required. 3. History of diabetes mellitus, continue ASA and atorvastatin. 4. Dyslipidemia with elevated LDL, continue atorvastatin. Subjective Subjective No cardiac events. No chest pain or SOB. Objective Last 24 Hour Vital Signs Date Time Temp Pulse Resp B/P (MAP) Pulse Ox O2 Delivery O2 Flow Rate FiO2 10/02/17 12:00 98.5 59 18 122/70 (87) 97 98.5 10/02/17 09:00 60 116/71 10/02/17 09:00 Room Air 10/02/17 08:00 98.4 60 18 116/71 (86) 96 98.4 10/02/17 04:00 98.0 58 17 128/73 (91) 97 98.0 10/02/17 00:22 98.1 86 16 119/70 (86) 97 98.1 10/01/17 21:00 Room Air 10/01/17 20:00 98.3 55 17 115/69 (84) 99 98.3 10/01/17 17:23 70 121/76 10/01/17 16:00 97.4 70 20 121/76 (91) 99 97.4 Intake and Output 10/01/17 10/02/17 19:00 07:00 Intake Total 1270 ml 600 ml Output Total 800 ml 1100 ml Balance 470 ml -500 ml Intake Oral 1270 ml 600 ml Output Urine Total 800 ml 1100 ml 2D Echo: EF 60%, Mild MR, Grade I LVDD, RVSP 15 mmHg Objective HEENT: Atraumatic and normocephalic. Anicteric. Dense bilateral cataracts. NECK: JVP less than 5 cm. No carotid bruit. Carotid upstrokes 2+ bilaterally. CARDIOVASCULAR: Normal S1, S2. Regular rate and rhythm. No murmurs, gallops, or rubs. PMI is at fourth intercostal space in midclavicular line. LUNGS: Clear to auscultation bilaterally. ABDOMEN: Soft, nontender, and nondistended. No hepatosplenomegaly. Positive bowel sounds. EXTREMITIES: No evidence of edema, clubbing, or cyanosis. Flavio Yanez MD Oct 02, 2017 15:53
[2017-10-02 16:00] VITALS: BP 111/88
[2017-10-02 20:00] VITALS: BP 100/55
[2017-10-02] MEDS: Atorvastatin 20mg tab ORAL SCH (20:11)
[2017-10-03] VITALS: BP 139/94
[2017-10-03 04:00] VITALS: BP 128/91
[2017-10-03] MEDS: NovoLOG Insulin Flexpen SUBQ SCH ×4 (06:30→20:51)
[2017-10-03 08:00] VITALS: BP 121/69
[2017-10-03] MEDS: Aspirin EC 81mg tab ORAL SCH (10:09)
[2017-10-03] MEDS: sitaGLIPtin 25mg tab ORAL SCH (10:09)
[2017-10-03] MEDS: Heparin 5000 units/ml inj SUBQ SCH ×2 (10:12→20:53)
[2017-10-03 12:00] VITALS: BP 122/71
--- NOTE | 2017-10-03 12:49 | Neurology Progress Note ---
Interim History Interim History Interim History Mr. Galeano feels well. He is sitting up in a chair enjoying his lunch. His vision is still extremely poor. He is unable to see anything other than bright light in his right eye. He denies any new neurologic symptoms. He has not been seen by an Developer [employer] yet. Review of Systems Neuro Review of Systems Benign. Objective Physical Exam Last Vital Signs Date Time Temp Pulse Resp B/P (MAP) Pulse Ox O2 Delivery O2 Flow Rate FiO2 10/03/17 10:08 57 121/69 10/03/17 09:00 Room Air 10/03/17 08:00 97.2 20 97 97.2 09/27/17 17:48 21 Neurologic Exam Objective PHYSICAL EXAMINATION: GENERAL: He is a well-developed, well-nourished, pleasant gentleman, sitting up in a chair, in no acute distress. HEAD: Normocephalic and atraumatic. EENT: Examination benign NECK: No neck rigidity was observed. NEUROLOGIC EXAMINATION: MENTAL STATUS EXAMINATION: He was awake and alert. He was oriented to self, [facility] and September 2017, but did not know the exact date. He was able to recall 3/3 words immediately, but could only remember 2/3 words in 1 minute and 3 minutes. He was able to remember presidents, Trump and Obama, but could not remember presidents prior to that. His mathematical skills were impaired. His visuospatial function was also impaired. SPEECH: He had no dysarthria. LANGUAGE: Could not be tested adequately because of his poor educational level. CRANIAL NERVE EXAMINATION: II: He was able to discern light in the right eye, but not in the left eye. III, IV & : The right pupil was 3 mm and constricted to 2.5 mm with light. The left pupil was 3 mm and did not react to light. The external ocular movements were full when the patient was told to move his eyes to either side, up and down. V: He had normal facial sensations and the temporales, masseters, and pterygoids functioned normally. VII: He had normal facial expressions, and no facial asymmetry. VIII: He was able to hear well and had no nystagmus, IX: The palate moved symmetrically on phonation. X: He had no hoarseness of voice. XI: The sternocleidomastoids and trapezii functioned normally. XII: The tongue was in the midline without any fasciculations or atrophy. MOTOR SYSTEM: The tone was normal in all four extremities. Examination of muscle mass revealed no focal wasting. Examination of power revealed G 5/5 power and all muscle groups tested. SENSORY EXAMINATION: He had intact sensations to pinprick, light touch, and graphesthesia. COORDINATION: He performed well on [id number]-bt-vxlhvo and igaz-pb-dldm testing. REFLEXES: Trace+ and bilaterally symmetrical at the biceps, triceps, brachioradialis, and knees. 0 at both ankles. The plantar responses were flexor bilaterally. STANCE & GAIT: He was able to stand and walk well with support. Impression/Recommendations Diagnostic Impression 1. Mr. 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 2. He feels well. He is sitting up in a chair enjoying his lunch. His vision is still extremely poor. He is unable to see anything other than bright light in his right eye. He denies any new neurologic symptoms. He has not been seen by an Developer [employer] yet. 3. On neurological examination, at this time, he is disoriented to the name of the hospital and the exact date. He does have problems with recent and remote memory, visuospatial function, and higher cognitive function. The right pupil constricts to light whereas the left does not. In addition, all he is able to see is light in his right eye. His motor power is good. His sensory function is preserved. His deep tendon reflexes are globally diminished. He is able to stand and walk with support. 4. His latest laboratory data revealed a relatively normal CBC, relatively normal chemistry panel, normal TSH, and normal urinalysis. 5. The MRI scan of the brain performed on 09/22/2017 revealed tiny lacunar infarcts in the bilateral cerebral peduncles, a tiny infarct in the greta right of the midline and in addition, periventricular deep white matter changes consistent with chronic ischemic disease. However, no acute pathology was seen. 6. 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 The loss of vision in the left eye is also most probably due to ocular pathology. Recommendations 1. Continue present management. 2. Continue treating the patient's high blood pressure, diabetes mellitus, and dyslipidemia. 3. An ophthalmological evaluation should be obtained as soon as possible to see if the patient has a treatable visual loss. 4. The patient should be encouraged to stay physically active. Edi Cleaning M.D., M.S.P.[facility] [employer] Oct 03, 2017 12:49
[2017-10-03 16:00] VITALS: BP 135/85
--- NOTE | 2017-10-03 16:54 | General Progress Note ---
Assessment/Plan Status: stable Assessment/Plan INTERNAL MEDICINE PROGRESS NOTE Covering for Dr. Montgomery # Headache. Pt on pain control # Blindness. To be seen by anodizing line operator # History of diabetes mellitus, continue ASA and atorvastatin. # Dyslipidemia with elevated LDL, continue atorvastatin. # Dizziness. Neuro f/u # Cataracts bilat Subjective Date patient seen: Oct 03, 2017 ROS Limited/Unobtainable: Yes Allergies: Coded Allergies: No Known Allergies (Unverified , 09/23/17) All Systems: reviewed and negative except above Subjective Pt awake and alert. No acute events. Vitals are stable. Objective Last 24 Hour Vital Signs Date Time Temp Pulse Resp B/P (MAP) Pulse Ox O2 Delivery O2 Flow Rate FiO2 10/03/17 12:00 97.2 62 20 122/71 (88) 96 97.2 10/03/17 10:08 57 121/69 10/03/17 09:00 Room Air 10/03/17 08:00 97.2 57 20 121/69 (86) 97 97.2 10/03/17 04:00 97.0 66 20 128/91 (103) 99 97.0 10/03/17 00:00 97.3 71 20 139/94 (109) 98 97.3 10/02/17 21:00 Room Air 10/02/17 20:00 97.5 56 20 100/55 (70) 98 97.5 10/02/17 17:39 64 108/76 Intake and Output 10/02/17 10/03/17 19:00 07:00 Intake Total 900 ml Output Total 350 ml 950 ml Balance 550 ml -950 ml Intake Oral 900 ml Output Urine Total 350 ml 950 ml # Voids 4 # Bowel Movements 1 Height (Feet): 5 Height (Inches): 4.00 Weight (Pounds): 142 General Appearance: no apparent distress, alert EENT: PERRL/EOMI Neck: normal alignment Cardiovascular: normal peripheral pulses Respiratory/Chest: no respiratory distress Abdomen: soft Hermes Carranza MD Oct 03, 2017 16:54
[2017-10-03 20:00] VITALS: BP 108/69
[2017-10-03] MEDS: Atorvastatin 20mg tab ORAL SCH (20:51)
--- NOTE | 2017-10-03 23:08 | Cardiology Progress Note ---
Assessment/Plan Assessment/Plan 1. Accelerated hypertension, continue amlodipine, LVEF at 60%. 2. Sinus bradycardia, resolved, asymptomatic. No treatment is required. 3. History of diabetes mellitus, continue ASA and atorvastatin. 4. Dyslipidemia with elevated LDL, continue atorvastatin. Subjective Subjective No cardiac events. No on the tele bed. Objective Last 24 Hour Vital Signs Date Time Temp Pulse Resp B/P (MAP) Pulse Ox O2 Delivery O2 Flow Rate FiO2 10/03/17 21:03 Room Air 10/03/17 20:00 98.4 67 20 108/69 (82) 97 98.4 10/03/17 17:29 77 135/85 10/03/17 16:00 97.5 77 20 135/85 (102) 97 97.5 10/03/17 12:00 97.2 62 20 122/71 (88) 96 97.2 10/03/17 10:08 57 121/69 10/03/17 09:00 Room Air 10/03/17 08:00 97.2 57 20 121/69 (86) 97 97.2 10/03/17 04:00 97.0 66 20 128/91 (103) 99 97.0 10/03/17 00:00 97.3 71 20 139/94 (109) 98 97.3 Intake and Output 10/02/17 10/03/17 19:00 07:00 Intake Total 900 ml Output Total 350 ml 950 ml Balance 550 ml -950 ml Intake Oral 900 ml Output Urine Total 350 ml 950 ml # Voids 4 # Bowel Movements 1 2D Echo: EF 60%, Mild MR, Grade I LVDD, RVSP 15 mmHg Objective HEENT: Atraumatic and normocephalic. Anicteric. Dense bilateral cataracts. NECK: JVP less than 5 cm. No carotid bruit. Carotid upstrokes 2+ bilaterally. CARDIOVASCULAR: Normal S1, S2. Regular rate and rhythm. No murmurs, gallops, or rubs. PMI is at fourth intercostal space in midclavicular line. LUNGS: Clear to auscultation bilaterally. ABDOMEN: Soft, nontender, and nondistended. No hepatosplenomegaly. Positive bowel sounds. EXTREMITIES: No evidence of edema, clubbing, or cyanosis. Flavio Yanez MD Oct 03, 2017 23:08
[2017-10-04 04:00] VITALS: BP 128/83
[2017-10-04] MEDS: NovoLOG Insulin Flexpen SUBQ SCH ×2 (06:30→11:30)
[2017-10-04 08:00] VITALS: BP 111/72
[2017-10-04] MEDS: Aspirin EC 81mg tab ORAL SCH (08:15)
[2017-10-04] MEDS: sitaGLIPtin 25mg tab ORAL SCH (08:15)
[2017-10-04] MEDS: Heparin 5000 units/ml inj SUBQ SCH (08:17)
[2017-10-04 12:00] VITALS: BP 115/73
--- NOTE | 2017-10-04 14:00 | General Progress Note ---
Assessment/Plan Status: stable Assessment/Plan INTERNAL MEDICINE PROGRESS NOTE Covering for Dr. Montgomery # Headache. Pt on pain control # Blindness. To be seen by bufferer # History of diabetes mellitus, continue ASA and atorvastatin. # Dyslipidemia with elevated LDL, continue atorvastatin. # Dizziness. Neuro f/u # Cataracts bilat. Subjective Date patient seen: Oct 04, 2017 ROS Limited/Unobtainable: Yes Allergies: Coded Allergies: No Known Allergies (Unverified , 09/23/17) All Systems: reviewed and negative except above Subjective Pt awake and alert. No acute events. Vitals are stable. DC planning. Objective Last 24 Hour Vital Signs Date Time Temp Pulse Resp B/P (MAP) Pulse Ox O2 Delivery O2 Flow Rate FiO2 10/04/17 12:00 98.3 65 18 115/73 (87) 97 98.3 10/04/17 09:00 Room Air 10/04/17 08:15 61 111/72 10/04/17 08:00 97.3 61 20 111/72 (85) 98 97.3 10/04/17 04:00 97.2 66 20 128/83 (98) 98 97.2 10/03/17 21:03 Room Air 10/03/17 20:00 98.4 67 20 108/69 (82) 97 98.4 10/03/17 17:29 77 135/85 10/03/17 16:00 97.5 77 20 135/85 (102) 97 97.5 Intake and Output 10/03/17 10/04/17 19:00 07:00 Intake Total 240 ml 1080 ml Output Total 630 ml Balance 240 ml 450 ml Intake Oral 240 ml 1080 ml Output Urine Total 630 ml # Voids 3 4 # Bowel Movements 1 Height (Feet): 5 Height (Inches): 4.00 Weight (Pounds): 142 General Appearance: no apparent distress EENT: PERRL/EOMI Neck: normal alignment Cardiovascular: normal peripheral pulses Respiratory/Chest: no respiratory distress Abdomen: soft Hermes Carranza MD Oct 04, 2017 14:00
--- NOTE | 2017-10-04 14:14 | Pulmonology Progress Note ---
Assessment/Plan Problems: (1) unable to care for himself (2) Cataracts, bilateral (3) Diabetes mellitus Assessment/Plan doing better all noted sliding sclae pt/ot evaluation dvt propylaxis dc planning Subjective ROS Limited/Unobtainable: No Allergies: Coded Allergies: No Known Allergies (Unverified , 09/23/17) Objective Last 24 Hour Vital Signs Date Time Temp Pulse Resp B/P (MAP) Pulse Ox O2 Delivery O2 Flow Rate FiO2 10/04/17 12:00 98.3 65 18 115/73 (87) 97 98.3 10/04/17 09:00 Room Air 10/04/17 08:15 61 111/72 10/04/17 08:00 97.3 61 20 111/72 (85) 98 97.3 10/04/17 04:00 97.2 66 20 128/83 (98) 98 97.2 10/03/17 21:03 Room Air 10/03/17 20:00 98.4 67 20 108/69 (82) 97 98.4 10/03/17 17:29 77 135/85 10/03/17 16:00 97.5 77 20 135/85 (102) 97 97.5 Intake and Output 10/03/17 10/04/17 19:00 07:00 Intake Total 240 ml 1080 ml Output Total 630 ml Balance 240 ml 450 ml Intake Oral 240 ml 1080 ml Output Urine Total 630 ml # Voids 3 4 # Bowel Movements 1 Objective General Appearance: WD/WN Lines, tubes and drains: peripheral, central line HEENT: normocephalic, atraumatic Neck: non-tender, normal alignment Respiratory/Chest: chest wall non-tender, lungs clear Breasts: no masses Cardiovascular/Chest: normal peripheral pulses Abdomen: normal bowel sounds Genitourinary/Rectal: normal genital exam, normal prostate exam Extremities: normal range of motion Current Medications Medications (Trade) Dose Ordered Sig/Cornelius Route PRN Reason Start Time Stop Time Status Last Admin Dose Admin Acetaminophen (Tylenol) 650 mg Q4H PRN ORAL Mild Pain/Temp > 100.5 10/01/17 17:15 10/31/17 17:14 10/02/17 05:48 Al Hydroxide/Mg Hydroxide (Mylanta II) 30 ml Q6H PRN ORAL dyspepsia 09/23/17 18:00 10/23/17 17:59 Amlodipine Besylate (Norvasc) 2.5 mg BID ORAL 09/27/17 09:00 10/27/17 08:59 10/03/17 17:29 Aspirin (Ecotrin) 81 mg DAILY ORAL 09/26/17 09:00 10/26/17 08:59 10/04/17 08:15 Atorvastatin Calcium (Lipitor) 40 mg BEDTIME ORAL 09/27/17 21:00 10/24/17 20:59 10/03/17 20:51 Clonidine HCl (Catapres Tab) 0.1 mg Q4H PRN ORAL For High Blood Pressure 09/23/17 18:00 10/23/17 17:59 09/26/17 19:20 Dextrose (Dextrose 50%) 25 ml STAT PRN IV Hypoglycemia 09/23/17 18:00 10/23/17 17:59 Dextrose (Dextrose 50%) 50 ml STAT PRN IV Hypoglycemia 09/23/17 18:00 10/23/17 17:59 Fluoxetine HCl (PROzac) 20 mg DAILY ORAL 09/28/17 09:00 10/28/17 08:59 10/04/17 08:15 Haloperidol Lactate (Haldol) 5 mg Q4H PRN IM Agitation 09/25/17 17:47 10/25/17 17:29 09/27/17 21:51 Heparin Sodium (Porcine) (Heparin 5000 units/ml) 5,000 units EVERY 12 HOURS SUBQ 09/23/17 21:00 10/23/17 20:59 10/04/17 08:17 Insulin Aspart (NovoLOG) BEFORE MEALS AND HS SUBQ 09/23/17 21:00 10/23/17 20:59 09/29/17 11:56 Nitroglycerin (Ntg) 0.4 mg Q5M X 3 DOSES PRN SL Prn Chest Pain 09/23/17 18:00 10/23/17 17:59 Ondansetron HCl (Zofran) 4 mg Q6H PRN IVP Nausea & Vomiting 09/23/17 18:00 10/23/17 17:59 Polyethylene Glycol (Miralax) 17 gm HSPRN PRN ORAL Constipation 09/23/17 18:00 10/23/17 17:59 Quetiapine Fumarate (SEROquel) 25 mg Q4H PRN ORAL Agitation 09/25/17 17:30 10/25/17 17:29 Sitagliptin Phosphate (Januvia) 25 mg DAILY ORAL 09/24/17 09:00 10/24/17 08:59 10/04/17 08:15 Jesus Pichardo MD Oct 04, 2017 14:14
[2017-10-04] MEDS ORDERED: NORVASC2.5 MG ORAL (15:53)
[2017-10-04] MEDS ORDERED: GLUCOPHAGE1000 MG ORAL (15:53)
[2017-10-04 16:00] VITALS: BP 129/81
[2017-10-04 20:00] VITALS: BP 133/82
--- NOTE | 2017-10-04 22:50 | Cardiology Progress Note ---
Assessment/Plan Assessment/Plan 1. Accelerated hypertension, well controlled BP, continue amlodipine, LVEF at 60 %. 2. Sinus bradycardia, resolved, asymptomatic. No treatment is required. 3. History of diabetes mellitus, continue ASA and atorvastatin. 4. Dyslipidemia with elevated LDL, continue atorvastatin. Subjective Subjective No cardiac events. Objective Last 24 Hour Vital Signs Date Time Temp Pulse Resp B/P (MAP) Pulse Ox O2 Delivery O2 Flow Rate FiO2 10/04/17 20:00 98.2 57 18 133/82 (99) 96 98.2 10/04/17 17:58 63 129/81 10/04/17 16:00 98.3 63 17 129/81 (97) 98 98.3 10/04/17 12:00 98.3 65 18 115/73 (87) 97 98.3 10/04/17 09:00 Room Air 10/04/17 08:15 61 111/72 10/04/17 08:00 97.3 61 20 111/72 (85) 98 97.3 10/04/17 04:00 97.2 66 20 128/83 (98) 98 97.2 Intake and Output 10/03/17 10/04/17 19:00 07:00 Intake Total 240 ml 1080 ml Output Total 630 ml Balance 240 ml 450 ml Intake Oral 240 ml 1080 ml Output Urine Total 630 ml # Voids 3 4 # Bowel Movements 1 2D Echo: EF 60%, Mild MR, Grade I LVDD, RVSP 15 mmHg Objective HEENT: Atraumatic and normocephalic. Anicteric. Dense bilateral cataracts. NECK: JVP less than 5 cm. No carotid bruit. Carotid upstrokes 2+ bilaterally. CARDIOVASCULAR: Normal S1, S2. Regular rate and rhythm. No murmurs, gallops, or rubs. PMI is at fourth intercostal space in midclavicular line. LUNGS: Clear to auscultation bilaterally. ABDOMEN: Soft, nontender, and nondistended. No hepatosplenomegaly. Positive bowel sounds. EXTREMITIES: No evidence of edema, clubbing, or cyanosis. Flavio Yanez MD Oct 04, 2017 22:50
--- NOTE | 2017-10-04 23:27 | General Progress Note ---
Assessment/Plan Assessment/Plan Adjustment Disorder Anxiety -ativan prn -the pt is not hold-able and not at imminent dts/dto -dc home vs sniff Subjective Date patient seen: Oct 04, 2017 Neurologic/Psychiatric: Reports: anxiety, depressed, emotional problems Allergies: Coded Allergies: No Known Allergies (Unverified , 09/23/17) Subjective denied si/hi Objective Last 24 Hour Vital Signs Date Time Temp Pulse Resp B/P (MAP) Pulse Ox O2 Delivery O2 Flow Rate FiO2 10/04/17 20:00 98.2 57 18 133/82 (99) 96 98.2 10/04/17 17:58 63 129/81 10/04/17 16:00 98.3 63 17 129/81 (97) 98 98.3 10/04/17 12:00 98.3 65 18 115/73 (87) 97 98.3 10/04/17 09:00 Room Air 10/04/17 08:15 61 111/72 10/04/17 08:00 97.3 61 20 111/72 (85) 98 97.3 10/04/17 04:00 97.2 66 20 128/83 (98) 98 97.2 Intake and Output 10/03/17 10/04/17 19:00 07:00 Intake Total 240 ml 1080 ml Output Total 630 ml Balance 240 ml 450 ml Intake Oral 240 ml 1080 ml Output Urine Total 630 ml # Voids 3 4 # Bowel Movements 1 Height (Feet): 5 Height (Inches): 4.00 Weight (Pounds): 142 Cynthia Marvin MD Oct 04, 2017 23:27
--- NOTE | 2017-10-06 08:02 | Discharge Summary ---
Discharge Summary Discharge Summary _ DATE OF ADMISSION: 09/23/2017 DATE OF DISCHARGE: 10/04/2017 REASON FOR ADMISSION: 72 years old homeless male with past medical history of diabetes mellitus, hypertension, dyslipidemia, recent vision loss in the right eye and prior vision loss in the left eye, was brought to emergency room for evaluation. Patient apparently was suicidal and threatened to kill himself with knife which was never found. Patient reported pounding headache 10 out of 10 and recent vision loss in the right eye. He denied any trauma. No fevers no chills. Upon evaluation vital signs revealed elevated blood pressure 169/100. Laboratory workup revealed no leukocytosis stable hemoglobin and hematocrit. Urinalysis was negative for evidence of UTI. Electrolytes, renal parameters, glucose were all within normal limits. Troponin was negative,proBNP 85 . EKG revealed normal sinus rhythm, no acute ischemic changes. TSH within normal limits. CT of the head revealed no evidence of acute intracranial bleeding or mass effect. Chronic age-related changes noted. Noted 6 mm. focus of slightly increased attenuation in central greta of uncertain significance. Patient admitted with diagnosis of headache, bilateral cataract, blindness, suicidal ideation, accelerated hypertension, dyslipidemia ,diabetes mellitus. CONSULTANTS: insurance counselor Dr. Yanez neurologist Dr. Callahan pulmonary Dr. Pichardo psychiatrist [facility]: Patient admitted. Patient initially was provided with sitter for safety. Neurology evaluation was requested. Patient subsequently undergone MRI of the brain which demonstrated no findings that would correlate with pontine abnormality, reported on recent CT of the brain. The finding was most likely artifact. MRI of the brain was negative for any acute intracranial pathology. Chest x-ray revealed no acute cardiopulmonary pathology. Carotid duplex was essentially negative. [employer] closely followed. Antihypertensive medication regimen was optimized to keep blood pressure under control. Blood pressure stabilized. Echocardiogram revealed preserved ejection fraction of 60% and right ventricular systolic pressure of 15. Lipid panel revealed elevated LDL of 118. Patient was on cardiac low-fat low- cholesterol diabetic diet. Patient was educated on diet. Patient started on statin. DVT prophylaxis provided. Supplemental oxygen provided as needed to keep pulse oximetry above 92%. Pulmonary toilet was on standby as needed. Headache resolved. Severe headache was likely due to accelerated hypertension. 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 Patient needs to be seen by assembler show motor as outpatient and to be treated if he had treatable vision loss. Patient with evidence of bilateral cataract and prior to admission was seen by assembler show motor already. Patient will need to follow up as outpatient with assembler show motor for follow-up care. Patient was working with physical and occupational therapists. Fall precautions maintained. Patient was unable to care for himself and needed placement. Blood sugar was managed with sliding scale insulin, blood sugar was stable. Psychiatrist seen and evaluated the patient ,diagnosed patient with adjustment disorder and anxiety disorder . Psychiatrist provided reality orientation and supportive therapy. Psychiatric medication regimen was optimized. Per psychiatrist patient was not holdable. Patient was not at imminent danger to self or others. Psychiatrist cleared patient for discharge. Placement was found in assisted living. 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 DISCHARGE INSTRUCTIONS: Patient discharged to [facility] assisted living. Follow-up with the assembler show motor as outpatient. I have been assigned to dictate discharge summary for this account. I was not involved in the patient's management. Anna Vu NP Oct 06, 2017 08:02
== END 2017-10-04 21:05 | disposition home or self-care (01) | DRG 54 ==
LOC: EDBD 10:15 → EMR 11:28 → 4E 12:44 → EDBEDREQSVC 16:06 → EDBEDREQ 16:06 → 4E 09-24 12:21
DX: R51 Headache (principal); R45.851 Suicidal ideations; E11.9 Type 2 diabetes mellitus without complications; R42 Dizziness and giddiness; I11.9 Hypertensive heart disease without heart failure; R00.1 Bradycardia, unspecified; H54.3 Unqualified visual loss, both eyes; H26.9 Unspecified cataract; I34.0 Nonrheumatic mitral (valve) insufficiency; E78.5 Hyperlipidemia, unspecified; Z59.0 Homelessness; F43.20 Adjustment disorder, unspecified; F41.9 Anxiety disorder, unspecified
CPT/HCPCS: 36415; 70450; 70553; 71045; 80048; 80053; 80061; 81003; 82550; 82962; 83880; 84443; 84484; 85025; 85610; 85651; 85730; 87081; 93005; 93306; 93880; 94664; 99285; A9585; J1815